=== PATIENT | male | born 1940 | race Caucasian/White ===

== ENCOUNTER 2018-02-06 07:09 | Inpatient (IN) | payer MEDICARE, BC ==
[~2018-02-06] VITALS: Ht 185.4 cm; Wt 154.0 kg
[2018-02-06] VITALS (11 sets, daily range): BP systolic 112–189; BP diastolic 56–98; PULSE 66–96; RESP 16–20; TEMP 98.4–98.6; O2SAT 90–100
[~2018-02-06 07:09] MED LIST: FURO20TA PO; FURO40TA PO; GLIP5 PO; HYDR-3129 PO; LIPI80TA16 PO; METO100T PO; POTA-267 PO; TAB-TAB PO; XARE20TA PO
[2018-02-06] MEDS ORDERED: XARE20TA PO (07:26)
[2018-02-06] MEDS ORDERED: METO100T PO (07:26)
[2018-02-06] MEDS ORDERED: KLOR10TA PO (07:26)
[2018-02-06] MEDS ORDERED: ATOR40TA16 PO (07:26)
[2018-02-06] MEDS ORDERED: DOFE500 PO (07:26)
[2018-02-06] MEDS ORDERED: FURO20TA PO (07:26)
[2018-02-06] MEDS ORDERED: GLIP5TAB8 PO (07:26)
[2018-02-06] MEDS ORDERED: NITROGLYCERIN 2% OINT 1 GM PACKET TOP ONE (07:30)
[2018-02-06] MEDS ORDERED: SODIUM CHLORIDE 0.9% FLUSH 10 ML FLUSH IVF PRN (07:30)
--- NOTE | 2018-02-06 07:50 | PD ---
HPI Chief Complaint: Chest Pain Time Seen by Provider: 07:25 Travel History International Travel<30 days: No Contact w/Intl Traveler<30days: No Traveled to known affect area: No History of Present Illness HPI This is a 77-year-old male with a history of atrial fibrillation, diabetes mellitus, hypertension, hyperlipidemia, who presents today with complaints of chest pain this morning. Patient states it started about 4 AM. He reports it as a substernal pain/pressure like. He reports that as a 5-6 out of pain scale. No radiation. There was associated shortness of breath. Patient states it lasted about a half hour. There is no diaphoresis. Patient has had an occasional cough with no productive phlegm. There are no other complaints at the time of my examination. The patient is taking Xarelto. 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 PFSH Past Medical History Atrial Fibrillation: Yes (AFIB/AFLUTTER) Heart Rhythm Problems: Yes (A-FIB) Cancer: No Cardiac Catheterization: Yes Cardiovascular Problems: Yes High Cholesterol: Yes Chest Pain: No Congestive Heart Failure: Yes Diabetes: Yes (PT STATES PRE-DIABETIC) Patient Takes Glucophage: No Diminished Hearing: No Endocrine: Yes Gastrointestinal Disorders: No Genitourinary: No Hypertension: Yes Immune Disorder: No Implanted Vascular Access Dvce: No Musculoskeletal: No Neurologic: No Psychiatric: No Reproductive: No Respiratory: No Past Surgical History Abdominal Surgery: Yes Cardiac Surgery: Yes (ABLATION X 2, LAST 01/07; STENT TO LAD) Coronary Stent: Yes Other Surgery: Yes Social History Alcohol Use: No (DENIES) Tobacco Use: No Substance Use: No (DENIES) Allergies-Medications (Allergen,Severity, Reaction): Coded Allergies: penicillin G (Unverified Allergy, Mild, RASH, 02/06/18) Reported Meds & Prescriptions Reported Meds & Active Scripts Active Reported Klor-Con 10 (Potassium Chloride) 10 Meq Tab 10 Meq PO DAILY Xarelto (Rivaroxaban) 20 Mg Tab 20 Mg PO DAILY Atorvastatin (Atorvastatin Calcium) 40 Mg Tab 40 Mg PO HS Tikosyn (Dofetilide) 500 Mcg Cap 500 Mcg PO BID For Creatinine Clearance >60 mL/min Glipizide 5 Mg Tab 5 Mg PO BIDAC Take 30 minutes before a meal Metoprolol Tartrate 100 Mg Tab 100 Mg PO TID Furosemide 20 Mg Tab 20 Mg PO DAILY Review of Systems Except as stated in HPI: all other systems reviewed are Neg General / Constitutional: No: Fever, Chills HENT: No: Headaches, Lightheadedness Cardiovascular: Positive: Chest Pain or Discomfort, Irregular Rhythm, No: Palpitations Respiratory: Positive: Shortness of Breath (History of A. fib), No: Cough Gastrointestinal: No: Nausea, Vomiting, Abdominal Pain Genitourinary: No: Dysuria, Decreased Urinary Output Musculoskeletal: Positive: Edema (Chronic), No: Weakness, Pain Neurologic: No: Weakness, Dizziness, Syncope Physical Exam Narrative GENERAL: Well-developed well-nourished male in mild respiratory discomfort SKIN: Focused skin assessment warm/dry. HEAD: Atraumatic. Normocephalic. EYES: No scleral icterus. No injection or drainage. ENT: No nasal bleeding or discharge. Mucous membranes pink and moist. NECK: Trachea midline. No JVD. CARDIOVASCULAR: Regular rate and rhythm. Rate in the low 90s. No murmur appreciated. RESPIRATORY: No accessory muscle use. Clear to auscultation. Breath sounds equal bilaterally. GASTROINTESTINAL: Abdomen soft, non-tender, nondistended. Hepatic and splenic margins not palpable. MUSCULOSKELETAL: No obvious deformities. No clubbing. No cyanosis. 1+ edema bilateral pretibial areas. NEUROLOGICAL: Awake and alert. No obvious cranial nerve deficits. Motor grossly within normal limits. Normal speech. Data Data Last Documented VS Vital Signs Date Time Temp Pulse Resp B/P (MAP) Pulse Ox O2 Delivery O2 Flow Rate FiO2 02/06/18 10:01 71 18 112/59 (76) 93 Nasal Cannula 2.00 02/06/18 07:12 98.6 Orders Orders Basic Metabolic Panel (Bmp) (02/06/18 07:26) Ckmb (Isoenzyme) Profile (02/06/18 07:26) Complete Blood Count With Diff (02/06/18 07:26) Magnesium (Mg) (02/06/18 07:26) Prothrombin Time / Inr (Pt) (02/06/18 07:26) Act Partial Throm Time (Ptt) (02/06/18 07:26) Troponin I (02/06/18 07:26) Ecg Monitoring (02/06/18 07:26) Bilateral Bp Monitoring (02/06/18 07:26) Iv Access Insert/Monitor (02/06/18 07:26) Oximetry (02/06/18 07:26) Oxygen Administration (02/06/18 07:26) Nitroglycerin 2% Oint (Nitroglycerin 2% (02/06/18 07:30) Sodium Chloride 0.9% Flush (Ns Flush) (02/06/18 07:30) Chest, Pa & Lat (02/06/18 07:26) Electrocardiogram (02/06/18 07:12) B-Type Natriuretic Peptide (02/06/18 08:33) CKMB (02/06/18 07:50) CKMB% (02/06/18 07:50) Admit Order (Ed Use Only) (02/06/18 10:06) Labs Laboratory Tests Test 02/06/18 07:50 White Blood Count 9.5 TH/MM3 Red Blood Count 5.02 MIL/MM3 Hemoglobin 15.7 GM/DL Hematocrit 46.7 % Mean Corpuscular Volume 93.1 FL Mean Corpuscular Hemoglobin 31.2 PG Mean Corpuscular Hemoglobin Concent 33.5 % Red Cell Distribution Width 14.2 % Platelet Count 158 TH/MM3 Mean Platelet Volume 8.6 FL Neutrophils (%) (Auto) 57.9 % Lymphocytes (%) (Auto) 28.6 % Monocytes (%) (Auto) 10.3 % Eosinophils (%) (Auto) 2.7 % Basophils (%) (Auto) 0.5 % Neutrophils # (Auto) 5.5 TH/MM3 Lymphocytes # (Auto) 2.7 TH/MM3 Monocytes # (Auto) 1.0 TH/MM3 Eosinophils # (Auto) 0.3 TH/MM3 Basophils # (Auto) 0.0 TH/MM3 CBC Comment DIFF FINAL Differential Comment Prothrombin Time 12.0 SEC Prothromb Time International Ratio 1.2 RATIO Activated Partial Thromboplast Time 32.4 SEC Blood Urea Nitrogen 24 MG/DL Creatinine 1.42 MG/DL Random Glucose 123 MG/DL Calcium Level 8.6 MG/DL Magnesium Level 2.0 MG/DL Sodium Level 141 MEQ/L Potassium Level 4.5 MEQ/L Chloride Level 107 MEQ/L Carbon Dioxide Level 28.2 MEQ/L Anion Gap 6 MEQ/L Estimat Glomerular Filtration Rate 48 ML/MIN Total Creatine Kinase 245 U/L Creatine Kinase MB 7.5 NG/ML Troponin I 0.32 NG/ML [facility] Medical Decision Making Medical Screen Exam Complete: Yes Emergency Medical Condition: Yes Differential Diagnosis ACS versus CHF versus pneumonia versus musculoskeletal pain. Narrative Course 77-year-old male with a history of hypertension, hyperlipidemia, diabetes mellitus, coronary artery disease, atrial fibrillation, who presents today with complaints of shortness of breath and chest pain this morning. The patient is pain-free at the time of my evaluation. Patient's blood pressure was elevated in the 190 systolic. Patient had a O2 sat of 90% on room air. Chest x-ray shows mild pulmonary vascular congestion. Patient also has an elevated troponin at 0.3. He will be admitted to the hospital and his troponin will be trended. The patient does see Dr. Gomez and will be a consult with her or her partners. I discussed with the patient the findings and he is amenable to the plan. He has been given Lasix 40 mg IV 1 dose. He also has the nitroglycerin paste on his chest wall and his repeat blood pressure is within normal limits. Diagnosis Primary Impression: Non-STEMI (non-ST elevated myocardial infarction) Additional Impressions: CHF exacerbation Kidney injury Diabetes mellitus Hyperlipidemia Anticoagulated History of atrial fibrillation Admitting Information Admitting Physician Requests: Admit Olu Torres MD Feb 06, 2018 07:50
--- NOTE | 2018-02-06 08:13 | RADRPT ---
EXAM DATE/TIME: 02/06/2018 07:37 [place] COMPARISON: No previous studies available for comparison. INDICATIONS : Shortness of breath. Cough and chest pain. MEDICAL HISTORY : Diabetes. SURGICAL HISTORY : Coronary artery stent. ENCOUNTER: Initial ACUITY: 1 day PAIN SCORE: 3/10 LOCATION: Bilateral chest FINDINGS: PA and lateral views of the chest demonstrate the lungs to be symmetrically aerated without evidence of mass, infiltrate or effusion. Mild interstitial prominence within normal size heart. No other co nsolidation. No pneumothorax. No pleural effusion. CONCLUSION: Mild interstitial prominence within normal size heart in this patient with history of congestive fail ure. Correlation suggested Robin Bowers MD FACR on February 06, 2018 at 8:09 Board Certified Radiologist. This report was verified electronically.
[2018-02-06 08:21] LABS: AUTOMATED NEUTROPHIL # 5.5 TH/MM3 (1.8-7.7); BASOPHIL % 0.5 % (0.0-2.0); EOSINOPHIL # 0.3 TH/MM3 (0-0.4); EOSINOPHIL % 2.7 % (0.0-4.0); HEMATOCRIT 46.7 % (39.0-51.0); HEMOGLOBIN 15.7 GM/DL (13.0-17.0); LYMPH % 28.6 % (9.0-44.0); LYMPHOCYTE # 2.7 TH/MM3 (1.0-4.8); MEAN CELL VOLUME 93.1 FL (80.0-100.0); MEAN CORPUSCULAR HEMOGLOBIN 31.2 PG (27.0-34.0); MEAN CORPUSCULAR HGB CONC 33.5 % (32.0-36.0); MEAN PLATELET VOLUME 8.6 FL (7.0-11.0); MONO % 10.3 % (0.0-8.0); NEUT % 57.9 % (16.0-70.0); PLATELET COUNT 158 TH/MM3 (150-450); RED BLOOD COUNT 5.02 MIL/MM3 (4.50-5.90); RED CELL DISTRIBUTION WIDTH 14.2 % (11.6-17.2); WHITE BLOOD COUNT 9.5 TH/MM3 (4.0-11.0)
[2018-02-06 08:26] LABS: INTERNATIONAL NORMALIZED RATIO 1.2 RATIO
[2018-02-06 09:09] LABS: BICARBONATE 28.2 MEQ/L (21.0-32.0); BLOOD UREA NITROGEN 24 MG/DL (7-18); CALCIUM 8.6 MG/DL (8.5-10.1); CHLORIDE 107 MEQ/L (98-107); CREATININE 1.42 MG/DL (0.60-1.30); GLOMERULAR FILTRATION RATE 48 ML/MIN (>89); GLUCOSE,RANDOM 123 MG/DL (74-106); SODIUM (NA) 141 MEQ/L (136-145); TROPONIN I 0.32 NG/ML (0.02-0.05)
--- NOTE | 2018-02-06 10:17 | HHI.HP ---
[facility] Service Family Medicine Primary Care Physician Alvin Mcdermott, DO Admission Diagnosis non STEMI, CHF,HTN, CAD, DM Diagnoses: International Travel<30 Days: No Contact w/Intl Traveler<30days: No Known Affected Area: No History of Present Illness Patient is a 77 year old male with a past medical history significant of A.fib s /p ablation and electrocardioversion, CAD s/p MD with stent placement, CHF, DM Type II, HTN and hyperlipidemia who presents with chest discomfort and shortness of breath since 4:00 a.m. on day of admission. The patient had just laid down for the night when he started to experience a 2/10, non-radiating discomfort across his chest, "located more toward the middle." He says it wasn' t "pain per se." It felt like heartburn; patient had eaten dinner at 22:00. He also reports shortness of breath and non-productive cough. He tossed and turned in discomfort for an hour. He states that as soon as he sat up, his symptoms improved. He took his vitals: pulse ox 89-90% on room air, HR 88, and BP 250/ 50. By 6:30 a.m., he was on his way to the hospital despite complete resolution of symptoms. Patient did not take any medication to relieve symptoms. He denies fever and chills. Per , he napped more than usual yesterday. 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 He says he has ECHO scheduled for May. (Fannie Calvillo MD R1) Review of Systems Constitutional: DENIES: Fatigue, Fever, Weight gain, Weight loss, Chills, Change in appetite Eyes: DENIES: Blurred vision, Vision loss, Double Vision Ears, nose, mouth, throat: COMPLAINS OF: Running Nose (At baseline), DENIES: Nasal discharge, Throat pain, Ear Pain Respiratory: COMPLAINS OF: Cough, Wheezing, Shortness of breath, DENIES: Sputum production Cardiovascular: COMPLAINS OF: Chest pain, Lower Extremity Edema (At baseline ) , DENIES: Palpitations Gastrointestinal: DENIES: Abdominal pain, Black stools, Bloody stools, Constipation, Diarrhea, Nausea, Vomiting Musculoskeletal: DENIES: Joint pain, Muscle aches Integumentary: DENIES: Nail changes, Rash Neurologic: DENIES: Headache Psychiatric: DENIES: Anxiety, Depression (Fannie Calvillo MD R1) Past Family Social History Past Medical History Atrial fibrillation - s/p ablation x3 - temporary success; electrocardioversion - 2 years ago; A fib controlled since electrocardioversion and with current meds. CAD Myocardial infarction - 2012 s/p stent placement. Pre-diabetes mellitus Hyperlipidemia Hypertension Past Surgical History Ablations x3 as above. Cyst removal as a teenager Reported Medications Klor-Con 10 (Potassium Chloride) 10 Meq Tab 10 Meq PO DAILY Xarelto (Rivaroxaban) 20 Mg Tab 20 Mg PO DAILY Atorvastatin (Atorvastatin Calcium) 40 Mg Tab 40 Mg PO HS Tikosyn (Dofetilide) 500 Mcg Cap 500 Mcg PO BID Glipizide 5 Mg Tab 5 Mg PO BIDAC Metoprolol Tartrate 100 Mg Tab 100 Mg PO TID Furosemide 20 Mg Tab 20 Mg PO DAILY (Fannie Calvillo MD R1) Allergies: Coded Allergies: penicillin G (Unverified Allergy, Mild, RASH, 02/06/18) Active Ordered Medications Current Medications Medications (Trade) Dose Ordered Sig/Marilyn Route Start Time Stop Time Status Last Admin (Lipitor) 40 mg HS PO 02/06/18 21:00 (Lasix) 20 mg DAILY PO 02/06/18 11:30 02/06/18 11:57 (Lopressor) 100 mg TID PO 02/06/18 13:00 02/06/18 13:38 (KCl) 10 meq DAILY PO 02/06/18 11:30 02/06/18 11:57 (Xarelto) 20 mg DAILY PO 02/06/18 12:00 Future Hold 02/06/18 11:57 (NS Flush) 2 ml BID IV FLUSH 02/06/18 21:00 (NS Flush) 2 ml UNSCH PRN IV FLUSH 02/06/18 11:15 (Aspirin) 325 mg NOW PO 02/06/18 11:15 02/07/18 11:14 (Nitroglycerin 2% Oint) 0.5 inch Q6HR PRN TOP 02/06/18 11:15 (Morphine Inj) 2 mg Q1HR PRN IV PUSH 02/06/18 11:15 (Narcan Inj) 0.4 mg UNSCH PRN IV PUSH 02/06/18 11:15 (Loraine-Colace) 1 tab BID PO 02/06/18 21:00 (Milk Of Magnesia Liq) 30 ml Q12H PRN PO 02/06/18 11:15 (Senokot) 17.2 mg Q12H PRN PO 02/06/18 11:15 (Dulcolax Supp) 10 mg DAILY PRN RECTAL 02/06/18 11:15 (Lactulose Liq) 30 ml DAILY PRN PO 02/06/18 11:15 (NovoLOG SUPPLEMENTAL SCALE) 1 ACHS SLIDING SCALE SQ 02/06/18 12:00 (Tikosyn) 500 mcg BID PO 02/06/18 12:00 02/06/18 11:57 (D50w (Vial) Inj) 50 ml UNSCH PRN IV PUSH 02/06/18 12:00 (Glucagon Inj) 1 mg UNSCH PRN OTHER 02/06/18 12:00 Family History Mother - breast cancer Father (passed at 81 y/o)- gastric ulcer, MD Social History Lives with of 54 years. 's contact information: [phone] (cell) [phone] (home) Alcohol: None. Tobacco: None; used to smoke. Drugs: None. (Fannie Calvillo MD R1) Physical Exam Vital Signs Vital Signs Date Time Temp Pulse Resp B/P (MAP) Pulse Ox O2 Delivery O2 Flow Rate FiO2 02/06/18 10:01 71 18 112/59 (76) 93 Nasal Cannula 2.00 02/06/18 08:07 77 18 135/64 (87) 93 Nasal Cannula 2.00 02/06/18 07:15 90 Nasal Cannula 2.00 02/06/18 07:15 92 92 Nasal Cannula 2.00 02/06/18 07:12 98.6 96 20 189/98 (128) 90 Physical Exam GENERAL: This is a well-nourished, well-developed, morbidly obese patient, in no apparent distress. SKIN: Warm and dry. HEAD: Atraumatic. Normocephalic. No temporal or scalp tenderness. EYES: Pupils equal round and reactive. Extraocular motions intact. No scleral icterus. No injection or drainage. ENT: Nose without bleeding, purulent drainage or septal hematoma; but nasal cannula in place so exam is limited. Throat without erythema, tonsillar hypertrophy or exudate. Uvula midline. Airway patent. NECK: Trachea midline. No JVD or lymphadenopathy. Supple, nontender, no meningeal signs. CARDIOVASCULAR: Regular rate and rhythm without murmurs, gallops, or rubs. RESPIRATORY: Clear to auscultation. Breath sounds equal bilaterally. No wheezes , rales, or rhonchi. GASTROINTESTINAL: Abdomen soft, non-tender, nondistended. No hepato-splenomegaly , or palpable masses. No guarding. MUSCULOSKELETAL: Extremities without clubbing, cyanosis. Left foot with 2+ edema. No joint tenderness, effusion, or edema noted. No calf tenderness. NEUROLOGICAL: Awake and alert. Cranial nerves II through XII intact. Motor and sensory grossly within normal limits. Five out of 5 muscle strength in all muscle groups. Normal speech. Laboratory Laboratory Tests Test 02/06/18 07:50 White Blood Count 9.5 Red Blood Count 5.02 Hemoglobin 15.7 Hematocrit 46.7 Mean Corpuscular Volume 93.1 Mean Corpuscular Hemoglobin 31.2 Mean Corpuscular Hemoglobin Concent 33.5 Red Cell Distribution Width 14.2 Platelet Count 158 Mean Platelet Volume 8.6 Neutrophils (%) (Auto) 57.9 Lymphocytes (%) (Auto) 28.6 Monocytes (%) (Auto) 10.3 Eosinophils (%) (Auto) 2.7 Basophils (%) (Auto) 0.5 Neutrophils # (Auto) 5.5 Lymphocytes # (Auto) 2.7 Monocytes # (Auto) 1.0 Eosinophils # (Auto) 0.3 Basophils # (Auto) 0.0 CBC Comment DIFF FINAL Differential Comment Prothrombin Time 12.0 Prothromb Time International Ratio 1.2 Activated Partial Thromboplast Time 32.4 Blood Urea Nitrogen 24 Creatinine 1.42 Random Glucose 123 Calcium Level 8.6 Magnesium Level 2.0 Sodium Level 141 Potassium Level 4.5 Chloride Level 107 Carbon Dioxide Level 28.2 Anion Gap 6 Estimat Glomerular Filtration Rate 48 Total Creatine Kinase 245 Creatine Kinase MB 7.5 Troponin I 0.32 (Fannie Calvillo MD R1) Result Diagram: 02/06/18 0750 02/06/18 0750 Imaging Last 72 hours Impressions Chest X-Ray 02/06/18 1901 Signed Impressions: Service Date/Time: Tuesday, February 06, 2018 07:37 - CONCLUSION: Mild interstitial prominence within normal size heart in this patient with history of congestive failure. Correlation suggested Robin Bowers MD FACR (Fannie Calvillo MD R1) Caprini VTE Risk Assessment Caprini VTE Risk Assessment: Mod/High Risk (score >= 2) Caprini Risk Assessment Model Point Value = 1 Point Value = 2 Point Value = 3 Point Value = 5 Age 41-60 Minor surgery BMI > 25 kg/m2 Swollen legs Varicose veins or History of unexplained or recurrent spontaneous Oral contraceptives or hormone replacement Sepsis (< 1 month) Serious lung disease, including pneumonia (< 1 month) Abnormal pulmonary function Acute myocardial infarction Congestive heart failure (< 1 month) History of inflammatory bowel disease Medical patient at bed rest Age 61-74 Arthroscopic surgery Major open surgery (> 45 min) Laparoscopic surgery (> 45 min) Malignancy Confined to bed (> 72 hours) Immobilizing plaster cast Central venous access Age >= 75 History of VTE Family history of VTE Factor V Leiden Prothrombin [id number] Lupus anticoagulant Anticardiolipin antibodies Elevated serum homocysteine Heparin-induced thrombocytopenia Other congenital or acquired thrombophilia Stroke (< 1 month) Elective arthroplasty Hip, pelvis, or leg fracture Acute spinal cord injury (< 1 month) Prophylaxis Regimen Total Risk Factor Score Risk Level Prophylaxis Regimen 0-1 Low Early ambulation 2 Moderate Order ONE of the following: *Sequential Compression Device (SCD) *Heparin 5000 units SQ BID 3-4 Higher Order ONE of the following medications: *Heparin 5000 units SQ TID *Enoxaparin/Lovenox 40 mg SQ daily (WT < 150 kg, CrCl > 30 mL/min) *Enoxaparin/Lovenox 30 mg SQ daily (WT < 150 kg, CrCl > 10-29 mL/min) *Enoxaparin/Lovenox 30 mg SQ BID (WT < 150 kg, CrCl > 30 mL/min) AND/OR *Sequential Compression Device (SCD) 5 or more Highest Order ONE of the following medications: *Heparin 5000 units SQ TID (Preferred with Epidurals) *Enoxaparin/Lovenox 40 mg SQ daily (WT < 150 kg, CrCl > 30 mL/min) *Enoxaparin/Lovenox 30 mg SQ daily (WT < 150 kg, CrCl > 10-29 mL/min) *Enoxaparin/Lovenox 30 mg SQ BID (WT < 150 kg, CrCl > 30 mL/min) AND *Sequential Compression Device (SCD) (Fannie Calvillo MD R1) Assessment and Plan Assessment and Plan Patient is a 77 year old male with a past medical history significant of A.fib s /p ablation and electrocardioversion, CAD s/p MD with stent placement, CHF, DM Type II, HTN and hyperlipidemia who presents with chest discomfort and shortness of breath since 4:00 a.m. on day of admission. In ED, Troponin of 0.[address] depression in lateral leads. Admitted for ACS rule-out. Code Status Full code. Discussed Condition With Drs. Elliott and Angel. (Fannie Calvillo MD R1) Attending Attestation Patient seen and examined, discussed with resident team; pt seen in ER at admission. I agree with assessment and management as documented and discussed with me. The patient has been seen and examined. The chart and all resident notes have been reviewed. I agree that inpatient care is appropriate and that a two midnight stay is expected for the reasons documented in the resident history and physical. I have discussed this with the resident and certify the resident s order for inpatient admission. Pt with acute onset of chest discomfort early in the morning, which continued for roughly 1-2 hours. He sought attention in ER, where NSTEMI was diagnosed, based on 2nd set of troponin. In addition, on exam: No tenderness to palpation of sternum. Cardiology has been consulted, appreciate recs. Anticipate cardiac cath on Friday, as pt received Xarelto yesterday at home and today. 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 Chest discomfort relieved without medical intervention. During admission encounter, patient's oxygen saturation is 94% on 2L of oxygen via NC. He is breathing comfortably. EKG with lateral lead (V4, V5) ST depression. Repeat EKG without evidence of ST elevation or depression. Follow-up repeat q6hr EKG. Troponin: 0.32 -> 5.57. Follow-up repeat q6hr Troponin. CK-MB: 7.5 -> 17.6. Follow-up repeat q6hr CK-MB. Despite significant increase in cardiac enzymes, patient denies chest pain and associated symptoms. Call was placed to Dr. Tanesha Gomez, who advised to hold Xarelto to allow for possible cardiac cath on Friday. Cardiology consult placed. Awaiting further recommendations. (2) CAD (coronary artery disease) ICD Codes: I25.10 - Atherosclerotic heart disease of [place] coronary artery without angina pectoris Plan: Patient with history of CAD and MD in 2012 s/p stent placement. * See Plan for Non-STEMI. (3) History of atrial fibrillation ICD Codes: Z86.79 - Personal history of other diseases of the circulatory system Status: Acute Plan: Patient with history of A.fib s/p ablations x3 and electrocardioversion. * Continue home meds. (4) CHF (congestive heart failure) ICD Codes: I50.9 - Heart failure, unspecified Plan: Patient with history of CHF. BNP on admission 31. ECHO CONCLUSIONS 02/06: * Normal left ventricular size and wall thickness. * The left ventricular systolic function is normal with an estimated ejection fraction in the range of 60-65%. * No definite wall motion abnormalities. * Moderate mitral annular calcification. * Diffuse mild calcification of the aortic valve. (5) Hypertension ICD Codes: I10 - Essential (primary) hypertension Plan: Patient with history of hypertension. * Continue home meds. (6) SATURNINO (acute kidney injury) ICD Codes: N17.9 - Acute kidney failure, unspecified Status: Acute Plan: Patient found to have Cr 1.42 and BUN 24 on admission. * Monitor. Repeat CMP in a.m. (7) Diabetes mellitus ICD Codes: E11.9 - Type 2 diabetes mellitus without complications Status: Acute Plan: Patient with history of pre-diabetes, per patient. Patient with history of diabetes, per chart. On admission, random glucose 123. * Hemoglobin A1C pending. * Held home meds. * Low NovoLOG Scale. (8) Hyperlipidemia ICD Codes: E78.5 - Hyperlipidemia, unspecified Status: Acute Plan: Patient with history of hyperlipidemia. * Continue home meds. (9) Fluid, Nutrition, Electrolyte, and Prophylaxis Status: Acute Plan: Fluid: * IV fluid not indicated at this time. Nutrition: * Diet NPO except Meds. * Diet Progression: NPO except meds for 4 hours, then advance to full liquid diet as tolerated, 4 gm sodium, 40gm fat. No caffeine. Electrolyte: * Monitor and replete as necessary. Prophylaxis: * SCDs. * Patient received dose of Xarelto in ED. Xarelto held in anticipation of cardiac cath on Friday. (Fannie Calvillo MD R1) Fannie Calvillo MD R1 Feb 06, 2018 10:17 Florinda Elliott MD Feb 07, 2018 07:17
[2018-02-06] MEDS ORDERED: NALOXONE HCL 0.4 MG/ML AMP IV PUSH PRN (11:15)
[2018-02-06] MEDS ORDERED: BISACODYL 10 MG SUPP RECTAL PRN (11:15)
[2018-02-06] MEDS ORDERED: SODIUM CHLORIDE 0.9% FLUSH 10 ML FLUSH IV FLUSH PRN (11:15)
[2018-02-06] MEDS ORDERED: HEPARIN SODIUM - SQ 10,000 UNITS/ML VIAL SQ SCH (11:15)
[2018-02-06] MEDS ORDERED: MAGNESIUM HYDROXIDE SUSP 30 ML CUP PO PRN (11:15)
[2018-02-06] MEDS ORDERED: SENNOSIDES 8.6 MG TAB PO PRN (11:15)
[2018-02-06] MEDS ORDERED: NITROGLYCERIN 2% OINT 1 GM PACKET TOP PRN (11:15)
[2018-02-06] MEDS ORDERED: ASPIRIN 325 MG TAB PO SCH (11:15)
[2018-02-06] MEDS ORDERED: LACTULOSE SYRUP 20 GM/30 ML CUP PO PRN (11:15)
[2018-02-06] MEDS: POTASSIUM CHLORIDE 10 MEQ CONTROLLED RELEASE TAB PO SCH (11:57)
[2018-02-06] MEDS: DOFETILIDE 250 MCG CAP PO SCH ×2 (11:57→21:30)
[2018-02-06] MEDS: FUROSEMIDE 20 MG TAB PO SCH (11:57)
[2018-02-06] MEDS: INSULIN ASPART SUPPLEMENTAL SCALE SQ SCH ×3 (12:00→21:00)
[2018-02-06] MEDS ORDERED: GLUCAGON 1 MG/ML VIAL OTHER PRN (12:00)
[2018-02-06] MEDS ORDERED: DEXTROSE 50% IN WATER 50 ML VIAL(D50) IV PUSH PRN (12:00)
[2018-02-06] MEDS ORDERED: RIVAROXABAN 20 MG TAB PO SCH (12:00)
[2018-02-06] MEDS ORDERED: DOFETILIDE 500 MCG CAP PO SCH (12:00)
[2018-02-06 13:37] LABS: TROPONIN I 5.57 NG/ML (0.02-0.05)
[2018-02-06] MEDS: METOPROLOL TARTRATE 100 MG TAB PO SCH ×2 (13:38→18:11)
--- NOTE | 2018-02-06 15:58 | ECHRPT ---
Indication: CHF CONCLUSIONS Normal left ventricular size and wall thickness. The left ventricular systolic function is normal wi th an estimated ejection fraction in the range of 60-65%. No definite wall motion abnormalities. Moderate mitral annular calcification. Diffuse mild calcification of the aortic valve. BP: / HR: 65 Rhythm: Sinus MEASUREMENTS (Male / Female) Normal Values Technical Quality:Fair 2D ECHO LV Diastolic Diameter PLAX 3.8 cm 4.2 - 5.9 / 3.9 - 5.3 cm LV Systolic Diameter PLAX 2.9 cm IVS Diastolic Thickness 1.3 cm 0.6 - 1.0 / 0.6 - 0.9 cm LVPW Diastolic Thickness 1.2 cm 0.6 - 1.0 / 0.6 - 0.9 cm LV Relative Wall Thickness 0.7 RV Internal Dim ED PLAX 4.1 cm LA Systolic Diameter LX 4.3 cm 3.0 - 4.0 / 2.7 - 3.8 cm FINDINGS LEFT VENTRICLE Normal left ventricular size and wall thickness. The left ventricular systolic function is normal wi th an estimated ejection fraction in the range of 60-65%. No definite wall motion abnormalities. RIGHT VENTRICLE Normal right ventricular size and systolic function. LEFT ATRIUM The left atrial size is normal. RIGHT ATRIUM The right atrial size is normal. ATRIAL SEPTUM Normal atrial septal thickness without atrial level shunting by limited color doppler interrogation. AORTA The aortic root and proximal ascending aorta are normal in size on limited imaging. MITRAL VALVE Moderate mitral annular calcification. AORTIC VALVE Diffuse mild calcification of the aortic valve. TRICUSPID VALVE Structurally normal tricuspid valve. No tricuspid valve stenosis or regurgitation. PULMONARY VALVE The pulmonary valve is not well visualized. VESSELS The inferior vena cava is normal in size. PERICARDIUM No pericardial effusion. Doni Vizcaino MD (Electronically Signed) Final Date:06 February 2018 15:58
[2018-02-06 18:38] LABS: MAGNESIUM 1.8 MG/DL (1.5-2.5)
--- NOTE | 2018-02-06 18:48 | MB ---
cc: Tanesha Gomez MD DATE: 02/06/2018 REASON FOR CONSULTATION: Non-ST elevation myocardial infarction. HISTORY OF PRESENT ILLNESS: Mr. Robledo is a 77-year-old man who does have a history of CAD with prior stenting of his LAD, atrial fibrillation, and diabetes. The patient reports that he had a sudden onset at 4 a.m. of some substernal chest discomfort. He reports it was moderate to severe, substernal and into the left chest. There was no other radiation. He did not have any other prior episodes. It did last up to 2 hours. The patient notes that at home he subsequently took his blood pressure, and systolic was up around 240 or 250. He is currently pain free. PAST MEDICAL HISTORY: Significant for atrial fibrillation with ablation in 2011 and 2013, carotid artery disease, cellulitis, coronary artery disease with a mid LAD stent (3.5 x 18 mm Xience) in October 2011, diabetes, hyperlipidemia, hypertension, morbid obesity, peripheral neuropathy, pneumonia, tremors, renal insufficiency, aortic stenosis. FAMILY HISTORY: Noncontributory. SOCIAL HISTORY: The patient is and is a former smoker. OUTPATIENT MEDICATIONS: Include Xarelto, metoprolol 100 mg t.i.d., glipizide, furosemide, dofetilide 250 mg b.i.d., and atorvastatin 40 mg at bedtime. REVIEW OF SYSTEMS: Except as mentioned in the HPI, all 12 systems are negative. PHYSICAL EXAMINATION: VITAL SIGNS: 66, 18, 115/56. On arrival, his blood pressure was 189/98. GENERAL: He is a morbidly obese man who is in no apparent distress. NECK: Free from JVD. LUNGS: Bilaterally clear to auscultation. CARDIOVASCULAR: He has a normal S1 and S2. There is a II/ systolic murmur. No rubs or gallops are appreciated. ABDOMEN: Soft. EXTREMITIES: Mild edema. LABORATORY DATA: Show a creatinine of 1.42, an initial troponin of 0.32 and subsequent troponin of 5.57. The BNP is 31. Echocardiogram shows EF of 60-65 percent. The aortic valve is noted to be calcified. There is no peak gradient listed. IMPRESSION: Non-ST elevation myocardial infarction (UT): I am concerned that this does represent a primary UT, given his history of coronary artery disease. The patient has had some issues with renal insufficiency in the past that does cloud the presentation, in addition to the hypertension. At this point, the gentleman has had his Xarelto this morning and is pain free. Thus, I would not add any heparin at this point. I would discontinue the Xarelto, as I do feel if we can get his renal insufficiency improved, that further evaluation with a catheterization would be optimal. He did have initially high blood pressure, which, again, obviously can cause a secondary UT. However, his overall control is good. Thus, I again am concerned that it is a primary event, not a secondary. Atrial fibrillation: The patient will continue on his present medications minus the Xarelto. Dyslipidemia: We will obtain fasting lipids and continue his statin. MD MAGALY Garcia/ARTHUR , 06:22 PM , 06:47 PM
[2018-02-06 18:49] LABS: TROPONIN I 4.59 NG/ML (0.02-0.05)
--- NOTE | 2018-02-06 19:44 | EKG ---
Date Performed: 02/06/2018 Time Performed: 12:51:24 PTAGE: 77 years EKG: Sinus rhythm PROLONGED QT INTERVAL ABNORMAL ECG Since the PREVIOUS TRACING , no significant change noted PREVIOUS TRACIN02/06/2018 12.50 DOCTOR: Eusebio Stewart Interpretating Date/Time 02/06/2018 19:42:47
[2018-02-06] MEDS: ATORVASTATIN 40 MG TAB PO SCH (21:30)
[2018-02-06] MEDS: SODIUM CHLORIDE 0.9% FLUSH 10 ML FLUSH IV FLUSH SCH (21:30)
[2018-02-06] MEDS: DOCUSATE SODIUM 50 MG/SENNA 8.6 MG TAB PO SCH (21:30)
[2018-02-07] VITALS (30 sets, daily range): BP systolic 129–153; BP diastolic 73–93; PULSE 62–100; RESP 16–17; TEMP 97.4–98.6; O2SAT 93–97
[2018-02-07 05:04] LABS: HEMATOCRIT 41.5 % (39.0-51.0); HEMOGLOBIN 13.9 GM/DL (13.0-17.0); MEAN CELL VOLUME 92.5 FL (80.0-100.0); MEAN CORPUSCULAR HGB CONC 33.5 % (32.0-36.0); MEAN PLATELET VOLUME 8.6 FL (7.0-11.0); PLATELET COUNT 153 TH/MM3 (150-450); RED BLOOD COUNT 4.49 MIL/MM3 (4.50-5.90); RED CELL DISTRIBUTION WIDTH 14.3 % (11.6-17.2); WHITE BLOOD COUNT 11.3 TH/MM3 (4.0-11.0)
[2018-02-07 05:29] LABS: ALBUMIN 3.3 GM/DL (3.4-5.0); ALT (GPT) 24 U/L (12-78); AST (GOT) 27 U/L (15-37); BICARBONATE 30.3 MEQ/L (21.0-32.0); BLOOD UREA NITROGEN 20 MG/DL (7-18); CALCIUM 8.4 MG/DL (8.5-10.1); CHLORIDE 105 MEQ/L (98-107); CHOLESTEROL 133 MG/DL (120-200); CREATININE 0.98 MG/DL (0.60-1.30); GLOMERULAR FILTRATION RATE 74 ML/MIN (>89); GLUCOSE,RANDOM 100 MG/DL (74-106); SODIUM (NA) 144 MEQ/L (136-145); TRIGLYCERIDES 193 MG/DL (42-150)
[2018-02-07 05:38] LABS: ALKALINE PHOSPHATASE 79 U/L (45-117); CHOLESTEROL/ HDL RATIO 3.59 RATIO; LDL CHOLESTEROL 57 MG/DL (0-99); TOTAL BILIRUBIN ADULT 0.9 MG/DL (0.2-1.0); TOTAL PROTEIN 6.5 GM/DL (6.4-8.2)
[2018-02-07] MEDS: INSULIN ASPART SUPPLEMENTAL SCALE SQ SCH ×4 (08:00→21:00)
[2018-02-07] MEDS: DOCUSATE SODIUM 50 MG/SENNA 8.6 MG TAB PO SCH ×2 (08:27→21:00)
[2018-02-07] MEDS: SODIUM CHLORIDE 0.9% FLUSH 10 ML FLUSH IV FLUSH SCH ×2 (08:27→21:28)
[2018-02-07] MEDS: POTASSIUM CHLORIDE 10 MEQ CONTROLLED RELEASE TAB PO SCH (08:27)
[2018-02-07] MEDS: METOPROLOL TARTRATE 100 MG TAB PO SCH ×3 (08:27→17:40)
[2018-02-07] MEDS: FUROSEMIDE 20 MG TAB PO SCH (08:27)
[2018-02-07] MEDS: DOFETILIDE 250 MCG CAP PO SCH ×2 (08:43→21:28)
--- NOTE | 2018-02-07 10:16 | PD.CARD.PN ---
Subjective Subjective Remarks Pt without CV complaints Objective Medications Current Medications Medications (Trade) Dose Ordered Sig/Marilyn Route Start Time Stop Time Status Last Admin (Lipitor) 40 mg HS PO 02/06/18 21:00 02/06/18 21:30 (Lasix) 20 mg DAILY PO 02/06/18 11:30 02/07/18 08:27 (Lopressor) 100 mg TID PO 02/06/18 13:00 02/07/18 08:27 (KCl) 10 meq DAILY PO 02/06/18 11:30 02/07/18 08:27 (Xarelto) 20 mg DAILY PO 02/06/18 12:00 Future Hold 02/06/18 11:57 (NS Flush) 2 ml BID IV FLUSH 02/06/18 21:00 02/07/18 08:27 (NS Flush) 2 ml UNSCH PRN IV FLUSH 02/06/18 11:15 (Aspirin) 325 mg NOW PO 02/06/18 11:15 02/07/18 11:14 (Nitroglycerin 2% Oint) 0.5 inch Q6HR PRN TOP 02/06/18 11:15 (Morphine Inj) 2 mg Q1HR PRN IV PUSH 02/06/18 11:15 (Narcan Inj) 0.4 mg UNSCH PRN IV PUSH 02/06/18 11:15 (Loraine-Colace) 1 tab BID PO 02/06/18 21:00 02/07/18 08:27 (Milk Of Magnesia Liq) 30 ml Q12H PRN PO 02/06/18 11:15 02/07/18 08:49 (Senokot) 17.2 mg Q12H PRN PO 02/06/18 11:15 (Dulcolax Supp) 10 mg DAILY PRN RECTAL 02/06/18 11:15 (Lactulose Liq) 30 ml DAILY PRN PO 02/06/18 11:15 (NovoLOG SUPPLEMENTAL SCALE) 1 ACHS SLIDING SCALE SQ 02/06/18 12:00 (Tikosyn) 500 mcg BID PO 02/06/18 12:00 02/07/18 08:43 (D50w (Vial) Inj) 50 ml UNSCH PRN IV PUSH 02/06/18 12:00 (Glucagon Inj) 1 mg UNSCH PRN OTHER 02/06/18 12:00 Vital Signs / I&O Vital Signs Date Time Temp Pulse Resp B/P (MAP) Pulse Ox O2 Delivery O2 Flow Rate FiO2 02/07/18 07:59 98.4 89 17 148/89 (108) 94 02/07/18 06:00 92 02/07/18 05:00 88 02/07/18 04:00 88 02/07/18 03:40 93 16 134/82 (99) 93 02/07/18 03:00 82 02/07/18 02:00 80 02/07/18 01:00 82 02/07/18 00:00 80 02/06/18 23:22 92 21 02/06/18 23:10 75 16 147/71 (96) 93 02/06/18 23:00 75 02/06/18 22:00 70 02/06/18 21:30 77 02/06/18 21:00 98.4 69 16 125/67 (86) 93 02/06/18 20:54 02/06/18 20:45 98 Nasal Cannula 2.00 02/06/18 19:30 Nasal Cannula 2.00 02/06/18 15:30 66 18 115/56 (75) 100 Room Air I/O 02/06/18 02/06/18 02/06/18 02/07/18 02/07/18 02/07/18 07:00 15:00 23:00 07:00 15:00 23:00 Intake Total 120 ml 280 ml Output Total 600 ml Balance -600 ml 120 ml 280 ml Intake Oral 120 ml 280 ml Output Urine Total 600 ml # Voids 1 3 # Bowel Movements 0 Physical Exam GENERAL: Well developed, well nourished. No acute distress. HEENT: Jugular venous pressure is normal. CHEST: Lungs clear to auscultation bilaterally. Unlabored respiratory effort. CARDIAC: Regular rate and rhythm without S3, S4, or murmur. ABDOMEN: Soft, nontender, no hepatosplenomegaly. Bowel sounds present. EXTREMITIES: No clubbing, cyanosis, trace edema. Laboratory Laboratory Tests Test 02/06/18 12:40 02/06/18 17:45 02/06/18 19:15 02/07/18 03:50 Total Creatine Kinase 295 U/L 282 U/L Creatine Kinase MB 17.6 NG/ML 15.9 NG/ML Troponin I 5.57 NG/ML 4.59 NG/ML 3.22 NG/ML Magnesium Level 1.8 MG/DL White Blood Count 11.3 TH/MM3 Red Blood Count 4.49 MIL/MM3 Hemoglobin 13.9 GM/DL Hematocrit 41.5 % Mean Corpuscular Volume 92.5 FL Mean Corpuscular Hemoglobin 31.0 PG Mean Corpuscular Hemoglobin Concent 33.5 % Red Cell Distribution Width 14.3 % Platelet Count 153 TH/MM3 Mean Platelet Volume 8.6 FL Blood Urea Nitrogen 20 MG/DL Creatinine 0.98 MG/DL Random Glucose 100 MG/DL Total Protein 6.5 GM/DL Albumin 3.3 GM/DL Calcium Level 8.4 MG/DL Alkaline Phosphatase 79 U/L Aspartate Amino Transf (AST/SGOT) 27 U/L Alanine Aminotransferase (ALT/SGPT) 24 U/L Total Bilirubin 0.9 MG/DL Sodium Level 144 MEQ/L Potassium Level 4.1 MEQ/L Chloride Level 105 MEQ/L Carbon Dioxide Level 30.3 MEQ/L Anion Gap 9 MEQ/L Estimat Glomerular Filtration Rate 74 ML/MIN Triglycerides Level 193 MG/DL Cholesterol Level 133 MG/DL LDL Cholesterol 57 MG/DL HDL Cholesterol 37.0 MG/DL Cholesterol/HDL Ratio 3.59 RATIO Thyroid Stimulating Hormone 3rd Gen 0.777 uIU/ML Imaging Last 72 hours Impressions Chest X-Ray 02/06/18 0726 Signed Impressions: Service Date/Time: Tuesday, February 06, 2018 07:37 - CONCLUSION: Mild interstitial prominence within normal size heart in this patient with history of congestive failure. Correlation suggested Robin Bowers MD FACR Assessment and Plan Problem List: (1) CAD (coronary artery disease) ICD Codes: I25.10 - Atherosclerotic heart disease of [place] coronary artery without angina pectoris Plan: stable and asymptomatic (2) Non-STEMI (non-ST elevated myocardial infarction) ICD Codes: I21.4 - Non-ST elevation (NSTEMI) myocardial infarction Status: Acute Plan: on asa, BB trop trending down -pt agrees / wants cardiac cath on Friday - Cr back in normal range (3) ATRIAL FIBRILLATION Status: Acute Plan: last xarelto yesterday, now on hold -start lovenox tonight (4) Hyperlipidemia ICD Codes: E78.5 - Hyperlipidemia, unspecified Status: Acute (5) Hypertension ICD Codes: I10 - Essential (primary) hypertension (6) SATURNINO (acute kidney injury) ICD Codes: N17.9 - Acute kidney failure, unspecified Status: Acute (7) Diabetes mellitus ICD Codes: E11.9 - Type 2 diabetes mellitus without complications Status: Acute Tanesha Gomez MD Feb 07, 2018 10:16
--- NOTE | 2018-02-07 11:04 | RADRPT ---
EXAM DATE/TIME: 02/07/2018 10:14 [facility] COMPARISON: CHEST PA & LAT, February 06, 2018, 7:37. INDICATIONS : Cough and congestion. MEDICAL HISTORY : Diabetes. SURGICAL HISTORY : Coronary artery stent. ENCOUNTER: Subsequent ACUITY: 2 days PAIN SCORE: 0/10 LOCATION: chest FINDINGS: Minimal peribronchial thickening left base without infiltrate. Right lung clear. The heart and pulmo nary vascularity are normal.. . Osseous structures are intact. CONCLUSION: Minimal parenchymal changes left base Robin Bowers MD FACR on February 07, 2018 at 11:01 Board Certified Radiologist. This report was verified electronically.
[2018-02-07] MEDS: ASPIRIN 81 MG CHEW TAB CHEW SCH (12:18)
--- NOTE | 2018-02-07 12:35 | HHI.FPPN ---
Subjective Remarks Patient without chest pain today. No increasing sob. Eating regularly. No complaints or questions this morning. (Mansoor Gonzales MD, R3) Objective Vitals Vital Signs Date Time Temp Pulse Resp B/P (MAP) Pulse Ox O2 Delivery O2 Flow Rate FiO2 02/07/18 12:23 98.6 72 16 129/73 (91) 97 02/07/18 10:00 90 02/07/18 09:00 100 02/07/18 08:00 90 02/07/18 07:59 98.4 89 17 148/89 (108) 94 02/07/18 07:00 94 02/07/18 06:00 92 02/07/18 05:00 88 02/07/18 04:00 88 02/07/18 03:40 93 16 134/82 (99) 93 02/07/18 03:00 82 02/07/18 02:00 80 02/07/18 01:00 82 02/07/18 00:00 80 02/06/18 23:22 92 21 02/06/18 23:10 75 16 147/71 (96) 93 02/06/18 23:00 75 02/06/18 22:00 70 02/06/18 21:30 77 02/06/18 21:00 98.4 69 16 125/67 (86) 93 02/06/18 20:54 02/06/18 20:45 98 Nasal Cannula 2.00 02/06/18 19:30 Nasal Cannula 2.00 02/06/18 15:30 66 18 115/56 (75) 100 Room Air I/O 02/06/18 02/06/18 02/06/18 02/07/18 02/07/18 02/07/18 07:00 15:00 23:00 07:00 15:00 23:00 Intake Total 120 ml 280 ml Output Total 600 ml Balance -600 ml 120 ml 280 ml Intake Oral 120 ml 280 ml Output Urine Total 600 ml # Voids 1 3 # Bowel Movements 0 (Mansoor Gonzales MD, R3) Result Diagram: 02/07/18 0350 02/07/18 0350 Imaging Last 72 hours Impressions Chest X-Ray 02/07/18 0600 Signed Impressions: Service Date/Time: Wednesday, February 07, 2018 10:14 - CONCLUSION: Minimal parenchymal changes left base Robin Bowers MD FACR Chest X-Ray 02/06/18 0726 Signed Impressions: Service Date/Time: Tuesday, February 06, 2018 07:37 - CONCLUSION: Mild interstitial prominence within normal size heart in this patient with history of congestive failure. Correlation suggested Robin Bowers MD FACR Objective Remarks GENERAL: This is a well-nourished, well-developed, morbidly obese patient, in no apparent distress. SKIN: Warm and dry. HEAD: Atraumatic. Normocephalic. No temporal or scalp tenderness. EYES: Pupils equal round and reactive. Extraocular motions intact. No scleral icterus. No injection or drainage. ENT: Nose without bleeding, purulent drainage or septal hematoma; but nasal cannula in place so exam is limited. Throat without erythema, tonsillar hypertrophy or exudate. Uvula midline. Airway patent. NECK: Trachea midline. No JVD or lymphadenopathy. Supple, nontender, no meningeal signs. CARDIOVASCULAR: Regular rate and rhythm without murmurs, gallops, or rubs. RESPIRATORY: Clear to auscultation. Breath sounds equal bilaterally. No wheezes , rales, or rhonchi. GASTROINTESTINAL: Abdomen soft, non-tender, nondistended. No hepato-splenomegaly , or palpable masses. No guarding. MUSCULOSKELETAL: Extremities without clubbing, cyanosis. Left foot with 2+ edema. No joint tenderness, effusion, or edema noted. No calf tenderness. NEUROLOGICAL: Awake and alert. Cranial nerves II through XII intact. Motor and sensory grossly within normal limits. Five out of 5 muscle strength in all muscle groups. Normal speech. (Mansoor Gonzales MD, R3) A/P Assessment and Plan Patient is a 77 year old male with a past medical history significant of A.fib s /p ablation and electrocardioversion, CAD s/p HI with stent placement, CHF, DM Type II, HTN and hyperlipidemia who presents with chest discomfort and shortness of breath since 4:00 a.m. on day of admission. His troponins increased to 5.57 and an EKG showed ST segment depressions in lateral/ junctional leads. Scheduled for cardiac catheterization with cardiology on Friday02/09/2018. (Mansoor Gonzales MD, R3) Attending Attestation Patient seen, examined, and discussed with resident team. I agree with assessment and management as documented and discussed with me. Pt without chest pain or SOB. Anticipate cath on friday (Florinda Elliott MD) Problem List: (1) Non-STEMI (non-ST elevated myocardial infarction) ICD Codes: I21.4 - Non-ST elevation (NSTEMI) myocardial infarction Status: Acute Plan: EKG with lateral lead (V4, V5) ST depression. Repeat EKG without evidence of ST elevation or depression. Troponin DOWNTRENDIN.32 -> 5.57 --> 4.59 --> 3.22. CK-MB DOWNTRENDIN.5 -> 17.6 --> 15.9. Despite significant increase in cardiac enzymes, patient denies chest pain and associated symptoms. Per cardiology: hold Xarelto and start Lovenox on 02/07/2018 (90 mg Sub q q 12 hours) to allow for cardiac cath on Friday. (2) CAD (coronary artery disease) ICD Codes: I25.10 - Atherosclerotic heart disease of [place] coronary artery without angina pectoris Plan: Patient with history of CAD and HI in 2011 s/p stent placement. * See Plan for Non-STEMI. (3) History of atrial fibrillation ICD Codes: Z86.79 - Personal history of other diseases of the circulatory system Status: Acute Plan: Patient with history of A.fib s/p ablations x3 and electrocardioversion. * Continue home meds. (4) CHF (congestive heart failure) ICD Codes: I50.9 - Heart failure, unspecified Plan: Patient with history of CHF. BNP on admission 31. ECHO CONCLUSIONS 02/06: * Normal left ventricular size and wall thickness. * The left ventricular systolic function is normal with an estimated ejection fraction in the range of 60-65%. * No definite wall motion abnormalities. * Moderate mitral annular calcification. * Diffuse mild calcification of the aortic valve. (5) Hypertension ICD Codes: I10 - Essential (primary) hypertension Plan: Patient with history of hypertension. * Continue home meds. (6) SATURNINO (acute kidney injury) ICD Codes: N17.9 - Acute kidney failure, unspecified Status: Acute Plan: Resolved, Cr 0.98. (7) Diabetes mellitus ICD Codes: E11.9 - Type 2 diabetes mellitus without complications Status: Acute Plan: Patient with history of pre-diabetes, per patient. Patient with history of diabetes, per chart. On admission, random glucose 123. * Hemoglobin A1C pending. * Held home meds. * Low NovoLOG Scale. (8) Hyperlipidemia ICD Codes: E78.5 - Hyperlipidemia, unspecified Status: Acute Plan: Patient with history of hyperlipidemia. * Continue home meds. (9) Fluid, Nutrition, Electrolyte, and Prophylaxis Status: Acute Plan: Fluid: * IV fluid not indicated at this time. Nutrition: * Diet NPO except Meds. * Diet Progression: NPO except meds for 4 hours, then advance to full liquid diet as tolerated, 4 gm sodium, 40gm fat. No caffeine. Electrolyte: * Monitor and replete as necessary. Prophylaxis: * SCDs. * Lovenox as above. SDW Dr. Elliott and Dr. Mcgowan. (Mansoor Gonzales MD, R3) Mansoor Gonzales MD, R3 Feb 07, 2018 12:35 Florinda Elliott MD Feb 07, 2018 20:43
--- NOTE | 2018-02-07 13:08 | EKG ---
Date Performed: 02/06/2018 Time Performed: 07:12:13 PTAGE: 77 years EKG: NORMAL Sinus rhythm T-wave amplitude increased significantly from prior tracing. Consider possible hyperkaliemia or isch emia. Mildly prolonged QT interval MODERATE ST DEPRESSION ABNORMAL ECG PREVIOUS TRACING : 02/05/2014 07.16 DOCTOR: Eusebio Stewart Interpretating Date/Time 02/07/2018 13:13:50
--- NOTE | 2018-02-07 17:01 | EKG ---
Date Performed: 02/07/2018 Time Performed: 04:03:20 PTAGE: 77 years EKG: Sinus rhythm Lead(s) unsuitable for analysis: V5 ST junctional depression is nonspecific Since the previous shelia ng, no significant change noted Borderline ECG PREVIOUS TRACING : 02/06/2018 18.14 DOCTOR: Tanesha Gomez Interpretating Date/Time 02/07/2018 16:59:45
--- NOTE | 2018-02-07 17:01 | EKG ---
Date Performed: 02/06/2018 Time Performed: 18:14:41 PTAGE: 77 years EKG: Sinus rhythm MINIMAL VOLTAGE CRITERIA FOR LVH, CONSIDER NORMAL VARIANT PROLONGED QT INTERVAL ABNORMAL ECG Since t he PREVIOUS TRACING , no significant change noted PREVIOUS TRACIN02/06/2018 12.51 DOCTOR: Tanesha Gomez Interpretating Date/Time 02/07/2018 16:59:31
[2018-02-07] MEDS: ENOXAPARIN SODIUM 100 MG/ML SYRINGE SQ SCH (21:25)
[2018-02-07] MEDS: ATORVASTATIN 40 MG TAB PO SCH (21:28)
[2018-02-08] VITALS (30 sets, daily range): BP systolic 113–145; BP diastolic 67–90; PULSE 58–96; RESP 16–18; TEMP 98.1–98.5; O2SAT 93–97
[2018-02-08 07:21] LABS: HEMATOCRIT 40.8 % (39.0-51.0); HEMOGLOBIN 13.8 GM/DL (13.0-17.0); MEAN CELL VOLUME 92.9 FL (80.0-100.0); MEAN CORPUSCULAR HEMOGLOBIN 31.4 PG (27.0-34.0); MEAN CORPUSCULAR HGB CONC 33.8 % (32.0-36.0); MEAN PLATELET VOLUME 8.2 FL (7.0-11.0); PLATELET COUNT 135 TH/MM3 (150-450); RED BLOOD COUNT 4.39 MIL/MM3 (4.50-5.90); RED CELL DISTRIBUTION WIDTH 14.2 % (11.6-17.2); WHITE BLOOD COUNT 7.7 TH/MM3 (4.0-11.0)
[2018-02-08 07:44] LABS: ALBUMIN 3.1 GM/DL (3.4-5.0); ALT (GPT) 23 U/L (12-78); AST (GOT) 23 U/L (15-37); BICARBONATE 28.3 MEQ/L (21.0-32.0); BLOOD UREA NITROGEN 16 MG/DL (7-18); CALCIUM 8.5 MG/DL (8.5-10.1); CHLORIDE 107 MEQ/L (98-107); GLOMERULAR FILTRATION RATE 81 ML/MIN (>89); GLUCOSE,RANDOM 94 MG/DL (74-106); SODIUM (NA) 144 MEQ/L (136-145)
[2018-02-08 07:46] LABS: ALKALINE PHOSPHATASE 76 U/L (45-117); TOTAL PROTEIN 6.5 GM/DL (6.4-8.2)
[2018-02-08] MEDS: INSULIN ASPART SUPPLEMENTAL SCALE SQ SCH ×4 (08:00→21:00)
[2018-02-08] MEDS: POTASSIUM CHLORIDE 10 MEQ CONTROLLED RELEASE TAB PO SCH (09:07)
[2018-02-08] MEDS: DOCUSATE SODIUM 50 MG/SENNA 8.6 MG TAB PO SCH ×2 (09:07→21:00)
[2018-02-08] MEDS: ASPIRIN 81 MG CHEW TAB CHEW SCH (09:07)
[2018-02-08] MEDS: METOPROLOL TARTRATE 100 MG TAB PO SCH ×3 (09:07→18:30)
[2018-02-08] MEDS: DOFETILIDE 250 MCG CAP PO SCH ×2 (09:07→21:28)
[2018-02-08] MEDS: ENOXAPARIN SODIUM 100 MG/ML SYRINGE SQ SCH ×2 (09:07→21:29)
[2018-02-08] MEDS: FUROSEMIDE 20 MG TAB PO SCH (09:07)
[2018-02-08] MEDS: SODIUM CHLORIDE 0.9% FLUSH 10 ML FLUSH IV FLUSH SCH ×2 (09:08→21:29)
[2018-02-08] MEDS ORDERED: MIDAZOLAM HCL 2 MG/2 ML VIAL IV PUSH SCH (11:15)
--- NOTE | 2018-02-08 11:16 | MB ---
cc: Doni Vizcaino MD DATE: 02/08/2018 REASON FOR CONSULTATION: Cardiac catheterization. HISTORY OF PRESENT ILLNESS: The patient is a 77-year-old white male, followed in our office by Dr. Diann Franz and Dr. Tanesha Gomez, with a history of hyperlipidemia, hypertension, diabetes, coronary artery disease, paroxysmal atrial arrhythmias who was in his usual state of health up until 3 days ago when at about 4:00 a.m., he developed a substernal chest discomfort described as "indigestion" associated with slight shortness of breath without nausea or diaphoresis. He believes the episode lasted about 45 minutes. He has had no further chest discomfort here in the hospital. He also denies pleurisy, dizziness, syncope, near-syncope, palpitations, change in chronic pedal edema, paroxysmal nocturnal dyspnea. Cardiac enzymes were checked here in the hospital and found to be abnormal. The patient reports compliance with his medications. PAST MEDICAL HISTORY: 1. Hyperlipidemia. 2. Hypertension. 3. Diabetes. 4. Paroxysmal atrial flutter, status post ablation 07/14/2012. 5. Coronary artery disease, status post stent of the mid LAD 11/08/2011. It is unclear from the report what type of stent was placed or the size of the stent. 6. Paroxysmal atrial fibrillation, status post ablation 02/03/2014. CARDIAC MEDICATIONS AT HOME: 1. Furosemide 20 mg daily. 2. Metoprolol tartrate 100 mg t.i.d. 3. Tikosyn 500 mg b.i.d. 4. Atorvastatin 40 mg at bedtime. 5. Xarelto 20 mg daily. 6. Klor-Con 10 mEq daily. ALLERGIES: PENICILLIN. FAMILY HISTORY: There is no significant family history of early myocardial infarction. His father did pass away from myocardial infarction at age 81. SOCIAL HISTORY: The patient quit smoking at age 38. He denies alcohol abuse. REVIEW OF SYSTEMS: As in the history of present illness, otherwise negative or noncontributory. He also denies headache, visual changes, abdominal pain, melena, dyspepsia, bright red blood per rectum. PHYSICAL EXAMINATION: VITAL SIGNS: Blood pressure 113/67 with pulse of 75, respirations 18. GENERAL: He is a well-developed, well-nourished white male, in no acute distress. NECK: Jugular venous pressure is hard to assess. It appears to be normal. Carotid pulses are 2+ bilaterally without bruits. CHEST: Reveals clear lung blue. CARDIAC: He has a regular rhythm and rate with a grade 2/6 systolic ejection murmur heard throughout the precordium. The S2 heart sound is normal. No gallop is audible. ABDOMEN: He has a soft, obese, nontender abdomen. Bowel sounds are present. There is no definite hepatosplenomegaly. EXTREMITIES: Reveal no clubbing or cyanosis. There is trace pretibial edema bilaterally. LABORATORY DATA: EKG shows normal sinus rhythm, normal EKG. Laboratory data includes troponin 5.57, BUN 16, creatinine 0.9. Total cholesterol 133, LDL 57, HDL 37, triglycerides 193. Normal CBC. Chest x-ray from 02/06/2018 shows mildly increased interstitial markings. IMPRESSION: Non-ST elevation myocardial infarction in this 77-year-old white male with a history of hypertension, diabetes, hyperlipidemia, paroxysmal atrial flutter and paroxysmal atrial fibrillation, status post ablations, history of stent of the mid left anterior descending 6 years ago. I have been asked to see the patient for possible cardiac catheterization. In light of his abnormal cardiac enzymes and the instability of his symptoms, I would agree with the recommendation for cardiac catheterization. The nature of this procedure was outlined with the patient in detail. The risks including, but not limited to , myocardial infarction, stroke, arrhythmia, bleeding, infection, and renal failure have also been delineated. He agrees to proceed. RECOMMENDATIONS: 1. Continue to hold his Xarelto 2. Cardiac catheterization tomorrow. Doni Vizcaino MD [facility]/TI , 10:42 AM , 11:15 AM [facility]
[2018-02-08] MEDS: SODIUM CHLOR 0.9% 1000 ML INJ 1,000 ML IV SCH ×2 (11:43→21:36)
[2018-02-08 13:46] LABS: HEMOGLOBIN A1C 5.8 % (4.3-6.0)
--- NOTE | 2018-02-08 13:56 | HHI.FPPN ---
Subjective Remarks Patient seen and examined bedside this morning. Patient denies any recurrent chest pain since the admission. He denies any shortness of breath. There have been no acute events overnight. He has had no dizziness and has been walking without difficulty. (Cesilia Ortiz MD R2) Objective Vitals Vital Signs Date Time Temp Pulse Resp B/P (MAP) Pulse Ox O2 Delivery O2 Flow Rate FiO2 02/08/18 12:00 64 02/08/18 11:18 98.2 72 17 124/68 (86) 97 02/08/18 11:00 64 02/08/18 10:00 96 02/08/18 09:00 88 02/08/18 08:00 64 02/08/18 07:42 98.1 75 18 113/67 (82) 97 02/08/18 07:00 94 02/08/18 06:00 64 02/08/18 05:00 62 02/08/18 04:27 72 16 129/76 (93) 97 02/08/18 04:00 64 02/08/18 03:00 63 02/08/18 02:00 62 02/08/18 01:00 68 02/08/18 00:00 64 02/07/18 23:20 98.6 72 16 153/80 (104) 96 02/07/18 23:00 62 02/07/18 22:00 74 02/07/18 21:04 21 02/07/18 21:00 76 02/07/18 20:00 70 02/07/18 20:00 97.4 70 16 145/93 (110) 96 02/07/18 19:00 71 02/07/18 18:15 68 02/07/18 17:22 78 02/07/18 16:00 86 02/07/18 15:34 98.2 74 17 132/75 (94) 94 02/07/18 15:00 70 02/07/18 14:00 70 I/O 02/07/18 02/07/18 02/07/18 02/08/18 02/08/18 02/08/18 07:00 15:00 23:00 07:00 15:00 23:00 Intake Total 280 ml 720 ml 800 ml Output Total 2400 ml 3200 ml Balance 280 ml -1680 ml -2400 ml Intake Oral 280 ml 720 ml 800 ml Output Urine Total 2400 ml 3200 ml # Voids 3 # Bowel Movements 0 1 0 (Cesilia Ortiz MD R2) Result Diagram: 02/08/1853402/08/18534 Objective Remarks GENERAL: This is a well-nourished, well-developed, morbidly obese patient, in no apparent distress. SKIN: Warm and dry. HEAD: Atraumatic. Normocephalic. No temporal or scalp tenderness. EYES: Pupils equal round and reactive. Extraocular motions intact. No scleral icterus. No injection or drainage. ENT: Nose without bleeding, purulent drainage or septal hematoma; but nasal cannula in place so exam is limited. Throat without erythema, tonsillar hypertrophy or exudate. Uvula midline. Airway patent. NECK: Trachea midline. No JVD or lymphadenopathy. Supple, nontender, no meningeal signs. CARDIOVASCULAR: Regular rate and rhythm . 2 out of 6 systolic ejection murmur. No gallops or rubs RESPIRATORY: Clear to auscultation. Breath sounds equal bilaterally. No wheezes , rales, or rhonchi. GASTROINTESTINAL: Abdomen soft, non-tender, nondistended. No hepato-splenomegaly , or palpable masses. No guarding. MUSCULOSKELETAL: Extremities without clubbing, cyanosis. No joint tenderness, effusion, or edema noted. No calf tenderness. NEUROLOGICAL: Awake and alert. Cranial nerves II through XII intact. Motor and sensory grossly within normal limits. Five out of 5 muscle strength in all muscle groups. Normal speech. (Cesilia Ortiz MD R2) A/P Assessment and Plan Patient is a 77 year old male with a past medical history significant of A.fib s /p ablation and electrocardioversion and current anticoagulation, CAD s/p [place] with stent placement, CHF, DM Type II, HTN and hyperlipidemia who presents with chest discomfort and shortness of breath since 4:00 a.m. on day of admission. His troponins increased to 5.57 and an EKG showed ST segment depressions in lateral/junctional leads. Scheduled for cardiac catheterization with cardiology on Friday02/09/2018. Discharge Planning Pending catheterization tomorrow and cardiac clearance for discharge (Cesilia Ortiz MD R2) Attending Attestation Patient seen and examined, discussed with resident team. I agree with assessment and management as documented and discussed with me. Pt denies chest pain or pressure, denies SOB. Await cath tomorrow. (Florinda Elliott MD) Problem List: (1) Non-STEMI (non-ST elevated myocardial infarction) ICD Codes: I21.4 - Non-ST elevation (NSTEMI) myocardial infarction Status: Acute Plan: EKG with lateral lead (V4, V5) ST depression. Repeat EKG without evidence of ST elevation or depression. Troponin DOWNTRENDIN.32 -> 5.57 --> 4.59 --> 3.22. CK-MB DOWNTRENDIN.5 -> 17.6 --> 15.9. Despite significant increase in cardiac enzymes, patient denies chest pain and associated symptoms. Per cardiology: hold Xarelto and start Lovenox on 02/07/2018 (90 mg Sub q q 12 hours) to allow for cardiac cath on Friday. (2) CAD (coronary artery disease) ICD Codes: I25.10 - Atherosclerotic heart disease of [place] coronary artery without angina pectoris Plan: Patient with history of CAD and [place] in 2012 s/p stent placement. * See Plan for Non-STEMI. (3) History of atrial fibrillation ICD Codes: Z86.79 - Personal history of other diseases of the circulatory system Status: Acute Plan: Patient with history of A.fib s/p ablations x3 and electrocardioversion. * Continue home meds. (4) CHF (congestive heart failure) ICD Codes: I50.9 - Heart failure, unspecified Plan: Patient with history of CHF. BNP on admission 31. ECHO CONCLUSIONS 02/06: * Normal left ventricular size and wall thickness. * The left ventricular systolic function is normal with an estimated ejection fraction in the range of 60-65%. * No definite wall motion abnormalities. * Moderate mitral annular calcification. * Diffuse mild calcification of the aortic valve. (5) Hypertension ICD Codes: I10 - Essential (primary) hypertension Plan: Patient with history of hypertension. * Continue home meds. (6) SATURNINO (acute kidney injury) ICD Codes: N17.9 - Acute kidney failure, unspecified Status: Resolved Plan: 1.42 on admission Resolved (7) Diabetes mellitus ICD Codes: E11.9 - Type 2 diabetes mellitus without complications Status: Acute Plan: Patient with history of pre-diabetes, per patient. Patient with history of diabetes, per chart. On admission, random glucose 123. * Hemoglobin A1C 5.8 * Held home meds. * Low NovoLOG Scale. (8) Hyperlipidemia ICD Codes: E78.5 - Hyperlipidemia, unspecified Status: Acute Plan: Patient with history of hyperlipidemia. * Continue home meds. (9) Fluid, Nutrition, Electrolyte, and Prophylaxis Status: Acute Plan: Fluid: * IV fluid not indicated at this time. Nutrition: * Diet NPO at midnight. Electrolyte: * Monitor and replete as necessary. Prophylaxis: * SCDs. * Lovenox as above. (Cesilia Ortiz MD R2) Cesilia Ortiz MD R2 Feb 08, 2018 13:56 Florinda Elliott MD Feb 10, 2018 06:40
[2018-02-08] MEDS: ATORVASTATIN 40 MG TAB PO SCH (21:28)
[2018-02-09] VITALS (23 sets, daily range): BP systolic 137–162; BP diastolic 62–90; PULSE 61–100; RESP 16–18; TEMP 97.8–98.8; O2SAT 93–96
[2018-02-09] MEDS: MORPHINE SULFATE 4 MG/ML INJ IV PUSH PRN ×2 (04:35→16:50)
[2018-02-09 06:21] LABS: AUTOMATED NEUTROPHIL # 4.5 TH/MM3 (1.8-7.7); BASOPHIL # 0.1 TH/MM3 (0-0.2); BASOPHIL % 0.7 % (0.0-2.0); EOSINOPHIL # 0.4 TH/MM3 (0-0.4); HEMATOCRIT 41.6 % (39.0-51.0); HEMOGLOBIN 13.9 GM/DL (13.0-17.0); LYMPH % 33.2 % (9.0-44.0); MEAN CELL VOLUME 93.2 FL (80.0-100.0); MEAN CORPUSCULAR HEMOGLOBIN 31.1 PG (27.0-34.0); MEAN CORPUSCULAR HGB CONC 33.4 % (32.0-36.0); MEAN PLATELET VOLUME 8.4 FL (7.0-11.0); MONO % 12.3 % (0.0-8.0); MONOCYTE # 1.1 TH/MM3 (0-0.9); NEUT % 49.8 % (16.0-70.0); PLATELET COUNT 138 TH/MM3 (150-450); RED BLOOD COUNT 4.46 MIL/MM3 (4.50-5.90); RED CELL DISTRIBUTION WIDTH 14.2 % (11.6-17.2); WHITE BLOOD COUNT 9.1 TH/MM3 (4.0-11.0)
[2018-02-09] MEDS: SODIUM CHLOR 0.9% 1000 ML INJ 1,000 ML IV SCH ×2 (06:30→17:04)
[2018-02-09 06:46] LABS: BICARBONATE 32.1 MEQ/L (21.0-32.0); CALCIUM 8.4 MG/DL (8.5-10.1); CREATININE 0.95 MG/DL (0.60-1.30)
[2018-02-09] MEDS: INSULIN ASPART SUPPLEMENTAL SCALE SQ SCH ×4 (08:00→21:00)
[2018-02-09] MEDS: SODIUM CHLORIDE 0.9% FLUSH 10 ML FLUSH IV FLUSH SCH ×2 (09:00→21:27)
[2018-02-09] MEDS: DOCUSATE SODIUM 50 MG/SENNA 8.6 MG TAB PO SCH ×2 (09:00→21:00)
[2018-02-09] MEDS: FUROSEMIDE 20 MG TAB PO SCH (09:32)
[2018-02-09] MEDS: ASPIRIN 81 MG CHEW TAB CHEW SCH (09:33)
[2018-02-09] MEDS: METOPROLOL TARTRATE 100 MG TAB PO SCH ×3 (09:33→18:32)
[2018-02-09] MEDS: POTASSIUM CHLORIDE 10 MEQ CONTROLLED RELEASE TAB PO SCH (09:33)
[2018-02-09] MEDS: DOFETILIDE 250 MCG CAP PO SCH ×2 (09:36→21:27)
--- NOTE | 2018-02-09 10:11 | HHI.FPPN ---
Subjective Remarks Patient was seen and evaluated this morning. Cardiac catheterization is scheduled for today at 1:30 p.m. He reports low back pain, relieved with morphine overnight. He denies shortness of breath but has nasal cannula in place at 1.5L oxygen. He denies chest discomfort/pain, nausea, vomiting, diarrhea and constipation. All questions were answered. (Fannie Calvillo MD R1) Objective Vitals Vital Signs Date Time Temp Pulse Resp B/P (MAP) Pulse Ox O2 Delivery O2 Flow Rate FiO2 02/09/18 06:00 68 02/09/18 05:00 64 02/09/18 04:20 79 16 159/79 (105) 94 02/09/18 04:00 68 02/09/18 03:00 67 02/09/18 02:00 64 02/09/18 01:00 80 02/09/18 00:00 88 02/08/18 23:50 87 16 145/90 (108) 97 02/08/18 23:00 69 02/08/18 22:00 68 02/08/18 21:00 66 02/08/18 20:15 98.2 66 16 141/86 (104) 93 02/08/18 20:00 64 02/08/18 19:00 77 02/08/18 18:00 66 02/08/18 17:00 58 02/08/18 16:00 62 02/08/18 15:14 98.5 62 18 129/78 (95) 96 02/08/18 15:00 65 02/08/18 14:00 76 02/08/18 13:00 66 02/08/18 12:00 64 02/08/18 11:18 98.2 72 17 124/68 (86) 97 02/08/18 11:00 64 02/08/18 10:00 96 I/O 02/08/18 02/08/18 02/08/18 02/09/18 02/09/18 02/09/18 07:00 15:00 23:00 07:00 15:00 23:00 Intake Total 800 ml 720 ml 240 ml Output Total 3200 ml 2170 ml 1200 ml Balance -2400 ml -1450 ml -960 ml Intake Oral 800 ml 720 ml 240 ml Output Urine Total 3200 ml 2170 ml 1200 ml # Bowel Movements 0 0 (Fannie Calvillo MD R1) Result Diagram: 02/09/18 0539 02/09/18 0539 Imaging Last 72 hours Impressions Chest X-Ray 02/07/18 0600 Signed Impressions: Service Date/Time: Wednesday, February 07, 2018 10:14 - CONCLUSION: Minimal parenchymal changes left base Robin Bowers MD FACR Objective Remarks GENERAL: This is a well-nourished, well-developed, morbidly obese patient, in no apparent distress. SKIN: Warm and dry. HEAD: Atraumatic. Normocephalic. EYES: Pupils equal round. Extraocular motions intact. No scleral icterus. No injection or drainage. ENT: Nose without bleeding, purulent drainage or septal hematoma; but nasal cannula in place so exam is limited. Airway patent. NECK: Supple, nontender, no meningeal signs. CARDIOVASCULAR: Regular rate. 2 out of 6 systolic ejection murmur. No gallops or rubs. RESPIRATORY: Clear to auscultation anteriorly. Breath sounds equal bilaterally. No wheezes, rales, or rhonchi. GASTROINTESTINAL: Positive bowel sounds. Abdomen soft, non-tender, nondistended. MUSCULOSKELETAL: Extremities without clubbing, cyanosis. No joint tenderness, effusion, or edema noted. No calf tenderness. NEUROLOGICAL: Awake and alert. Cranial nerves II through XII intact. Motor and sensory grossly within normal limits. Normal speech. Procedures Cardiac catheterization 02/09. Medications and IVs Current Medications Medications (Trade) Dose Ordered Sig/Marilyn Route Start Time Stop Time Status Last Admin (Lipitor) 40 mg HS PO 02/06/18 21:00 02/08/18 21:28 (Lasix) 20 mg DAILY PO 02/06/18 11:30 02/09/18 09:32 (Lopressor) 100 mg TID PO 02/06/18 13:00 02/09/18 09:33 (KCl) 10 meq DAILY PO 02/06/18 11:30 02/09/18 09:33 (Xarelto) 20 mg DAILY PO 02/06/18 12:00 Future Hold 02/06/18 11:57 (NS Flush) 2 ml BID IV FLUSH 02/06/18 21:00 02/09/18 09:00 (NS Flush) 2 ml UNSCH PRN IV FLUSH 02/06/18 11:15 (Nitroglycerin 2% Oint) 0.5 inch Q6HR PRN TOP 02/06/18 11:15 (Morphine Inj) 2 mg Q1HR PRN IV PUSH 02/06/18 11:15 02/09/18 04:35 (Narcan Inj) 0.4 mg UNSCH PRN IV PUSH 02/06/18 11:15 (Loraine-Colace) 1 tab BID PO 02/06/18 21:00 02/08/18 09:07 (Milk Of Magnesia Liq) 30 ml Q12H PRN PO 02/06/18 11:15 02/07/18 08:49 (Senokot) 17.2 mg Q12H PRN PO 02/06/18 11:15 (Dulcolax Supp) 10 mg DAILY PRN RECTAL 02/06/18 11:15 (Lactulose Liq) 30 ml DAILY PRN PO 02/06/18 11:15 (NovoLOG SUPPLEMENTAL SCALE) 1 ACHS SLIDING SCALE SQ 02/06/18 12:00 02/08/18 12:05 (Tikosyn) 500 mcg BID PO 02/06/18 12:00 02/09/18 09:36 (D50w (Vial) Inj) 50 ml UNSCH PRN IV PUSH 02/06/18 12:00 (Glucagon Inj) 1 mg UNSCH PRN OTHER 02/06/18 12:00 (Aspirin Chew) 81 mg DAILY CHEW 02/07/18 10:30 02/09/18 09:33 Sodium Chloride 1,000 ml @ 100 mls/hr Q10H IV 02/08/18 11:04 02/13/18 11:03 02/09/18 06:30 (Benadryl) 50 mg [employer] PO 02/08/18 11:15 02/12/18 11:14 (Valium) 10 mg [employer]PA[employer]ER PO 02/08/18 11:15 02/12/18 11:14 (Versed Inj) 1 mg [employer]PA[employer] IV PUSH 02/08/18 11:15 02/12/18 11:14 (Fannie Calvillo MD R1) Urinary Catheter: No (Fannie Calvillo MD R1) Vascular Central Line Catheter: No (Fannie Calvillo MD R1) A/P Assessment and Plan Patient is a 77 year old male with a past medical history significant of A.fib s /p ablation and electrocardioversion and current anticoagulation, CAD s/p [place] with stent placement, CHF, DM Type II, HTN and hyperlipidemia who presents with chest discomfort and shortness of breath for approximately two hours on the day of admission. Troponin increased to 5.57 and an EKG showed ST segment depressions in lateral/junctional leads. Scheduled for cardiac catheterization with cardiology on Friday02/09/2018. Discharge Planning Pending catheterization and cardiac clearance for discharge. (Fannie Calvillo MD R1) Attending Attestation Patient seen and examined, discussed with resident team. I agree with assessment and management as documented and discussed with me. Pt reports sore lower back from hospital bed this morning; relieve with pain medication. To cath today. Await results; appreciate cardiology. (Florinda Elliott MD) Problem List: (1) Non-STEMI (non-ST elevated myocardial infarction) ICD Codes: I21.4 - Non-ST elevation (NSTEMI) myocardial infarction Status: Acute Plan: EKG with lateral lead (V4, V5) ST depression. Repeat EKG without evidence of ST elevation or depression. Troponin DOWNTRENDIN.32 -> 5.57 --> 4.59 --> 3.22. CK-MB DOWNTRENDIN.5 -> 17.6 --> 15.9. Despite significant increase in cardiac enzymes, patient denies chest pain and associated symptoms. Per cardiology: * Xarelto held 02/06. * Started Lovenox on 02/07 (90 mg SQ q12hr) to allow for cardiac catheterization on 02/09. * Lovenox discontinued on 02/08 in preparation of cardiac catheterization on . (2) CAD (coronary artery disease) ICD Codes: I25.10 - Atherosclerotic heart disease of [place] coronary artery without angina pectoris Plan: Patient with history of CAD and [place] in 2012 s/p stent placement. * See Plan for Non-STEMI. (3) History of atrial fibrillation ICD Codes: Z86.79 - Personal history of other diseases of the circulatory system Status: Acute Plan: Patient with history of A.fib s/p ablations x3 and electrocardioversion. * Continue home meds. (4) CHF (congestive heart failure) ICD Codes: I50.9 - Heart failure, unspecified Plan: Patient with history of CHF. BNP on admission 31. ECHO CONCLUSIONS 02/06: * Normal left ventricular size and wall thickness. * The left ventricular systolic function is normal with an estimated ejection fraction in the range of 60-65%. * No definite wall motion abnormalities. * Moderate mitral annular calcification. * Diffuse mild calcification of the aortic valve. (5) Hypertension ICD Codes: I10 - Essential (primary) hypertension Plan: Patient with history of hypertension. * Continue home meds. (6) SATURNINO (acute kidney injury) ICD Codes: N17.9 - Acute kidney failure, unspecified Status: Resolved Plan: Resolved. 1.42 on admission. (7) Diabetes mellitus ICD Codes: E11.9 - Type 2 diabetes mellitus without complications Status: Acute Plan: Patient with history of pre-diabetes, per patient. Patient with history of diabetes, per chart. On admission, random glucose 123. * Hemoglobin A1C 5.8 * Held home meds. * Low NovoLOG Scale. (8) Hyperlipidemia ICD Codes: E78.5 - Hyperlipidemia, unspecified Status: Acute Plan: Patient with history of hyperlipidemia. * Continue home meds. (9) Fluid, Nutrition, Electrolyte, and Prophylaxis Status: Acute Plan: Fluid: * NS 100 ml/hr while NPO. Nutrition: * Diet NPO except meds at midnight. Electrolyte: * Monitor and replete as necessary. Prophylaxis: * SCDs. * Lovenox as above. (Fannie Calvillo MD R1) Fannie Calvillo MD R1 Feb 09, 2018 10:11 Florinda Elliott MD Feb 10, 2018 06:43
[2018-02-09] MEDS: DIAZEPAM 10 MG TAB PO SCH ×2 (11:43→14:03)
[2018-02-09] MEDS: diphenhydrAMINE HCL 50 MG CAP PO SCH ×2 (11:43→14:03)
[2018-02-09] MEDS ORDERED: HEPARIN-NS/PF FLUSH BAG 2,000 ML IV FLUSH ONE (14:23)
[2018-02-09] MEDS ORDERED: VERAPAMIL HCL 5 MG/2 ML VIAL ONE (14:24)
[2018-02-09] MEDS ORDERED: MIDAZOLAM HCL 2 MG/2 ML VIAL ONE (14:24)
[2018-02-09] MEDS ORDERED: HEPARIN SODIUM - IV 10,000 UNITS/10 ML VIAL ONE (14:24)
[2018-02-09] MEDS ORDERED: NITROGLYCERIN INJ 5 ML ONE (14:24)
[2018-02-09] MEDS ORDERED: LIDOCAINE HCL 1% PF 30 ML VIAL ONE (14:45)
--- NOTE | 2018-02-09 15:58 | CATHPROC ---
[employer] HIS Report Study Information Study Number Admission Scheduled Start Study Start [id number] Feb 06 2018 10:08AM 02/08/2018 Feb 09 2018 2:15PM [place] Service Cardiac Catheterization Admit Source Facility Department Other [facility] - Trade Facilitator Physician and Clinical Staff Initial Doni Cortez Internal Revenue Service Agent Terra Sahu,ROSARIO Other cathlab, cathlab Recorder Myra Hernandez,SUPERVISOR HOME ECONOMICS TECH2 Scrub John Donaldson,RT(R) Procedures Performed Procedure Location (Site) Vessel Name Angiogram LV LV Ventricle Coronary Angiograms LCA Left Coronary Coronary Angiograms RCA Right Coronary L Heart Cath Wire insertion Fem Art (right) Femoral Art Wire insertion Radial (right) Radial Art. Equipment Time Seat Coverer Description Size Mfg Part Number Used/Scraped TRANSDUCER, TRUWAVE [id number] 14:16 MENENDEZ CHAN * Used W/STOCKCOCK *[id number] 15:42 MailWriter MEDICAL VASCADE, FR6 CLOSURE SYSTEM FR 6\\7 Used *[id number] SDN-21-2.5 14:39 [employer]ighter INC. NEEDLE, PERCUTANEOUS ENTRY 21G X 2.5CM Used *[id number] [id number] *[id number] 534-648T *2918741 534-620T *[id number] *[id number] 534-623T *[id number] MPA-2 INFINITI 125CM 534-544T CATHETER *[id number] 534-650S *[id number] 473790 14:16 MALLINCKRODT SYRINGE, ANGIOMAT 150ML 150ML *[id number] Used [address] [place] [address] CONCEPT DRAPE, RADIAL FEMORAL FULL 14:16 * [id number] *[id number] Used DEVELOPMENT BODY [id number] 14:16 [employer] IND[employer]ES PACK, CCL CUSTOM * Used *[id number] 14:16 Fashion Movement SUPPORT, ARTERIAL ADULT 68540 *[id number] Used [id number] 14:16 MEDLINE PACER PEN, SKIN DUAL W/ RULER * Used *[id number] BAND, RADIAL COMPRESSION TR [id number] 15:41 FaceOn Mobile 29CM Used LARGE 29 *[id number] SHEATH, FR6 RADIAL PRELUDE 14:16 FaceOn Mobile FR 6 [id number] Used EASE 11CM PSI-6F-11- 15:18 [employer] Mobile SHEATH, FR6.5 PRELUDE 11CM FR 6.5 038ACT Used *[id number] 14:16 [employer] MEDICAL WIRE, EXCHANGE 260CM 3MMJ 260CM Used *8318814 [id number] 14:16 NAMIC MANIFOLD, 4 PORT * Used *9905192 [id number] 15:36 NAMIC TUBING, HIGH PRESSURE 48" 48" Used *[id number] 15:40 NYCOMED OMNIPAQUE, 300 MG, 50ML 50ML [id number] Used 14:16 NYCOMED OMNIPAQUE, 350 MG, 150ML 150ML [id number] Used [id number] 14:16 [facility] BLANKET,WARM AIR CCL * Used *[id number] CATHETER, FR5 OPTITORQUE [id number] 14:53 TERFetchnotes MEDICAL FR 5 Used RADIAL TIG 4.0 *[id number] Equipment Model, Serial, Lot Number and Expiration Data Description Model Number Serial Number Lot Number Expiration Date BAND, RADIAL COMPRESSION TR [id number] 11-26-2020 LARGE 29 SHEATH, FR6.5 PRELUDE 11CM [id number] 10-26-2020 History: Current Medications Medication Dosage/Unit Route Frequency Last Date/Time Taken Statins (any) Glypizide XARELTO History: Allergies Allergy Reaction penicillin G RASH History: Risk Factors Family History of Hypertension Dyslipidemia Previous IL Previous Heart Failure Premature CAD Yes Yes Yes Yes Yes Prior PCI Prior PCIDate Prior CABG Yes 11/08/2011 No Cerebrovascular Peripheral Artery Chronic Lung On Dialysis Diabetes Diabetes Therapy Disease Disease Disease No No No No Yes Oral History: Arrhythmias Selection Items Atrial fibrillation History: Other Disease Selection Items CAD CHF HTN Previous RF Ablation History: Other Current Smoker Method Quit Packs a Day Years Used Pack Years No Cigarettes 39 Years Ago 1 20 20 Labs Hgb (g/dl) Hct (%) WBC (l/cumm) Platelets (thousands) 11.60-17.00 35.00-51.00 4.00-11.00 150.00-450.00 13.9 41.6 9.1 138 Glucose (mg/dl) BUN (mg/dl) Creatinine (mg/dl) BUN:Creatinine (1:x) 74.00-106.00 7.00-18.00 0.50-1.30 10.00-20.00 105 13 0.9 14.4 Na (meq/l) K (meq/l) 136.00-145.00 3.50-5.10 143 4.1 INR (PTT:PT) 0.90-1.10 1.2 Medication Medication Total Dose (Bolus/Oral) Medication Total Dosage/Unit 1% XYLOCAINE 30 mL FENTANYL 50 mcg OXYGEN 2 l/min RADIAL COCKTAIL 5 mL (Bolus) VERSED 2 mg Medications (Bolus/Oral) Medication Time Given Dosage/Unit Administered By Reason 1% XYLOCAINE 02/09/2018 2:56:30 PM 10 mL Doni Vizcaino Patient arrived on 10 mL 1% XYLOCAINE given by Doni Vizcaino in Right Radial via Subcutaneous. Ordered by Doni Vizcaino. VERSED 02/09/2018 2:56:45 PM 2 mg Terra Sahu Patient arrived on 2 mg VERSED given by Terra Sahu RN in Right Antecubital via Peripheral IV. Or dered by Doni Vizcaino. FENTANYL 02/09/2018 2:57:00 PM 50 mcg Terra Sahu Patient arrived on 50 mcg FENTANYL given by Terra Sahu RN in Right Antecubital via Peripheral IV . Ordered by Doni Vizcaino. OXYGEN 02/09/2018 2:58:30 PM 2 l/min Terra Sahu 2 l/min OXYGEN given in lab by Terra Sahu RN via Nasal. Ordered by Doni Vizcaino. Ntg 200mcg Verapamil 2.5mg Heparin RADIAL COCKTAIL 02/09/2018 2:59:07 PM 5 mL (Bolus) Terra Sahu 2500U Patient arrived on 5 mL (Bolus) RADIAL COCKTAIL given by Terra Sahu RN via Radial. Using [Soluti on Name]. Ordered by Doni Vizcaino. Reason: Ntg 200mcg Verapamil 2.5mg Heparin 2500U. 1% XYLOCAINE 02/09/2018 3:18:37 PM 20 mL Doni Vizcaino 20 mL 1% XYLOCAINE given in lab by Doni Vizcaino in Right Groin via Subcutaneous. Ordered by Nabor Vizcaino enn. Medication (Drip) Medication Time Given Dosage/Unit Concentration/Unit Diluent (ml) Solution IV Solutions 02/09/2018 2:18:23 PM 0 mL (IV) 1000 NaCl .9 Patient arrived on IV Solutions given by malinda petty in Right Hand via Peripheral IV. Pump/Drip Flow = 20 ml/hr using NaCl .9. Ordered by Doni Vizcaino. Initial Case Assessment Cardiovascular HR NIBP 86 169/95 Edema Present Skin color Skin None Normal Warm Dry Circulatory - Right Pulses Dorsalis Pedis Femoral Radial d 1 2 Scale (0,1,2,3,4,d) Circulatory - Left Pulses Dorsalis Pedis Femoral Radial 1 Scale (0,1,2,3,4,d) Neurological State Oriented to time-place- Alert Moves all extremities person Respiration - General Respiration Rate SpO2 (%) (B/min) 15 93 Final Case Assessment Cardiovascular HR NIBP 72 147/85 Edema Present Skin color Skin None Normal Warm Dry Circulatory - Right Pulses Dorsalis Pedis Femoral Radial d 1 2 Scale (0,1,2,3,4,d) Circulatory - Left Pulses Dorsalis Pedis Femoral Radial 1 Scale (0,1,2,3,4,d) Neurological State Oriented to time-place- Alert Moves all extremities person Respiration - General Respiration Rate SpO2 (%) O2 (lpm) (B/min) 15 95 2 Chronological Log Time Study Chronological Log 14:17:50 Patient arrived via Bed. 14:17:51 Patient Name, D.O.B, / Armband Verified By R.N. 14:17:52 Consent signed by the physician and the patient and verified by the Trade Facilitator staff. 14:17:54 Pre-op and post- op instructions given; patient acknowledges understanding of instructions. 14:18:06 Patient has been NPO for Less than 6Hrs. 14:18:06 Allens test performed on the right radial and ulnar artery. 14:18:09 Skin Breakdown- 14:18:10 Patient Warmer Placed on the Table. 14:18:14 Arabella Prominences Protected 14:18:21 A # 20 IV was noted in the Hand (right). Grade = 0 14:18:22 A # 20 IV was noted in the Antecubital (right). Grade = 0 Patient arrived on IV Solutions given by cathlab, cathlab in Right Hand via Peripheral IV. Pump /Drip Flow = 20 ml/hr 14:18:23 using NaCl .9. Ordered by Doni Vizcaino. 14:18:24 History and physical on the chart or being dictated. Vitals capture started with the following parameters, Patient=Adult, Interval=5 min, Initial Pr rvphir=161 mmHg, 14:20:07 Deflation Rate=5 mmHg 14:20:34 Reference ECG taken 14:21:50 HR=86 bpm, QVOW=417/95 mmhg, SpO2=93 %, Resp=15 B/min, Pain=0, Vidya=10, Burgess=2 Assessment: Initial Case, HR=86 BPM, AYZZ=675/95 mmhg, Edema=None, Color=Normal, Skin = Warm, D ry Right Pulses: Aldo Ped=d, Femoral=1, Radial=2 14:21:55 Left Pulses: Femoral=1 Neurological: State=Alert, Ox3, ORTEGA Respiration: Resp=15 B/min, SpO2=93 % 14:23:12 HR=97 bpm, RTVL=721/91 mmhg, SpO2=92 %, Resp=20 B/min, Pain=0, Vidya=10, Burgess=2 14:25:03 HR=82 bpm, UJXF=151/82 mmhg, SpO2=92.0 %, Resp=22 B/min, Pain=0, Vidya=10, Burgess=2 14:25:58 Vitals capture stopped. Vitals capture started with the following parameters, Patient=Adult, Interval=5 min, Initial Pr wakpsy=524 mmHg, 14:29:29 Deflation Rate=5 mmHg 14:29:32 Vitals capture stopped. Vitals capture started with the following parameters, Patient=Adult, Interval=5 min, Initial Pr qfavgk=323 mmHg, 14:29:40 Deflation Rate=5 mmHg 14:30:28 HR=86 bpm, DEVS=480/80 mmhg, SpO2=93.0 %, Resp=18 B/min, Pain=0, Vidya=10, Burgess=2 14:31:23 transfer patient to lab 5 due to xray problems 14:31:57 Vitals capture stopped. Vitals capture started with the following parameters, Patient=Adult, Interval=5 min, Initial Pr kukuoj=442 mmHg, 14:39:48 Deflation Rate=5 mmHg, Cuff placed on Right Ankle 14:39:58 Reference ECG taken 14:41:25 HR=82 bpm, PFQX=058/87 mmhg, SpO2=93 %, Resp=15 B/min, Pain=0, Vidya=10, Burgess=2 14:45:47 HR=78 bpm, ODJG=289/77 mmhg, SpO2=92.0 %, Resp=16 B/min, Pain=0, Vidya=10, Burgess=2 14:49:19 Right Radial and right groin prepped with 2% chlorhexidine, and draped after a 3 min. waiti ng time. 14:50:44 HR=77 bpm, MSFB=715/77 mmhg, SpO2=92.0 %, Resp=14 B/min, Pain=0, Vidya=10, Burgess=2 14:51:07 Pressure channel 1 zeroed. Time Out. Correct patient, correct procedure, correct physician, power injector loaded with con trast with surgical team 14:55:36 present. Time Out Concurred by MD and individual staff in procedure. 14:55:47 HR=77 bpm, GLAS=999/80 mmhg, SpO2=94.0 %, Resp=18 B/min, Pain=0, Vidya=10, Burgess=2 14:55:52 Case Start Patient arrived on 10 mL 1% XYLOCAINE given by Doni Vizcaino in Right Radial via Subcutaneous. O rdered by Charis 14:56:30 Doni. Patient arrived on 2 mg VERSED given by Terra Sahu RN in Right Antecubital via Peripheral IV. Ordered by Charis 14:56:45 Doni. Patient arrived on 50 mcg FENTANYL given by Terra Sahu RN in Right Antecubital via Periphe ral IV. Ordered by 14:57:00 Doni Vizcaino. 14:58:30 2 l/min OXYGEN given in lab by Terra Sahu RN via Nasal. Ordered by Doni Vizcaino. 14:58:43 Access site was Radial Artery. A SHEATH, FR6 RADIAL PRELUDE EASE 11CM FR 6 was advanced into the Radial (right) using the Max fied Seldinger 14:58:56 technique. Patient arrived on 5 mL (Bolus) RADIAL COCKTAIL given by Terra Sahu RN via Radial. Using [ Solution Name]. 14:59:07 Ordered by Doni Vizcaino. Reason: Ntg 200mcg Verapamil 2.5mg Heparin 2500U. 15:00:42 HR=76 bpm, DAMP=472/61 mmhg, SpO2=93 %, Resp=13 B/min, Pain=0, Vidya=10, Burgess=2 A CATHETER, FR5 OPTITORQUE RADIAL TIG 4.0 FR 5 was advanced over a wire. OMNIPAQUE, 350 MG, 150 ML 150ML 15:01:25 was used for injections. 15:01:26 The LCA was injected and visualized at various angles. OMNIPAQUE, 350 MG, 150ML 150ML used . Recorded Pressure: Ao, HR=76, Condition=Condition 1 15:02:01 (Aorta) Ao 89/56/70 After removing the current catheter a JR 5.0 INFINITI CATHETER FR 6 was advanced over a WIRE, E XCHANGE 260CM 15:04:53 3MMJ 260CM. 15:05:45 HR=75 bpm, FFTP=210/61 mmhg, SpO2=92 %, Resp=14 B/min, Pain=0, Vidya=10, Burgess=2 15:09:08 The RCA was injected and visualized at various angles. OMNIPAQUE, 350 MG, 150ML 150ML used . After removing the current catheter a AR MOD INFINITI CATHETER FR 6 was advanced over a WIRE, E XCHANGE 260CM 15:09:56 3MMJ 260CM. 15:10:46 HR=72 bpm, YBBJ=074/67 mmhg, SpO2=92 %, Resp=12 B/min, Pain=0, Vidya=10, Burgess=2 After removing the current catheter a JR 4.0 125CM GUIDE CATHETER FR 6 was advanced over a WIRE , EXCHANGE 15:15:01 260CM 3MMJ 260CM. 15:15:45 HR=73 bpm, HAYM=639/72 mmhg, SpO2=93 %, Resp=14 B/min, Pain=0, Vidya=10, Burgess=2 15:18:02 A WIRE, EXCHANGE 260CM 3MMJ 260CM was inserted via Radial (right). 15:18:15 Catheter was removed 15:18:37 20 mL 1% XYLOCAINE given in lab by Doni Vizcaino in Right Groin via Subcutaneous. Ordered by Doni Vizcaino. 15:20:05 Access site was Right Femoral Artery. 15:20:10 A SHEATH, FR6.5 PRELUDE 11CM FR 6.5 was advanced into the Fem Art (right) using the Raúl law Seldinger technique. 15:20:48 HR=72 bpm, VUNU=867/73 mmhg, SpO2=93.0 %, Resp=14 B/min, Pain=0, Vidya=10, Burgess=2 A JR 4.0 125CM GUIDE CATHETER FR 6 was advanced over a wire. OMNIPAQUE, 350 MG, 150ML 150ML was used for 15:20:57 injections. After removing the current catheter a 3DRC INFINITI CATHETER FR 6 was advanced over a WIRE, EXC HANGE 260CM 15:24:37 3MMJ 260CM. 15:25:47 HR=71 bpm, AFYK=568/61 mmhg, SpO2=93.0 %, Resp=12 B/min, Pain=0, Vidya=10, Burgess=2 15:26:44 The RCA was injected and visualized at various angles. OMNIPAQUE, 350 MG, 150ML 150ML used . After removing the current catheter a JL 4.0 INFINITI CATHETER FR 6 was advanced over a WIRE, E XCHANGE 260CM 15:29:35 3MMJ 260CM. 15:30:49 HR=73 bpm, ALPL=931/64 mmhg, SpO2=93.0 %, Resp=20 B/min, Pain=0, Vidya=10, Burgess=2 15:30:53 The LCA was injected and visualized at various angles. OMNIPAQUE, 350 MG, 150ML 150ML used . After removing the current catheter a PIGTAIL STR INFINITI CATHETER FR 6 was advanced over a WI RE, EXCHANGE 15:35:06 260CM 3MMJ 260CM. 15:36:37 HR=74 bpm, YSOC=259/72 mmhg, SpO2=94.0 %, Resp=17 B/min, Pain=0, Vidya=10, Burgess=2 After removing the current catheter a MPA-2 INFINITI 125CM CATHETER FR 5 was advanced over a WI RE, EXCHANGE 15:37:31 260CM 3MMJ 260CM. Recorded Pressure: LV, HR=84, Condition=Condition 1 15:38:49 (Left Ventricle) LV 161/14/26 15:39:51 The LV was injected at 8 cc/sec for a total of 35. OMNIPAQUE, 300 MG, 50ML 50ML used. 15:40:12 A WIRE, EXCHANGE 260CM 3MMJ 260CM was inserted via Fem Art (right). 15:40:20 Catheter was removed 15:40:51 HR=77 bpm, WTJB=188/74 mmhg, SpO2=95.0 %, Resp=15 B/min, Pain=0, Vidya=10, Burgess=2 15:41:47 An injection in the Fem Art (right) was made through the SHEATH, FR6.5 PRELUDE 11CM FR 6.5. 15:42:53 Catheter(s) removed without difficulty 15:42:55 VASCADE, FR6 CLOSURE SYSTEM FR 6\\7 placement in the Fem Art (right) 15:44:43 Case End 15:45:50 HR=74 bpm, HPDD=888/83 mmhg, SpO2=94.0 %, Resp=15 B/min, Pain=0, Vidya=10, Burgess=2 15:46:05 Sterile dressing applied to site Radial Compression Device Used. 20 mLs of air placed in BAND, RADIAL COMPRESSION TR LARGE 29 29 CM. Affected 15:47:47 hand 95 % O2 saturation. 15:48:13 No case complications noted. 15:49:47 Cine recording checked. 15:50:51 HR=72 bpm, HOWN=777/85 mmhg, SpO2=95.0 %, Resp=17 B/min, Pain=0, Vidya=10, Burgess=2 15:52:27 Vitals capture stopped. Assessment: Final Case, HR=72 BPM, UZZM=029/85 mmhg, Edema=None, Color=Normal, Skin = Warm, Dr y Right Pulses: Aldo Ped=d, Femoral=1, Radial=2 15:53:30 Left Pulses: Femoral=1 Neurological: State=Alert, Ox3, ORTEGA Respiration: Resp=15 B/min, SpO2=95 %, O2=2 lpm 15:54:31 Bedside Report will be given. 15:55:22 A Left Heart Cath was performed. 15:58:15 Patient moved to [facility] 15:58:20 Clinical correlaton risk stratification. End Study - Contrast Media Used In Study Contrast Total Opened (mL) Total Used (mL) Total Wasted (mL) Omnipaque 200 200 0 End Study - Maximum Contrast Load Max Contrast Load (mL) 833.3 End Study - Radiation Exposure Fluoro Time (minutes) 13.6 End Study - Patient Disposition Complications Transferred To Telemetry Bed
[2018-02-09] MEDS ORDERED: MISC INFORMATION XX ONE (16:00)
[2018-02-09] MEDS ORDERED: IOHEXOL 350 MG/ML 100 ML BTL (for Cath Lab) OTHER ONE (16:13)
--- NOTE | 2018-02-09 16:17 | MA ---
cc: Doni Vizcaino MD, Beth A MD DATE: 02/09/2018 PROCEDURE: Difficult left heart catheterization, selective coronary angiography, left ventriculography. PROCEDURE NOTES: The patient was brought to the cardiac catheterization laboratory in a fasting state after having signed informed consent. The right radial region was prepped and draped as per policy and anesthetized with 1% lidocaine. Arterial access was obtained via the right radial artery and a 6-[place] Island[place] sheath placed. Manipulation of catheters, including a [place] catheter and Swathi right 5.0, via the right radial approach was very difficult. In addition, catheters were not long enough to reach the coronary vessels. Some shots of the left coronary system were taken with a [place] catheter. One shot of the right coronary was taken with an Amplatz right modified. We decided to do the rest of the case for better imaging through the right femoral artery approach. The right groin was prepped and draped previously and anesthetized with 1% lidocaine. Arterial access was obtained via the right femoral artery and a 6-[place] Island[place] sheath placed. Further coronary arteriography was performed using 6-[place] Islander Swathi left 4.0 and a progressive right catheter. Left ventriculography was done using a multipurpose catheter. There were no apparent immediate complications. His arteriotomy site was closed with VASCADE with the achievement of good hemostasis. HEMODYNAMIC DATA: Left ventricle 154 with an end diastolic pressure of 12, aorta 161/88 with a mean of 110. There was no significant transvalvular aortic gradient on pullback of the pigtail catheter. CORONARY ARTERIOGRAPHY: Visualization of some of the coronary vessels is difficult due to the patient's body habitus. The left main is a long vessel, which is diffusely diseased, probably up to 10% diffusely. The left anterior descending demonstrates a stent in its mid portion. The stent is widely patent. Multiple views of the ostium of the LAD suggest a hazy globular lesion, although it is difficult to visualize. It does appear to result in up to 75% stenosis of this region. The LAD gives rise to a small high diagonal, which is subtotally occluded at its ostium. There is also a medium size second diagonal, which has up to 80% ostial stenosis. The left circumflex is a relatively small vessel giving rise to a large obtuse marginal. The AP caudal and the PATRIZIA cranial views suggest severe disease in the proximal left circumflex prior to the takeoff of a small second obtuse marginal, resulting in up to 70% stenosis. The large first obtuse marginal is somewhat difficult to visualize, but appears to have mild diffuse disease. The right coronary artery is a very large dominant vessel, which is diffusely diseased. In the mid to distal portions, there is minimal luminal irregularities. From the ostium to proximal portion, there is what appears to be extensive thrombus burden resulting in up to 95% stenosis in this region. LEFT VENTRICULOGRAPHY: Contrast injection of the left ventricle reveals no segmental wall motion abnormalities. Ejection fraction is estimated at 65%. CONCLUSIONS: 1. Severe 3-vessel coronary artery disease including what appears to be a heavily thrombosed ostial to proximal right coronary artery. There is also a questionable lesion at the ostium of the LAD, which is hazy. 2. Normal left ventricular function with estimated ejection fraction of 65%. DISCUSSION: At this point, will probably place the patient on anticoagulation therapy for 2-3 days and relook at the right coronary and possibly perform intravascular ultrasound imaging of the LAD. He likely will be referred for coronary artery bypass grafting. MD HOLDEN Hussein/JADEN , 03:57 PM , 04:16 PM [email or web address]
[2018-02-09] MEDS ORDERED: HEPARIN SODIUM - IV 10,000 UNITS/10 ML VIAL IV PUSH ONE ×2 (16:45→19:00)
[2018-02-09] MEDS: ATORVASTATIN 40 MG TAB PO SCH (21:27)
[2018-02-09] MEDS: HEPARIN-D5W 25,000 U/250 ML 250 ML IV PRN (21:31)
[2018-02-09] MEDS ORDERED: HEPARIN SODIUM - IV 10,000 UNITS/10 ML VIAL IV PUSH PRN (22:00)
[2018-02-09] MEDS: IBUPROFEN 400 MG TAB PO PRN (22:04)
[2018-02-10] VITALS (28 sets, daily range): BP systolic 103–146; BP diastolic 59–79; PULSE 65–78; RESP 16–18; TEMP 98.1–98.9; O2SAT 91–96
[2018-02-10 03:37] LABS: HEMATOCRIT 38.1 % (39.0-51.0); HEMOGLOBIN 12.9 GM/DL (13.0-17.0); MEAN CELL VOLUME 93.2 FL (80.0-100.0); MEAN CORPUSCULAR HEMOGLOBIN 31.5 PG (27.0-34.0); MEAN CORPUSCULAR HGB CONC 33.8 % (32.0-36.0); MEAN PLATELET VOLUME 8.4 FL (7.0-11.0); PLATELET COUNT 141 TH/MM3 (150-450); RED BLOOD COUNT 4.09 MIL/MM3 (4.50-5.90); RED CELL DISTRIBUTION WIDTH 14.3 % (11.6-17.2); WHITE BLOOD COUNT 10.8 TH/MM3 (4.0-11.0)
[2018-02-10] MEDS: HEPARIN SODIUM - IV 10,000 UNITS/10 ML VIAL IV PUSH PRN ×2 (03:57→15:10)
[2018-02-10 04:01] LABS: BICARBONATE 32.9 MEQ/L (21.0-32.0); CALCIUM 8.4 MG/DL (8.5-10.1); CREATININE 1.02 MG/DL (0.60-1.30)
[2018-02-10] MEDS: INSULIN ASPART SUPPLEMENTAL SCALE SQ SCH ×4 (08:00→21:00)
--- NOTE | 2018-02-10 08:00 | PD.CARD.PN ---
Subjective Subjective Remarks No CP, dyspnea, dizziness, groin pain, wrist pain, palpitations. Objective Medications Item Value Date Time Heparin Sodium/ 250 ml @ 10 mls/hr 02/09/18 1900 Dextrose TITRATE PRN/IV 02/09/182130 Aspirin 81 mg 02/07/18 1030 (Aspirin Chew) DAILY/CHEW 02/09/18 0933 Atorvastatin 40 mg 02/06/18 2100 Calcium HS/PO 02/09/182126 (Lipitor) Metoprolol 100 mg 02/06/18 1300 Tartrate TID/PO 02/09/18 1832 (Lopressor) Dofetilide 500 mcg 02/06/18 1200 (Tikosyn) BID/PO 02/09/187 Potassium Chloride 10 meq 02/06/18 1130 (KCl) DAILY/PO 02/09/18 0933 Furosemide 20 mg 02/06/18 1130 (Lasix) DAILY/PO 02/09/18 0932 Current Medications Medications (Trade) Dose Ordered Sig/Marilyn Route Start Time Stop Time Status Last Admin (Lipitor) 40 mg HS PO 02/06/18 21:00 02/09/18 21:27 (Lasix) 20 mg DAILY PO 02/06/18 11:30 02/09/18 09:32 (Lopressor) 100 mg TID PO 02/06/18 13:00 02/09/18 18:32 (KCl) 10 meq DAILY PO 02/06/18 11:30 02/09/18 09:33 (Xarelto) 20 mg DAILY PO 02/06/18 12:00 Future Hold 02/06/18 11:57 (NS Flush) 2 ml BID IV FLUSH 02/06/18 21:00 02/09/18 21:27 (NS Flush) 2 ml UNSCH PRN IV FLUSH 02/06/18 11:15 (Nitroglycerin 2% Oint) 0.5 inch Q6HR PRN TOP 02/06/18 11:15 (Morphine Inj) 2 mg Q1HR PRN IV PUSH 02/06/18 11:15 02/09/18 16:50 (Narcan Inj) 0.4 mg UNSCH PRN IV PUSH 02/06/18 11:15 (Loraine-Colace) 1 tab BID PO 02/06/18 21:00 02/08/18 09:07 (Milk Of Magnesia Liq) 30 ml Q12H PRN PO 02/06/18 11:15 02/07/18 08:49 (Senokot) 17.2 mg Q12H PRN PO 02/06/18 11:15 (Dulcolax Supp) 10 mg DAILY PRN RECTAL 02/06/18 11:15 (Lactulose Liq) 30 ml DAILY PRN PO 02/06/18 11:15 (NovoLOG SUPPLEMENTAL SCALE) 1 ACHS SLIDING SCALE SQ 02/06/18 12:00 02/09/18 21:00 (Tikosyn) 500 mcg BID PO 02/06/18 12:00 02/09/18 21:27 (D50w (Vial) Inj) 50 ml UNSCH PRN IV PUSH 02/06/18 12:00 (Glucagon Inj) 1 mg UNSCH PRN OTHER 02/06/18 12:00 (Aspirin Chew) 81 mg DAILY CHEW 02/07/18 10:30 02/09/18 09:33 (Benadryl) 50 mg NURSE AIDE PO 02/08/18 11:15 02/12/18 11:14 02/09/18 14:03 (Valium) 10 mg NURSE AIDE PO 02/08/18 11:15 02/12/18 11:14 02/09/18 14:03 (Versed Inj) 1 mg NURSE AIDE IV PUSH 02/08/18 11:15 02/12/18 11:14 (Heparin Inj) 5,000 units UNSCH PRN IV PUSH 02/09/18 22:00 (Heparin Inj) 2,500 units UNSCH PRN IV PUSH 02/09/18 22:00 02/10/18 03:57 Heparin Sodium/ Dextrose 250 ml @ 10 mls/hr TITRATE PRN IV 02/09/18 19:00 02/09/18 21:31 (Motrin) 400 mg Q4HR PRN PO 02/09/18 22:00 02/09/18 22:04 Vital Signs / I&O Vital Signs Date Time Temp Pulse Resp B/P (MAP) Pulse Ox O2 Delivery O2 Flow Rate FiO2 02/10/18 06:00 68 02/10/18 05:00 69 02/10/18 04:00 72 02/10/18 03:00 75 02/10/18 03:00 98.5 75 16 127/76 (93) 96 02/10/18 02:00 67 02/10/18 01:00 66 02/10/18 00:00 75 02/10/18 00:00 98.1 75 16 146/75 (98) 96 02/09/18 23:00 72 02/09/18 22:00 70 02/09/18 21:00 72 02/09/18 21:00 72 02/09/18 20:00 62 02/09/18 20:00 98.1 61 18 138/62 (87) 96 02/09/18 19:00 66 02/09/18 18:00 64 02/09/18 17:00 66 02/09/18 16:55 16 02/09/18 16:00 64 02/09/18 16:00 97.8 66 16 144/79 (100) 93 02/09/18 13:00 64 02/09/18 12:00 76 02/09/18 12:00 97.9 63 18 137/80 (99) 94 02/09/18 11:00 81 02/09/18 10:00 100 02/09/18 09:00 72 02/09/18 08:00 70 I/O 02/09/18 02/09/18 02/09/18 02/10/18 02/10/18 02/10/18 07:00 15:00 23:00 07:00 15:00 23:00 Intake Total 240 ml 900 ml 480 ml Output Total 1200 ml 1750 ml 1075 ml Balance -960 ml -850 ml -595 ml Intake Oral 240 ml 0 ml 480 ml IV Total 900 ml Output Urine Total 1200 ml 1750 ml 1075 ml # Bowel Movements 0 0 Physical Exam GENERAL: Well developed, well nourished. No acute distress. HEENT: Jugular venous pressure is normal. CHEST: Lungs clear to auscultation anteriorly. CARDIAC: Regular rate and rhythm without S3, S4. II/ CHERIE base. Normal S2. ABDOMEN: Soft, nontender, no hepatosplenomegaly. Bowel sounds present. EXTREMITIES: No clubbing, cyanosis, or edema. Right groin minimally tender, no hematoma. Right radial site stable, normal pulse. Laboratory Laboratory Tests Test 02/10/18 03:07 White Blood Count 10.8 TH/MM3 Red Blood Count 4.09 MIL/MM3 Hemoglobin 12.9 GM/DL Hematocrit 38.1 % Mean Corpuscular Volume 93.2 FL Mean Corpuscular Hemoglobin 31.5 PG Mean Corpuscular Hemoglobin Concent 33.8 % Red Cell Distribution Width 14.3 % Platelet Count 141 TH/MM3 Mean Platelet Volume 8.4 FL Activated Partial Thromboplast Time 30.3 SEC Blood Urea Nitrogen 14 MG/DL Creatinine 1.02 MG/DL Random Glucose 125 MG/DL Calcium Level 8.4 MG/DL Sodium Level 142 MEQ/L Potassium Level 4.1 MEQ/L Chloride Level 103 MEQ/L Carbon Dioxide Level 32.9 MEQ/L Anion Gap 6 MEQ/L Estimat Glomerular Filtration Rate 70 ML/MIN Assessment and Plan Problem List: (1) CAD (coronary artery disease) ICD Codes: I25.10 - Atherosclerotic heart disease of [place] coronary artery without angina pectoris Status: Chronic Plan: Status post NSTEMI. Probably severe 3 vessel CAD on cath yesterday, including heavily thrombosed ostial to prox RCA, possible significant hazy ostial LAD lesion. Stable clinically. REC repeat coronary angio Thurs, depending on findings to consider CABG continue heparin drip will f/u at cath (2) Hyperlipidemia ICD Codes: E78.5 - Hyperlipidemia, unspecified Status: Chronic Plan: Acceptable lipid profile. Continue statin therapy. (3) Hypertension ICD Codes: I10 - Essential (primary) hypertension Status: Chronic Plan: Fluctuating BP's. Continue to monitor. (4) Paroxysmal atrial flutter ICD Codes: I48.92 - Unspecified atrial flutter Status: Resolved Plan: Stable. History of ablation 2011. (5) Paroxysmal atrial fibrillation ICD Codes: I48.0 - Paroxysmal atrial fibrillation Status: Chronic Plan: Stable. Remains in NSR on Tikosyn. History of ablation 02/03/14. Hold Xarelto for now. Code Status full code Discussed Condition With patient Problem Qualifiers (1) CAD (coronary artery disease): Qualified Codes: I25.110 - Atherosclerotic heart disease of [place] coronary artery with unstable angina pectoris (2) Hyperlipidemia: Qualified Codes: E78.2 - Mixed hyperlipidemia (3) Hypertension: Qualified Codes: I10 - Essential (primary) hypertension Doni Vizcaino MD Feb 10, 2018 08:00
[2018-02-10] MEDS: FUROSEMIDE 20 MG TAB PO SCH (08:14)
[2018-02-10] MEDS: DOFETILIDE 250 MCG CAP PO SCH ×2 (08:14→21:33)
[2018-02-10] MEDS: METOPROLOL TARTRATE 100 MG TAB PO SCH ×3 (08:14→17:48)
[2018-02-10] MEDS: ASPIRIN 81 MG CHEW TAB CHEW SCH (08:14)
[2018-02-10] MEDS: SODIUM CHLORIDE 0.9% FLUSH 10 ML FLUSH IV FLUSH SCH ×2 (08:14→21:33)
[2018-02-10] MEDS: DOCUSATE SODIUM 50 MG/SENNA 8.6 MG TAB PO SCH ×2 (08:14→21:33)
[2018-02-10] MEDS: POTASSIUM CHLORIDE 10 MEQ CONTROLLED RELEASE TAB PO SCH (08:14)
[2018-02-10] MEDS: IBUPROFEN 400 MG TAB PO PRN (15:14)
--- NOTE | 2018-02-10 15:21 | HHI.FPPN ---
Subjective Remarks Seen and examined bedside today. Patient states that he continues to feel comfortable and does not have any chest pain/shortness of breath/dizziness. No acute events overnight. He does have some mild pain in the groin from his catheterization procedure but he has not noticed any drainage. No nausea/ vomiting. (Cesilia Ortiz MD R2) Objective Vitals Vital Signs Date Time Temp Pulse Resp B/P (MAP) Pulse Ox O2 Delivery O2 Flow Rate FiO2 02/10/18 12:01 72 02/10/18 11:32 98.9 71 18 103/59 (74) 96 02/10/18 11:00 71 02/10/18 10:00 74 02/10/18 09:00 76 02/10/18 08:49 92 21 02/10/18 08:15 98.6 77 18 141/79 (99) 93 02/10/18 08:00 78 02/10/18 07:00 73 02/10/18 06:00 68 02/10/18 05:00 69 02/10/18 04:00 72 02/10/18 03:00 75 02/10/18 03:00 98.5 75 16 127/76 (93) 96 02/10/18 02:00 67 02/10/18 01:00 66 02/10/18 00:00 75 02/10/18 00:00 98.1 75 16 146/75 (98) 96 02/09/18 23:00 72 02/09/18 22:00 70 02/09/18 21:00 72 02/09/18 21:00 72 02/09/18 20:00 62 02/09/18 20:00 98.1 61 18 138/62 (87) 96 02/09/18 19:00 66 02/09/18 18:00 64 02/09/18 17:00 66 02/09/18 16:55 16 02/09/18 16:00 64 02/09/18 16:00 97.8 66 16 144/79 (100) 93 I/O 02/09/18 02/09/18 02/09/18 02/10/18 02/10/18 02/10/18 07:00 15:00 23:00 07:00 15:00 23:00 Intake Total 240 ml 900 ml 480 ml Output Total 1200 ml 1750 ml 1075 ml Balance -960 ml -850 ml -595 ml Intake Oral 240 ml 0 ml 480 ml IV Total 900 ml Output Urine Total 1200 ml 1750 ml 1075 ml # Bowel Movements 0 0 (Cesilia Ortiz MD R2) Result Diagram: 02/10/18 0307 02/10/18 0307 Objective Remarks GENERAL: This is a well-nourished, well-developed, morbidly obese patient, in no apparent distress. SKIN: Warm and dry. Bandage in place over groin, no drainage from area, mild erythema HEAD: Atraumatic. Normocephalic. EYES: Pupils equal round. Extraocular motions intact. No scleral icterus. No injection or drainage. ENT: Nose without bleeding, purulent drainage or septal hematoma; but nasal cannula in place so exam is limited. Airway patent. NECK: Supple, nontender, no meningeal signs. CARDIOVASCULAR: Regular rate. 2 out of 6 systolic ejection murmur. No gallops or rubs. RESPIRATORY: Clear to auscultation anteriorly. Breath sounds equal bilaterally. No wheezes, rales, or rhonchi. GASTROINTESTINAL: Positive bowel sounds. Abdomen soft, non-tender, nondistended. MUSCULOSKELETAL: Extremities without clubbing, cyanosis. No joint tenderness, effusion, or edema noted. No calf tenderness. NEUROLOGICAL: Awake and alert. Cranial nerves II through XII intact. Motor and sensory grossly within normal limits. Normal speech. Procedures Cardiac catheterization 02/09. (Cesilia Ortiz MD R2) A/P Assessment and Plan Patient is a 77 year old male with a past medical history significant of A.fib s /p ablation and electrocardioversion and current anticoagulation, CAD s/p VT with stent placement, CHF, DM Type II, HTN and hyperlipidemia who presents with chest discomfort and shortness of breath for approximately two hours on the day of admission. Troponin increased to 5.57 and an EKG showed ST segment depressions in lateral/junctional leads. cardiac catheterization with cardiology on Friday02/09/2018 revealing severe three-vessel CAD, scheduled for repeat coronary angiogram with consideration of CABG. Discharge Planning Pending catheterization and cardiac clearance for discharge. (Cesilia Ortiz MD R2) Attending Attestation Patient seen and examined, discussed with resident team. I agree with assessment and management as documented and discussed with me. PT without complaints. He is seen in the afternoon with his and daughter in the room. Pt expresses understanding of the plan and understands he will have a cath on . Discussed importance of heparin drip, as ordered by cardiology. (Florinda Elliott MD) Problem List: (1) Non-STEMI (non-ST elevated myocardial infarction) ICD Codes: I21.4 - Non-ST elevation (NSTEMI) myocardial infarction Status: Acute Plan: EKG with lateral lead (V4, V5) ST depression. Repeat EKG without evidence of ST elevation or depression. Troponin DOWNTRENDIN.32 -> 5.57 --> 4.59 --> 3.22. CK-MB DOWNTRENDIN.5 -> 17.6 --> 15.9. Despite significant increase in cardiac enzymes, patient denies chest pain and associated symptoms. Per cardiology: * Xarelto held 02/06. * Started Lovenox on 02/07 (90 mg SQ q12hr) to allow for cardiac catheterization on 02/09. * Lovenox discontinued on 02/08 in preparation of cardiac catheterization on . * Placed on heparin drip, hold Xarelto (2) CAD (coronary artery disease) ICD Codes: I25.10 - Atherosclerotic heart disease of [place] coronary artery without angina pectoris Status: Chronic Plan: Patient with history of CAD and VT in 2012 s/p stent placement. * See Plan for Non-STEMI. (3) History of atrial fibrillation ICD Codes: Z86.79 - Personal history of other diseases of the circulatory system Status: Acute Plan: Patient with history of A.fib s/p ablations x3 and electrocardioversion. * Continue home meds. * HOld Xarelto (4) CHF (congestive heart failure) ICD Codes: I50.9 - Heart failure, unspecified Plan: Patient with history of CHF. BNP on admission 31. ECHO CONCLUSIONS 02/06: * Normal left ventricular size and wall thickness. * The left ventricular systolic function is normal with an estimated ejection fraction in the range of 60-65%. * No definite wall motion abnormalities. * Moderate mitral annular calcification. * Diffuse mild calcification of the aortic valve. (5) Hypertension ICD Codes: I10 - Essential (primary) hypertension Status: Chronic Plan: Patient with history of hypertension. * Continue home meds. (6) SATURNINO (acute kidney injury) ICD Codes: N17.9 - Acute kidney failure, unspecified Status: Resolved Plan: Resolved. 1.42 on admission. (7) Diabetes mellitus ICD Codes: E11.9 - Type 2 diabetes mellitus without complications Status: Acute Plan: Patient with history of pre-diabetes, per patient. Patient with history of diabetes, per chart. On admission, random glucose 123. * Hemoglobin A1C 5.8 * Held home meds. * Low NovoLOG Scale. (8) Hyperlipidemia ICD Codes: E78.5 - Hyperlipidemia, unspecified Status: Chronic Plan: Patient with history of hyperlipidemia. * Continue home meds. (9) Fluid, Nutrition, Electrolyte, and Prophylaxis Status: Acute Plan: Fluid: * NS 100 ml/hr while NPO. Nutrition: * Regular diet Electrolyte: * Monitor and replete as necessary. Prophylaxis: * SCDs. * Heparin drip by cardiology (Cesilia Ortiz MD R2) Problem Qualifiers (1) CAD (coronary artery disease): Qualified Codes: I25.110 - Atherosclerotic heart disease of [place] coronary artery with unstable angina pectoris (2) Hypertension: Qualified Codes: I10 - Essential (primary) hypertension (3) Hyperlipidemia: Qualified Codes: E78.2 - Mixed hyperlipidemia Cesiila Ortiz MD R2 Feb 10, 2018 15:21 Florinda Elliott MD Feb 10, 2018 21:26
[2018-02-10] MEDS: HEPARIN-D5W 25,000 U/250 ML 250 ML IV PRN (18:15)
[2018-02-10] MEDS: ATORVASTATIN 40 MG TAB PO SCH (21:32)
[2018-02-11] VITALS (21 sets, daily range): BP systolic 113–161; BP diastolic 54–87; PULSE 68–107; RESP 16–20; TEMP 97.3–98.9; O2SAT 95–97
[2018-02-11 02:06] LABS: HEMATOCRIT 37.2 % (39.0-51.0); HEMOGLOBIN 12.8 GM/DL (13.0-17.0); MEAN CELL VOLUME 92.3 FL (80.0-100.0); MEAN CORPUSCULAR HEMOGLOBIN 31.7 PG (27.0-34.0); MEAN CORPUSCULAR HGB CONC 34.4 % (32.0-36.0); PLATELET COUNT 134 TH/MM3 (150-450); RED BLOOD COUNT 4.03 MIL/MM3 (4.50-5.90); RED CELL DISTRIBUTION WIDTH 13.9 % (11.6-17.2); WHITE BLOOD COUNT 11.3 TH/MM3 (4.0-11.0)
[2018-02-11 02:27] LABS: ALBUMIN 3.1 GM/DL (3.4-5.0); ALT (GPT) 36 U/L (12-78); AST (GOT) 35 U/L (15-37); BLOOD UREA NITROGEN 16 MG/DL (7-18); CALCIUM 8.4 MG/DL (8.5-10.1); CHLORIDE 103 MEQ/L (98-107); CREATININE 1.11 MG/DL (0.60-1.30); GLOMERULAR FILTRATION RATE 64 ML/MIN (>89); GLUCOSE,RANDOM 121 MG/DL (74-106); SODIUM (NA) 140 MEQ/L (136-145)
[2018-02-11 02:29] LABS: ALKALINE PHOSPHATASE 72 U/L (45-117); TOTAL BILIRUBIN ADULT 0.9 MG/DL (0.2-1.0); TOTAL PROTEIN 6.5 GM/DL (6.4-8.2)
[2018-02-11] MEDS: HEPARIN SODIUM - IV 10,000 UNITS/10 ML VIAL IV PUSH PRN (02:34)
[2018-02-11] MEDS: INSULIN ASPART SUPPLEMENTAL SCALE SQ SCH ×4 (08:00→20:49)
[2018-02-11] MEDS ORDERED: DIAZEPAM 10 MG TAB PO SCH (08:45)
[2018-02-11] MEDS ORDERED: diphenhydrAMINE HCL 50 MG CAP PO SCH (08:45)
[2018-02-11] MEDS ORDERED: MIDAZOLAM HCL 2 MG/2 ML VIAL IV PUSH SCH (08:45)
[2018-02-11] MEDS: SODIUM CHLORIDE 0.9% FLUSH 10 ML FLUSH IV FLUSH SCH ×2 (09:00→20:51)
[2018-02-11] MEDS: DOCUSATE SODIUM 50 MG/SENNA 8.6 MG TAB PO SCH ×2 (09:28→20:51)
[2018-02-11] MEDS: FUROSEMIDE 20 MG TAB PO SCH (09:28)
[2018-02-11] MEDS: ASPIRIN 81 MG CHEW TAB CHEW SCH (09:28)
[2018-02-11] MEDS: POTASSIUM CHLORIDE 10 MEQ CONTROLLED RELEASE TAB PO SCH (09:28)
[2018-02-11] MEDS: METOPROLOL TARTRATE 100 MG TAB PO SCH ×3 (09:28→18:24)
[2018-02-11] MEDS: DOFETILIDE 250 MCG CAP PO SCH (09:29)
[2018-02-11] MEDS: IBUPROFEN 400 MG TAB PO PRN (09:34)
--- NOTE | 2018-02-11 12:13 | HHI.FPPN ---
Subjective Remarks Patient seen and examined bedside this morning. Patient states that during the night he felt a flutter in his chest and he was told by the nurses that he was having a run of V. tach. He did not have any specific chest pain in the flutter only lasted briefly. He did not have any nausea or vomiting. He continued to eat his breakfast throughout this episode. (Cesilia Ortiz MD R2) Objective Vitals Vital Signs Date Time Temp Pulse Resp B/P (MAP) Pulse Ox O2 Delivery O2 Flow Rate FiO2 02/11/18 11:00 97.6 78 16 117/66 (83) 95 02/11/18 11:00 84 02/11/18 10:00 90 02/11/18 09:00 90 02/11/18 08:00 80 02/11/18 07:00 78 02/11/18 07:00 98.3 87 18 137/71 (93) 96 02/11/18 06:00 107 02/11/18 05:00 73 02/11/18 04:00 70 02/11/18 03:00 98.9 77 16 113/54 (73) 96 02/11/18 03:00 72 02/11/18 02:00 77 02/11/18 01:00 78 02/11/18 00:00 74 02/11/18 00:00 98.0 70 16 134/81 (98) 97 02/10/18 23:00 65 02/10/18 22:00 68 02/10/18 21:00 66 02/10/18 20:00 68 02/10/18 20:00 98.7 68 16 128/69 (88) 94 02/10/18 19:00 70 02/10/18 18:01 74 02/10/18 17:00 68 02/10/18 16:01 66 02/10/18 15:01 98.6 68 18 134/73 (93) 91 02/10/18 15:00 67 02/10/18 14:00 66 02/10/18 13:00 72 I/O 02/10/18 02/10/18 02/10/18 02/11/18 02/11/18 02/11/18 07:00 15:00 23:00 07:00 15:00 23:00 Intake Total 480 ml 1026 ml 240 ml Output Total 1075 ml 925 ml 2100 ml Balance -595 ml 101 ml -1860 ml Intake Oral 480 ml 802 ml 240 ml IV Total 224 ml Output Urine Total 1075 ml 925 ml 2100 ml # Voids 3 # Bowel Movements 0 0 0 (Cesilia Ortiz MD R2) Result Diagram: 02/11/1815402/11/18 0155 Objective Remarks GENERAL: This is a well-nourished, well-developed, morbidly obese patient, in no apparent distress. SKIN: Warm and dry. Bandage in place over groin, no drainage from area, mild erythema HEAD: Atraumatic. Normocephalic. EYES: Pupils equal round. Extraocular motions intact. No scleral icterus. No injection or drainage. ENT: Nose without bleeding, purulent drainage or septal hematoma; but nasal cannula in place so exam is limited. Airway patent. NECK: Supple, nontender, no meningeal signs. CARDIOVASCULAR: Regular rate. 2 out of 6 systolic ejection murmur. No gallops or rubs. RESPIRATORY: Clear to auscultation anteriorly. Breath sounds equal bilaterally. No wheezes, rales, or rhonchi. GASTROINTESTINAL: Positive bowel sounds. Abdomen soft, non-tender, nondistended. MUSCULOSKELETAL: Extremities without clubbing, cyanosis. No joint tenderness, effusion, or edema noted. No calf tenderness. NEUROLOGICAL: Awake and alert. Cranial nerves II through XII intact. Motor and sensory grossly within normal limits. Normal speech. Procedures Cardiac catheterization 02/09. (Cesilia Ortiz MD R2) A/P Assessment and Plan Patient is a 77 year old male with a past medical history significant of A.fib s /p ablation and electrocardioversion and current anticoagulation, CAD s/p PR with stent placement, CHF, DM Type II, HTN and hyperlipidemia who presents with chest discomfort and shortness of breath for approximately two hours on the day of admission. Troponin increased to 5.57 and an EKG showed ST segment depressions in lateral/junctional leads. cardiac catheterization with cardiology on Friday02/09/2018 revealing severe three-vessel CAD, scheduled for repeat coronary angiogram with consideration of CABG. Discharge Planning Pending catheterization and cardiac clearance for discharge. (Cesilia Ortiz MD R2) Attending Attestation Patient seen, examined, and discussed with resident team. I agree with assessment and management as documented and discussed with me. Pt reports some V tach while eating breakfast this morning; he reports this felt like a fluttering. No chest pain, no SOB. Await cardiac testing tomorrow. (Florinda Elliott MD) Problem List: (1) Non-STEMI (non-ST elevated myocardial infarction) ICD Codes: I21.4 - Non-ST elevation (NSTEMI) myocardial infarction Status: Acute Plan: EKG with lateral lead (V4, V5) ST depression. Repeat EKG without evidence of ST elevation or depression. Troponin DOWNTRENDIN.32 -> 5.57 --> 4.59 --> 3.22. CK-MB DOWNTRENDIN.5 -> 17.6 --> 15.9. Despite significant increase in cardiac enzymes, patient denies chest pain and associated symptoms. Per cardiology: * Xarelto held 02/06. * Started Lovenox on 02/07 (90 mg SQ q12hr) to allow for cardiac catheterization on 02/09. * Lovenox discontinued on 02/08 in preparation of cardiac catheterization on . * Placed on heparin drip, hold Xarelto (2) CAD (coronary artery disease) ICD Codes: I25.10 - Atherosclerotic heart disease of [place] coronary artery without angina pectoris Status: Chronic Plan: Patient with history of CAD and PR in 2012 s/p stent placement. * See Plan for Non-STEMI. (3) History of atrial fibrillation ICD Codes: Z86.79 - Personal history of other diseases of the circulatory system Status: Acute Plan: Patient with history of A.fib s/p ablations x3 and electrocardioversion. * Continue home meds. * HOld Xarelto * The V. tach overnight, follow-up cardiology recommendations (4) CHF (congestive heart failure) ICD Codes: I50.9 - Heart failure, unspecified Plan: Patient with history of CHF. BNP on admission 31. ECHO CONCLUSIONS 02/06: * Normal left ventricular size and wall thickness. * The left ventricular systolic function is normal with an estimated ejection fraction in the range of 60-65%. * No definite wall motion abnormalities. * Moderate mitral annular calcification. * Diffuse mild calcification of the aortic valve. (5) Hypertension ICD Codes: I10 - Essential (primary) hypertension Status: Chronic Plan: Patient with history of hypertension. * Continue home meds. (6) SATURNINO (acute kidney injury) ICD Codes: N17.9 - Acute kidney failure, unspecified Status: Resolved Plan: Resolved. 1.42 on admission. (7) Diabetes mellitus ICD Codes: E11.9 - Type 2 diabetes mellitus without complications Status: Acute Plan: Patient with history of pre-diabetes, per patient. Patient with history of diabetes, per chart. On admission, random glucose 123. * Hemoglobin A1C 5.8 * Held home meds. * Low NovoLOG Scale. (8) Hyperlipidemia ICD Codes: E78.5 - Hyperlipidemia, unspecified Status: Chronic Plan: Patient with history of hyperlipidemia. * Continue home meds. (9) Fluid, Nutrition, Electrolyte, and Prophylaxis Status: Acute Plan: Fluid: * NS 100 ml/hr while NPO. Nutrition: * Regular diet Electrolyte: * Monitor and replete as necessary. Prophylaxis: * SCDs. * Heparin drip by cardiology (Cesilia Ortiz MD R2) Problem Qualifiers (1) CAD (coronary artery disease): Qualified Codes: I25.110 - Atherosclerotic heart disease of [place] coronary artery with unstable angina pectoris (2) Hypertension: Qualified Codes: I10 - Essential (primary) hypertension (3) Hyperlipidemia: Qualified Codes: E78.2 - Mixed hyperlipidemia Cesilia Ortiz MD R2 Feb 11, 2018 12:13 Florinda Elliott MD Feb 11, 2018 21:12
--- NOTE | 2018-02-11 14:09 | HHI.FPPN ---
Addendum to progress note ADDENDUM Reason for addendum: Additonal documentation Additional information S: Nursing called to report a 4-minute episode of blurry vision for patient. This occured at 13:00 on 02/11. Pt seen and examined bedside by myself after the event. The blurry vision resolved and did not return. There were no other sx. No headache, N/V, CP/SOB, dizzyness. O: VSS, telemetry reviewed, Vtach run 15-beat from 8AM noted PE: G: NAD, AAOx3 Cardiac: RRR Resp: LFTA Neuro: cranial nerves intact, no deficits A/P: Temporary painless blurred vision in both eyes, equal Possible embolic phenomenon (carotid, cardiac) vs ocular origin vs vasovagal vs. fatigue - f/u carotid u/s - if u/s normal and event does not recur, okay to go forward with cath tomorrow Cesilia Ortiz MD R2 Feb 11, 2018 14:09
--- NOTE | 2018-02-11 15:52 | RADRPT ---
EXAM DATE/TIME: 02/11/2018 14:31 [facility] COMPARISON: No previous studies available for comparison. INDICATIONS : Amorosis fugax. MEDICAL HISTORY : Congestive heart failure. Myocardial infarction. Hypercholesterolemia. Hypertension. Atrial Fibrillat ion. Diabetes. Renal disease. SURGICAL HISTORY : Coronary artery stent. Cardiac ablation. Cardiac catheterization. ENCOUNTER: Initial ACUITY: 1 day PAIN SCORE: 0/10 LOCATION: Bilateral neck PEAK SYSTOLIC VELOCITIES (cm/sec): ICA/CCA RATIO: Right: 0.9 Left: 1.0 ICA: Right: 118 Left: 136 CCA: Right: 132 Left: 134 ECA: Right: 122 Left: 148 VERTEBRAL: Right: 91 antegrade Left: 77 antegrade Elevated flow velocities and ICA/CCA ratios have been found to correlate with increased degrees of vessel stenosis, calculated as percentage of diameter relative to a normal segment of distal ICA/CCA FINDINGS: RIGHT CAROTID: No significant stenosis is visualized. The waveforms are within normal limits. LEFT CAROTID: Mild elevated velocities throughout the left carotid arteries. The waveforms are within normal limits . VERTEBRAL ARTERIES: Antegrade flow is seen in both vertebral arteries. MISCELLANEOUS: None. CONCLUSION: 1. Mild increased velocities throughout the left carotid arteries which may reflect a mild to moderat e proximal common carotid stenosis. 2. Bilateral carotid plaque without significant additional flow-limiting stenoses. 3. Antegrade vertebral artery flow bilaterally. Rob Gamez MD on February 11, 2018 at 15:42 Board Certified Radiologist. This report was verified electronically.
[2018-02-11] MEDS: HEPARIN-D5W 25,000 U/250 ML 250 ML IV PRN (15:55)
--- NOTE | 2018-02-11 16:21 | PD.CARD.PN ---
Subjective Subjective Remarks Pt without CV complaints Objective Medications Current Medications Medications (Trade) Dose Ordered Sig/Marilyn Route Start Time Stop Time Status Last Admin (Lipitor) 40 mg HS PO 02/06/18 21:00 02/10/18 21:32 (Lasix) 20 mg DAILY PO 02/06/18 11:30 02/11/18 09:28 (Lopressor) 100 mg TID PO 02/06/18 13:00 02/11/18 13:11 (KCl) 10 meq DAILY PO 02/06/18 11:30 02/11/18 09:28 (Xarelto) 20 mg DAILY PO 02/06/18 12:00 Future Hold 02/06/18 11:57 (NS Flush) 2 ml BID IV FLUSH 02/06/18 21:00 02/11/18 09:00 (NS Flush) 2 ml UNSCH PRN IV FLUSH 02/06/18 11:15 (Nitroglycerin 2% Oint) 0.5 inch Q6HR PRN TOP 02/06/18 11:15 (Morphine Inj) 2 mg Q1HR PRN IV PUSH 02/06/18 11:15 02/09/18 16:50 (Narcan Inj) 0.4 mg UNSCH PRN IV PUSH 02/06/18 11:15 (Loraine-Colace) 1 tab BID PO 02/06/18 21:00 02/11/18 09:28 (Milk Of Magnesia Liq) 30 ml Q12H PRN PO 02/06/18 11:15 02/07/18 08:49 (Senokot) 17.2 mg Q12H PRN PO 02/06/18 11:15 (Dulcolax Supp) 10 mg DAILY PRN RECTAL 02/06/18 11:15 (Lactulose Liq) 30 ml DAILY PRN PO 02/06/18 11:15 (NovoLOG SUPPLEMENTAL SCALE) 1 ACHS SLIDING SCALE SQ 02/06/18 12:00 02/10/18 17:00 (Tikosyn) 500 mcg BID PO 02/06/18 12:00 02/11/18 09:29 (D50w (Vial) Inj) 50 ml UNSCH PRN IV PUSH 02/06/18 12:00 (Glucagon Inj) 1 mg UNSCH PRN OTHER 02/06/18 12:00 (Aspirin Chew) 81 mg DAILY CHEW 02/07/18 10:30 02/11/18 09:28 (Benadryl) 50 mg BARREL STRAIGHTENER PO 02/08/18 11:15 02/12/18 11:14 02/09/18 14:03 (Valium) 10 mg BARREL STRAIGHTENER PO 02/08/18 11:15 02/12/18 11:14 02/09/18 14:03 (Versed Inj) 1 mg BARREL STRAIGHTENER IV PUSH 02/08/18 11:15 02/12/18 11:14 (Heparin Inj) 5,000 units UNSCH PRN IV PUSH 02/09/18 22:00 (Heparin Inj) 2,500 units UNSCH PRN IV PUSH 02/09/18 22:00 02/11/18 02:34 Heparin Sodium/ Dextrose 250 ml @ 10 mls/hr TITRATE PRN IV 02/09/18 19:00 02/11/18 15:55 (Motrin) 400 mg Q4HR PRN PO 02/09/18 22:00 02/11/18 09:34 Sodium Chloride 1,000 ml @ 100 mls/hr Q10H IV 02/11/18 08:35 02/16/18 08:34 (Benadryl) 50 mg BARREL STRAIGHTENER PO 02/11/18 08:45 02/15/18 08:44 (Valium) 10 mg BARREL STRAIGHTENER PO 02/11/18 08:45 02/15/18 08:44 (Versed Inj) 1 mg BARREL STRAIGHTENER IV PUSH 02/11/18 08:45 02/15/18 08:44 Vital Signs / I&O Vital Signs Date Time Temp Pulse Resp B/P (MAP) Pulse Ox O2 Delivery O2 Flow Rate FiO2 02/11/18 14:01 82 02/11/18 13:00 72 02/11/18 12:00 76 02/11/18 11:00 97.6 78 16 117/66 (83) 95 02/11/18 11:00 84 02/11/18 10:45 16 02/11/18 10:00 90 02/11/18 09:00 90 02/11/18 08:00 80 02/11/18 07:00 78 02/11/18 07:00 98.3 87 18 137/71 (93) 96 02/11/18 06:00 107 02/11/18 05:00 73 02/11/18 04:00 70 02/11/18 03:00 98.9 77 16 113/54 (73) 96 02/11/18 03:00 72 02/11/18 02:00 77 02/11/18 01:00 78 02/11/18 00:00 74 02/11/18 00:00 98.0 70 16 134/81 (98) 97 02/10/18 23:00 65 02/10/18 22:00 68 02/10/18 21:00 66 02/10/18 20:00 68 02/10/18 20:00 98.7 68 16 128/69 (88) 94 02/10/18 19:00 70 02/10/18 18:01 74 02/10/18 17:00 68 I/O 02/10/18 02/10/18 02/10/18 02/11/18 02/11/18 02/11/18 07:00 15:00 23:00 07:00 15:00 23:00 Intake Total 480 ml 1026 ml 240 ml Output Total 1075 ml 925 ml 2100 ml Balance -595 ml 101 ml -1860 ml Intake Oral 480 ml 802 ml 240 ml IV Total 224 ml Output Urine Total 1075 ml 925 ml 2100 ml # Voids 3 # Bowel Movements 0 0 0 Physical Exam GENERAL: Well developed, well nourished. No acute distress. HEENT: Jugular venous pressure is normal. CHEST: Lungs clear to auscultation bilaterally. Unlabored respiratory effort. CARDIAC: Regular rate and rhythm without S3, S4, or murmur. ABDOMEN: Soft, nontender, no hepatosplenomegaly. Bowel sounds present. EXTREMITIES: No clubbing, cyanosis, trace edema. Laboratory Laboratory Tests Test 02/10/18 16:20 02/11/18 01:55 02/11/18 10:00 Activated Partial Thromboplast Time 42.9 SEC 37.2 SEC 41.1 SEC White Blood Count 11.3 TH/MM3 Red Blood Count 4.03 MIL/MM3 Hemoglobin 12.8 GM/DL Hematocrit 37.2 % Mean Corpuscular Volume 92.3 FL Mean Corpuscular Hemoglobin 31.7 PG Mean Corpuscular Hemoglobin Concent 34.4 % Red Cell Distribution Width 13.9 % Platelet Count 134 TH/MM3 Mean Platelet Volume 8.0 FL Blood Urea Nitrogen 16 MG/DL Creatinine 1.11 MG/DL Random Glucose 121 MG/DL Total Protein 6.5 GM/DL Albumin 3.1 GM/DL Calcium Level 8.4 MG/DL Alkaline Phosphatase 72 U/L Aspartate Amino Transf (AST/SGOT) 35 U/L Alanine Aminotransferase (ALT/SGPT) 36 U/L Total Bilirubin 0.9 MG/DL Sodium Level 140 MEQ/L Potassium Level 3.9 MEQ/L Chloride Level 103 MEQ/L Carbon Dioxide Level 32.0 MEQ/L Anion Gap 5 MEQ/L Estimat Glomerular Filtration Rate 64 ML/MIN Imaging Last 24 hours Impressions Carotid Artery Ultrasound 02/11/18 1409 Signed Impressions: Service Date/Time: Sunday, February 11, 2018 14:31 - CONCLUSION: 1. Mild increased velocities throughout the left carotid arteries which may reflect a mild to moderate proximal common carotid stenosis. 2. Bilateral carotid plaque without significant additional flow-limiting stenoses. 3. Antegrade vertebral artery flow bilaterally. Rob Gamez MD Assessment and Plan Problem List: (1) Ventricular tachycardia ICD Codes: I47.2 - Ventricular tachycardia Plan: concerning for torsade - stop Tikosyn (on BB) (2) CAD (coronary artery disease) ICD Codes: I25.10 - Atherosclerotic heart disease of [place] coronary artery without angina pectoris Status: Chronic Plan: Status post NSTEMI. Probably severe 3 vessel CAD on cath yesterday, including heavily thrombosed ostial to prox RCA, possible significant hazy ostial LAD lesion. Stable clinically. REC repeat coronary angio Thurs, depending on findings to consider CABG continue heparin drip will f/u at cath Asymptomatic, VT noted , Dr Vizcaino aware 02/11/18 (3) Hyperlipidemia ICD Codes: E78.5 - Hyperlipidemia, unspecified Status: Chronic (4) Hypertension ICD Codes: I10 - Essential (primary) hypertension Status: Chronic (5) Paroxysmal atrial flutter ICD Codes: I48.92 - Unspecified atrial flutter Status: Resolved (6) Paroxysmal atrial fibrillation ICD Codes: I48.0 - Paroxysmal atrial fibrillation Status: Chronic Problem Qualifiers (1) CAD (coronary artery disease): Qualified Codes: I25.110 - Atherosclerotic heart disease of [place] coronary artery with unstable angina pectoris (2) Hyperlipidemia: Qualified Codes: E78.2 - Mixed hyperlipidemia (3) Hypertension: Qualified Codes: I10 - Essential (primary) hypertension Tanesha Gomez MD Feb 11, 2018 16:21
[2018-02-11] MEDS: ATORVASTATIN 40 MG TAB PO SCH (20:51)
--- NOTE | 2018-02-11 21:47 | EKG ---
Date Performed: 02/11/2018 Time Performed: 08:32:12 PTAGE: 77 years EKG: Sinus rhythm ST changes are nonspecific Borderline ECG PREVIOUS TRACING : 02/07/2018 04.03 Since the previous tracing, no significant change noted DOCTOR: Ezio Levine Interpretating Date/Time 02/11/2018 21:45:21
[2018-02-12] VITALS (24 sets, daily range): BP systolic 101–151; BP diastolic 53–85; PULSE 65–94; RESP 14–20; TEMP 97.6–99.1; O2SAT 92–100
[2018-02-12] MEDS: IBUPROFEN 400 MG TAB PO PRN (00:39)
[2018-02-12] MEDS: HEPARIN SODIUM - IV 10,000 UNITS/10 ML VIAL IV PUSH PRN (01:19)
[2018-02-12 06:25] LABS: HEMATOCRIT 33.6 % (39.0-51.0); HEMOGLOBIN 11.2 GM/DL (13.0-17.0); MEAN CELL VOLUME 92.5 FL (80.0-100.0); MEAN CORPUSCULAR HEMOGLOBIN 30.8 PG (27.0-34.0); MEAN CORPUSCULAR HGB CONC 33.3 % (32.0-36.0); MEAN PLATELET VOLUME 8.6 FL (7.0-11.0); PLATELET COUNT 129 TH/MM3 (150-450); RED BLOOD COUNT 3.63 MIL/MM3 (4.50-5.90); WHITE BLOOD COUNT 10.7 TH/MM3 (4.0-11.0)
[2018-02-12 06:46] LABS: ALBUMIN 3.1 GM/DL (3.4-5.0); AST (GOT) 46 U/L (15-37); BICARBONATE 30.8 MEQ/L (21.0-32.0); BLOOD UREA NITROGEN 15 MG/DL (7-18); CALCIUM 8.4 MG/DL (8.5-10.1); CHLORIDE 104 MEQ/L (98-107); CREATININE 0.98 MG/DL (0.60-1.30); GLOMERULAR FILTRATION RATE 74 ML/MIN (>89); GLUCOSE,RANDOM 127 MG/DL (74-106); SODIUM (NA) 142 MEQ/L (136-145)
[2018-02-12 06:49] LABS: ALKALINE PHOSPHATASE 67 U/L (45-117); ALT (GPT) 52 U/L (12-78); TOTAL PROTEIN 6.1 GM/DL (6.4-8.2)
[2018-02-12] MEDS: HEPARIN-D5W 25,000 U/250 ML 250 ML IV PRN ×2 (07:37→23:44)
[2018-02-12] MEDS: INSULIN ASPART SUPPLEMENTAL SCALE SQ SCH ×4 (08:00→22:03)
[2018-02-12] MEDS: SODIUM CHLORIDE 0.9% FLUSH 10 ML FLUSH IV FLUSH SCH ×2 (09:00→21:01)
[2018-02-12] MEDS: FUROSEMIDE 20 MG TAB PO SCH (09:13)
[2018-02-12] MEDS: ASPIRIN 81 MG CHEW TAB CHEW SCH (09:13)
[2018-02-12] MEDS: POTASSIUM CHLORIDE 10 MEQ CONTROLLED RELEASE TAB PO SCH (09:14)
[2018-02-12] MEDS: METOPROLOL TARTRATE 100 MG TAB PO SCH ×3 (09:14→18:26)
[2018-02-12] MEDS: SODIUM CHLOR 0.9% 1000 ML INJ 1,000 ML IV SCH ×2 (09:17→14:35)
[2018-02-12] MEDS: DOCUSATE SODIUM 50 MG/SENNA 8.6 MG TAB PO SCH ×2 (09:18→21:00)
--- NOTE | 2018-02-12 10:17 | HHI.FPPN ---
Subjective Remarks Patient was seen and evaluated this morning. Cardiac catheterization is scheduled for today. He feels well. He denies chest discomfort/pain, shortness of breath, nausea, vomiting, diarrhea and constipation. He denies blood in stool. He denies pain associated with extensive bruising on his right leg/ groin. All questions were answered. (Fannie Calvillo MD R1) Objective Vitals Vital Signs Date Time Temp Pulse Resp B/P (MAP) Pulse Ox O2 Delivery O2 Flow Rate FiO2 02/12/18 09:00 70 02/12/18 08:00 78 02/12/18 07:37 98.0 78 14 130/70 (90) 97 02/12/18 07:00 70 02/12/18 04:05 77 02/12/18 04:00 98.0 81 20 119/66 (83) 95 02/12/18 01:39 18 02/12/18 00:04 94 02/12/18 00:00 99.1 86 20 135/75 (95) 92 02/11/18 20:04 75 02/11/18 20:00 97.3 83 20 161/87 (111) 95 02/11/18 18:00 78 02/11/18 17:00 78 02/11/18 16:00 68 02/11/18 15:00 68 02/11/18 15:00 98.8 69 18 135/79 (97) 95 02/11/18 14:01 82 02/11/18 13:00 72 02/11/18 12:00 76 02/11/18 11:00 97.6 78 16 117/66 (83) 95 02/11/18 11:00 84 I/O 02/11/18 02/11/18 02/11/18 02/12/18 02/12/18 02/12/18 07:00 15:00 23:00 07:00 15:00 23:00 Intake Total 240 ml 1022 ml Output Total 2100 ml 1500 ml 1574 ml Balance -1860 ml -478 ml -1574 ml Intake Oral 240 ml 840 ml IV Total 182 ml Output Urine Total 2100 ml 1500 ml 1574 ml # Bowel Movements 0 2 (Fannie Calvillo MD R1) Result Diagram: 02/12/18 0538 02/12/18 0538 Imaging Last 72 hours Impressions Carotid Artery Ultrasound 02/11/18 1409 Signed Impressions: Service Date/Time: Sunday, February 11, 2018 14:31 - CONCLUSION: 1. Mild increased velocities throughout the left carotid arteries which may reflect a mild to moderate proximal common carotid stenosis. 2. Bilateral carotid plaque without significant additional flow-limiting stenoses. 3. Antegrade vertebral artery flow bilaterally. Rob Gamez MD Objective Remarks GENERAL: This is a well-nourished, well-developed, morbidly obese patient, in no apparent distress. SKIN: Warm and dry. Extensive bruising over groin and proximal lower extremity on right extending medially and posteriorly. Bruising is dark purple in color. HEAD: Atraumatic. Normocephalic. EYES: Pupils equal round. Extraocular motions intact. No scleral icterus. No injection or drainage. ENT: Nose without bleeding, purulent drainage or septal hematoma; but nasal cannula in place so exam is limited. Airway patent. NECK: Supple, nontender, no meningeal signs. CARDIOVASCULAR: Regular rate. 2 out of 6 systolic ejection murmur. No gallops or rubs. RESPIRATORY: Clear to auscultation anteriorly. Breath sounds equal bilaterally. No wheezes, rales, or rhonchi. GASTROINTESTINAL: Positive bowel sounds. Abdomen soft, non-tender, nondistended. MUSCULOSKELETAL: Extremities without clubbing, cyanosis. No joint tenderness, effusion, or edema noted. No calf tenderness. NEUROLOGICAL: Awake and alert. Cranial nerves II through XII intact. Motor and sensory grossly within normal limits. Normal speech. Procedures Cardiac catheterization 02/09. (Fannie Calvillo MD R1) Urinary Catheter: No (Fannie Calvillo MD R1) Vascular Central Line Catheter: No (Fannie Calvillo MD R1) A/P Assessment and Plan Patient is a 77 year old male with a past medical history significant of A.fib s /p ablation and electrocardioversion and current anticoagulation, CAD s/p CO with stent placement, CHF, DM Type II, HTN and hyperlipidemia who presents with chest discomfort and shortness of breath for approximately two hours on the day of admission. Troponin increased to 5.57 and an EKG showed ST segment depressions in lateral/junctional leads. cardiac catheterization with cardiology on Friday02/09/2018 revealing severe three-vessel CAD, scheduled for repeat coronary angiogram on 02/12 with consideration of CABG. Discharge Planning Pending catheterization and cardiac clearance for discharge. (Fannie Calvillo MD R1) Attending Attestation Patient seen and examined, discussed with resident team. I agree with assessment and management as documented with me. Pt without new concerns To cardiac cath today. Orthostatic vitals signs demonstrate drop in blood pressure, which may explain blurry vision yesterday. Discussed the importance of changing from sit to stand slowly. (Florinda Elliott MD) Problem List: (1) Non-STEMI (non-ST elevated myocardial infarction) ICD Codes: I21.4 - Non-ST elevation (NSTEMI) myocardial infarction Status: Acute Plan: EKG with lateral lead (V4, V5) ST depression. Repeat EKG without evidence of ST elevation or depression. Troponin DOWNTRENDIN.32 -> 5.57 --> 4.59 --> 3.22. CK-MB DOWNTRENDIN.5 -> 17.6 --> 15.9. Despite significant increase in cardiac enzymes, patient denies chest pain and associated symptoms. Per cardiology: * Xarelto held 02/06. * Started Lovenox on 02/07 (90 mg SQ q12hr) to allow for cardiac catheterization on 02/09. * Lovenox discontinued on 02/08 in preparation of cardiac catheterization on . * Placed on heparin drip, hold Xarelto. (2) CAD (coronary artery disease) ICD Codes: I25.10 - Atherosclerotic heart disease of [place] coronary artery without angina pectoris Status: Chronic Plan: Patient with history of CAD and CO in 2011 s/p stent placement. * See Plan for Non-STEMI. (3) History of atrial fibrillation ICD Codes: Z86.79 - Personal history of other diseases of the circulatory system Status: Acute Plan: Patient with history of A.fib s/p ablations x3 and electrocardioversion. * Continue home meds. * Hold Xarelto. See above. (4) CHF (congestive heart failure) ICD Codes: I50.9 - Heart failure, unspecified Plan: Patient with history of CHF. BNP on admission 31. ECHO CONCLUSIONS 02/06: * Normal left ventricular size and wall thickness. * The left ventricular systolic function is normal with an estimated ejection fraction in the range of 60-65%. * No definite wall motion abnormalities. * Moderate mitral annular calcification. * Diffuse mild calcification of the aortic valve. (5) Traumatic ecchymosis of right lower leg ICD Codes: S80.11XA - Contusion of right lower leg, initial encounter Plan: Patient with extensive bruising of his grown and lower extremity on right , following cardiac catheterization on 02/09. Patient denies pain associated with bruising. Hgb drop from 12.8 to 11.2 overnight. Repeat H&H at noon. Monitor. (6) Hypertension ICD Codes: I10 - Essential (primary) hypertension Status: Chronic Plan: Patient with history of hypertension. * Continue home meds. (7) Diabetes mellitus ICD Codes: E11.9 - Type 2 diabetes mellitus without complications Status: Acute Plan: Patient with history of pre-diabetes, per patient. Patient with history of diabetes, per chart. On admission, random glucose 123. * Hemoglobin A1C 5.8 * Held home meds. * Low NovoLOG Scale. (8) Hyperlipidemia ICD Codes: E78.5 - Hyperlipidemia, unspecified Status: Chronic Plan: Patient with history of hyperlipidemia. * Continue home meds. (9) SATURNINO (acute kidney injury) ICD Codes: N17.9 - Acute kidney failure, unspecified Status: Resolved Plan: Resolved. 1.42 on admission. (10) Fluid, Nutrition, Electrolyte, and Prophylaxis Status: Acute Plan: Fluid: * NS 100 ml/hr while NPO. Nutrition: * NPO in anticipation of cardiac procedure. Electrolyte: * Monitor and replete as necessary. Prophylaxis: * SCDs. * Heparin drip per cardiology. (Fannie Calvillo MD R1) Problem Qualifiers (1) CAD (coronary artery disease): Qualified Codes: I25.10 - Atherosclerotic heart disease of [place] coronary artery without angina pectoris (2) Hypertension: Qualified Codes: I10 - Essential (primary) hypertension (3) Hyperlipidemia: Qualified Codes: E78.2 - Mixed hyperlipidemia Fannie Calvillo MD R1 Feb 12, 2018 10:17 Florinda Elliott MD Feb 12, 2018 21:20
[2018-02-12] MEDS ORDERED: HEPARIN-NS/PF FLUSH BAG 1,000 ML IV FLUSH ONE (14:35)
[2018-02-12 14:51] LABS: AUTOMATED NEUTROPHIL # 7.2 TH/MM3 (1.8-7.7); BASOPHIL # 0.1 TH/MM3 (0-0.2); BASOPHIL % 0.6 % (0.0-2.0); EOSINOPHIL # 0.2 TH/MM3 (0-0.4); EOSINOPHIL % 2.2 % (0.0-4.0); HEMOGLOBIN 11.8 GM/DL (13.0-17.0); LYMPH % 22.6 % (9.0-44.0); LYMPHOCYTE # 2.6 TH/MM3 (1.0-4.8); MEAN CELL VOLUME 92.5 FL (80.0-100.0); MEAN CORPUSCULAR HEMOGLOBIN 31.2 PG (27.0-34.0); MEAN CORPUSCULAR HGB CONC 33.7 % (32.0-36.0); MEAN PLATELET VOLUME 8.6 FL (7.0-11.0); MONO % 11.5 % (0.0-8.0); MONOCYTE # 1.3 TH/MM3 (0-0.9); NEUT % 63.1 % (16.0-70.0); PLATELET COUNT 147 TH/MM3 (150-450); RED BLOOD COUNT 3.79 MIL/MM3 (4.50-5.90); RED CELL DISTRIBUTION WIDTH 14.2 % (11.6-17.2); WHITE BLOOD COUNT 11.5 TH/MM3 (4.0-11.0)
[2018-02-12] MEDS ORDERED: HEPARIN SODIUM - IV 10,000 UNITS/10 ML VIAL ONE (15:50)
[2018-02-12] MEDS ORDERED: MIDAZOLAM HCL 2 MG/2 ML VIAL ONE (15:50)
[2018-02-12] MEDS ORDERED: HEPARIN-NS/PF FLUSH BAG 2,000 ML IV FLUSH ONE (15:53)
[2018-02-12] MEDS ORDERED: SODIUM CHLOR 0.9% 1000 ML INJ 1,000 ML IV SCH (16:45)
[2018-02-12] MEDS ORDERED: ATROPINE SULFATE 1 MG/ML VIAL IV PRN (16:45)
[2018-02-12] MEDS ORDERED: SODIUM CHLOR 0.9% 250 ML INJ 250 ML IV PRN (16:45)
[2018-02-12] MEDS ORDERED: HEPARIN SODIUM - IV 10,000 UNITS/10 ML VIAL IV PUSH PRN ×2 (17:00→23:00)
--- NOTE | 2018-02-12 17:22 | MA ---
cc: Doni Vizcaino MD, Beth A MD DATE: 02/12/2018 PROCEDURES PERFORMED: Selective coronary angiography, intravascular ultrasound imaging of the left anterior descending. DETAILS OF PROCEDURE: The patient was brought to the cardiac catheterization laboratory in a fasting state, after having signed informed consent. The right groin was prepped and draped as per policy and anesthetized with 1% lidocaine. Arterial access was obtained via the right femoral artery and a 6-Ugand[place] sheath placed. Coronary arteriography was performed using 6-[place]gand[place] progressive right catheter and 6-[place]and[place] XB 3.5 guiding catheter. Intravascular ultrasound imaging was done as described below. There were no apparent, immediate complications. CORONARY ARTERIOGRAPHY: The right coronary artery, as noted on cardiac catheterization 2 days ago, continues to have probably heavily calcified and thrombosed very proximal disease, which results in up to 95% stenosis. The left main is a fairly long vessel, which is diffusely diseased, probably up to 15% severity. The left anterior descending demonstrates a stent in its proximal portion and the stent is widely patent. At the ostium of the LAD, there continues to be a globular, somewhat hazy lesion. This is further evaluated by intravascular ultrasound imaging. The LAD gives rise to a relatively small caliber first diagonal, which is subtotally occluded at its ostium. The LAD gives rise to a medium-sized second diagonal, which may have up to 60-70% ostial stenosis. The mid to distal LAD has minimal luminal irregularities. The left circumflex is a medium-sized vessel giving rise to a large branching first obtuse marginal and small second obtuse marginal. There is somewhat eccentric, up to 70% stenosis of the proximal left circumflex after the takeoff of the large first obtuse marginal. Collaterals are seen from the left circumflex to the distal right coronary. INTRAVASCULAR ULTRASOUND IMAGING: Heparin was given, 70 units/kg. A [employer] guidewire was advanced to the distal LAD without difficulty. The region of interest, the ostium, was visualized with intravascular ultrasound imaging. Pullback of the catheter from the mid portion shows the stent in the proximal LAD to be widely patent. There is diffuse disease of the ostial to proximal LAD, which is calcified, but there is no area resulting in more than 30% diameter stenosis. The ostium of the LAD has an eccentric 30% calcified lesion. CONCLUSIONS: 1. Severe 3-vessel coronary artery disease. 2. Status post intravascular ultrasound imaging of the ostial to proximal left anterior descending, demonstrating the absence of hemodynamically significant disease. DISCUSSION: The very proximal/ostial right coronary disease would not be amenable to percutaneous coronary intervention. The patient will be referred for bypass surgery. Bypass grafts could be considered to the distal right coronary, obtuse marginal, possibly the first and second diagonals. MD HOLDEN Hussein/CARMINA , 04:41 PM , 05:21 PM [email or web address]
--- NOTE | 2018-02-12 17:26 | CATHPROC ---
QPD HIS Report Study Information Study Number Admission Scheduled Start Study Start [id number] Feb 06 2018 10:08AM 02/11/2018 Feb 12 2018 3:27PM [place] [facility] Cardiac Catheterization Admit Source Facility Department Other [facility] Physician and Clinical Staff Initial Doni Cortez Director Religious Education Jose Francisco Redmond,RN Director Religious Education Jenny Catalan,RN Recorder Roxanne Duke ,RT(R) Scrub Avtar Edmonds,RT(R) Procedures Performed Procedure Location (Site) Vessel Name Coronary Angiograms LCA Left Coronary Coronary Angiograms RCA Right Coronary IVUS Fem Art (right) Femoral Art L Heart Cath Wire insertion Fem Art (right) Femoral Art Equipment Time Window Framer Description Size Mfg Part Number Used/Scraped [id number] 16:24 [employer] CRITICAL CARE WIRE, ASAHI PROWATER 180CM 180CM Used *[id number] TRANSDUCER, TRUWAVE [id number] 15:44 MENENDEZ CHAN * Used W/STOCKCOCK *[id number] 16:33 [employer] MEDICAL VASCADE, FR6 CLOSURE SYSTEM FR 6\7 Used *[id number] *[id number] *[id number] 15:44 MEDLINE INDUSTRIES PACK, CCL CUSTOM * Used *[id number] 15:44 MEDLINE PACER PEN, SKIN DUAL W/ RULER * Used *[id number] 15:44 [place] SHEATH, FR6.5 PRELUDE 11CM FR 6.5 038ACT Used *[id number] 15:44 [employer] CO-OP MEDICAL WIRE, 3MMJ .035 180CM 180CM Used *[id number] 15:44 NAMIC MANIFOLD, 4 PORT * Used *[id number] 15:44 [employer] OMNIPAQUE, 350 MG, 150ML 150ML [id number] Used [id number] 15:44 [employer]IRCH MEDICAL BLANKET,WARM AIR CCL * Used *[id number] CATHETER, [employer] [id number] 16:10 [employer] Used IMAGING *[id number] Equipment Model, Serial, Lot Number and Expiration Data Description Model Number Serial Number Lot Number Expiration Date CATHETER, [employer] [id number] 11-26-2019 IMAGING History: Current Medications Medication Dosage/Unit Route Frequency Last Date/Time Taken Statins (any) Glypizide XARELTO History: Allergies Allergy Reaction penicillin G RASH History: Risk Factors Family History of Hypertension Dyslipidemia Previous NC Previous Heart Failure Premature CAD Yes Yes Yes Yes Yes Prior PCI Prior PCIDate Prior CABG Yes 11/08/2011 No Cerebrovascular Peripheral Artery Chronic Lung On Dialysis Diabetes Diabetes Therapy Disease Disease Disease No No No No Yes Oral History: Arrhythmias Selection Items Atrial fibrillation History: Other Disease Selection Items CAD CHF HTN Previous RF Ablation History: Other Current Smoker Method Quit Packs a Day Years Used Pack Years No Cigarettes 39 Years Ago 1 20 20 Labs Hgb (g/dl) Hct (%) WBC (l/cumm) Platelets (thousands) 11.60-17.00 35.00-51.00 4.00-11.00 150.00-450.00 11.2 33.6 10.7 129 Glucose (mg/dl) BUN (mg/dl) Creatinine (mg/dl) BUN:Creatinine (1:x) 74.00-106.00 7.00-18.00 0.50-1.30 10.00-20.00 127 15 0.9 16.7 Na (meq/l) K (meq/l) 136.00-145.00 3.50-5.10 142 3.8 Troponin I (ng/ml) CPK (u/l) CPK-MB (ng/ML) 0.02-0.05 26.00-308.00 0.50-3.60 3.22 282 15.9 Medication Medication Total Dose (Bolus/Oral) Medication Total Dosage/Unit 1% XYLOCAINE 20 mL FENTANYL 50 mcg HEPARIN 52256 units VERSED 2 mg Medications (Bolus/Oral) Medication Time Given Dosage/Unit Administered By Reason 1% XYLOCAINE 02/12/2018 4:08:51 PM 20 mL Doni Vizcaino 20 mL 1% XYLOCAINE given in lab by Doni Vizcaino in Right Groin via Subcutaneous. Ordered by Nabor Vizcainon. FENTANYL 02/12/2018 4:09:28 PM 50 mcg Nyla, Jose Francisco 50 mcg FENTANYL given in lab by Jose Francisco Redmond RN in Right Antecubital via Peripheral IV. Ordered by Doni Kirby. VERSED 02/12/2018 4:10:27 PM 2 mg Nyla, Jose Francisco 2 mg VERSED given in lab by Jose Francisco Redmond RN in Right Antecubital via Peripheral IV. Ordered by Doni Vizcaino. HEPARIN 02/12/2018 4:26:54 PM 8000 units Jose Francisco Redmond 8000 units HEPARIN given in lab by Jose Francisco Redmond RN in Right Antecubital via Peripheral IV. Ordered Doni Lee. HEPARIN 02/12/2018 4:29:23 PM 2000 units Jose Francisco Redmond 2000 units HEPARIN given in lab by Jose Francisco Redmond RN in Right Antecubital via Peripheral IV. Ordered Doni Lee. Medication (Drip) Medication Time Given Dosage/Unit Concentration/Unit Diluent (ml) Solution IV Solutions 02/12/2018 3:43:56 PM 50 mL (IV) NaCl .9 Patient arrived on IV Solutions in Right Antecubital via Peripheral IV. Pump/Drip Flow using NaCl .9. Initial Case Assessment Cardiovascular HR Rhythm NIBP Chest Pain 70 sr 156/79 0 Edema Present Skin color Skin Mild Normal Warm Dry Circulatory - Right Pulses Dorsalis Pedis Femoral 1 1 Scale (0,1,2,3,4,d) Circulatory - Left Pulses Dorsalis Pedis Femoral 1 1 Scale (0,1,2,3,4,d) Circulatory - Lower Extremities Color Lower Right Color Lower Left Normal Normal Neurological State Oriented to time-place- Alert Moves all extremities person Respiration - General Respiration Rate SpO2 (%) (B/min) 20 95 Final Case Assessment Cardiovascular HR Rhythm NIBP Chest Pain 70 sr 156/79 0 Edema Present Skin color Skin Mild Normal Warm Dry Circulatory - Right Pulses Dorsalis Pedis Femoral 1 1 Scale (0,1,2,3,4,d) Circulatory - Left Pulses Dorsalis Pedis Femoral 1 1 Scale (0,1,2,3,4,d) Circulatory - Lower Extremities Color Lower Right Color Lower Left Normal Normal Neurological State Oriented to time-place- Alert Moves all extremities person Respiration - General Respiration Rate SpO2 (%) (B/min) 20 95 Chronological Log Time Study Chronological Log 15:29:16 Patient arrived via Bed. 15:29:17 Patient Name, D.O.B, / Armband Verified By R.N. 15:43:43 Consent signed by the physician and the patient and verified by the [facility] staff. 15:43:44 Pre-op and post- op instructions given; patient acknowledges understanding of instructions. 15:43:47 Verbal Stimulation=2 Physical Stimulation=2 Airway=2 Respiration=2 TOTAL=8. (0=absent, 1=li mited, 2=present) 15:43:51 Patient has been NPO for More than 6Hrs. 15:43:51 Skin Breakdown- bruise right side chest. 15:43:52 Patient Warmer Placed on the Table. 15:43:54 Arabella Prominences Protected 15:43:55 A # 20 IV was noted in the Antecubital (right). Grade = 0 15:43:55 A # 20 IV was noted in the Hand (right). Grade = 0 15:43:56 Patient arrived on IV Solutions in Right Antecubital via Peripheral IV. Pump/Drip Flow usin g NaCl .9. 15:43:57 History and physical on the chart or being dictated. Assessment: Initial Case, HR=70 BPM, Rhythm=sr, EXUB=091/79 mmhg, Chest Pain=0, Edema=Mild, Col or=Normal, Skin = Warm, Dry Right Pulses: Aldo Ped=1, Femoral=1 Left Pulses: Aldo Ped=1, Femoral=1 15:44:00 Lower Right Extremities: Color=Normal Lower Left Extremities: Color=Normal Neurological: State=Alert, Ox3, ORTEGA Respiration: Resp=20 B/min, SpO2=95 % Vitals capture started with the following parameters, Patient=Adult, Interval=5 min, Initial Pr osswel=746 mmHg, 15:46:25 Deflation Rate=5 mmHg, Cuff placed on Right Arm 15:47:05 HR=73 bpm, CFYL=945/72 mmhg, SpO2=94.0 %, Pain=0, Vidya=8, Burgess=2 15:49:04 Reference ECG taken 15:50:09 Bilateral groins prepped with 2% chlorhexidine, and draped after a 3 minute waiting time. 15:52:07 HR=70 bpm, IZAW=066/82 mmhg, SpO2=94.0 %, Pain=0, Vidya=8, Burgess=2 15:57:06 HR=71 bpm, KEGS=927/77 mmhg, SpO2=95.0 %, Pain=0, Vidya=8, Burgess=2 15:58:55 Pressure channel 1 zeroed. 16:02:07 HR=71 bpm, PTTR=917/79 mmhg, SpO2=95.0 %, Pain=0, Vidya=8, Burgess=2 16:06:00 MD arrived. 16:07:10 HR=72 bpm, IQRP=341/66 mmhg, SpO2=96.0 %, Pain=0, Vidya=8, Burgess=2 Time Out. Correct patient, correct procedure, correct physician, power injector not loaded with contrast with surgical 16:07:51 team present. Time Out Concurred by MD and individual staff in procedure. 16:08:12 Case Start 16:08:51 20 mL 1% XYLOCAINE given in lab by Doni Vizcaino in Right Groin via Subcutaneous. Ordered by Doni Vizcaino. 16:09:28 50 mcg FENTANYL given in lab by Jose Francisco Redmond, RN in Right Antecubital via Peripheral IV. Or dered by Doni Vizcaino. 16:10:27 2 mg VERSED given in lab by Jose Francisco Redmond RN in Right Antecubital via Peripheral IV. Ordere d by Doni Vizcaino. 16:12:03 HR=70 bpm, AWRF=350/73 mmhg, SpO2=95.0 %, Resp=18 B/min, Pain=0, Vidya=8, Burgess=2 16:15:38 Access site was Right Femoral Artery. 16:17:06 HR=68 bpm, LRLD=006/69 mmhg, SpO2=92.0 %, Pain=0, Vidya=8, Burgess=2 16:18:25 A SHEATH, FR6.5 PRELUDE 11CM FR 6.5 was advanced into the Fem Art (right) using the Percuta neous technique. A 3DRC INFINITI CATHETER FR 6 was advanced over a wire. OMNIPAQUE, 350 MG, 150ML 150ML was used for 16:18:31 injections. 16:20:17 The RCA was injected and visualized at various angles. OMNIPAQUE, 350 MG, 150ML 150ML used . After removing the current catheter a XB 3.5 GUIDE CATHETER FR 6 was advanced over a WIRE, 3MMJ .035 180CM 16:21:02 180CM. 16:22:05 HR=67 bpm, JYYK=001/71 mmhg, SpO2=93.0 %, Resp=17 B/min, Pain=0, Vidya=8, Burgess=2 16:22:53 The LCA was injected and visualized at various angles. OMNIPAQUE, 350 MG, 150ML 150ML used . Recorded Pressure: Ao, HR=69, Condition=Condition 1 16:23:35 (Aorta) Ao 124/64/86 16:26:54 8000 units HEPARIN given in lab by Jose Francisco Redmond RN in Right Antecubital via Peripheral IV. Ordered by Doni Vizcaino. 16:27:06 HR=74 bpm, JLNB=513/74 mmhg, SpO2=93.0 %, Pain=0, Vidya=8, Burgess=2 16:27:46 An CATHETER, [employer] IMAGING was advanced through the lesion. Images saved onto IVUS hard drive 16:27:50 A WIRE, ASALooklet PROWATER 180CM 180CM was inserted via Fem Art (right). 16:29:23 2000 units HEPARIN given in lab by Jose Francisco Redmond RN in Right Antecubital via Peripheral IV. Ordered by Doni Vizcaino. 16:29:26 IVUS in progress using CATHETER, [employer] IMAGING 16:30:54 IVUS catheter removed 16:30:59 Wire removed 16:31:08 Catheter was removed 16:32:05 Case End 16:32:07 HR=76 bpm, WASG=315/72 mmhg, SpO2=94.0 %, Pain=0, Vidya=8, Burgess=2 16:32:55 VASCADE, FR6 CLOSURE SYSTEM FR 6\7 placement in the Fem Art (right) Assessment: Final Case, HR=70 BPM, Rhythm=sr, MEUS=332/79 mmhg, Chest Pain=0, Edema=Mild, Color =Normal, Skin = Warm, Dry Right Pulses: Aldo Ped=1, Femoral=1 Left Pulses: Aldo Ped=1, Femoral=1 16:33:36 Lower Right Extremities: Color=Normal Lower Left Extremities: Color=Normal Neurological: State=Alert, Ox3, ROTEGA Respiration: Resp=20 B/min, SpO2=95 % 16:33:49 Catheter(s) removed without difficulty 16:33:54 Sterile dressing applied to site 16:33:55 No case complications noted. 16:33:58 Cine recording checked. 16:33:58 Bedside Report will be given. 16:34:04 A Left Heart Cath was performed. 16:37:08 HR=69 bpm, DCBE=559/80 mmhg, SpO2=97.0 %, Resp=8 B/min, Pain=0, Vidya=8, Burgess=2 16:42:07 HR=70 bpm, ZSGK=167/78 mmhg, SpO2=94.0 %, Pain=0, Vidya=8, Burgess=2 16:47:08 HR=71 bpm, UMWQ=209/87 mmhg, SpO2=95.0 %, Pain=0, Vidya=8, Burgess=2 16:48:02 vascade not deployed. Holding manual pressure 16:48:24 Sheath removed; pressure applied to access site. 16:52:11 HR=70 bpm, WVVK=157/86 mmhg, SpO2=97.0 %, Pain=0, Vidya=8, Burgess=2 16:57:10 HR=68 bpm, EFKA=147/78 mmhg, SpO2=96.0 %, Resp=15 B/min, Pain=0, Vidya=8, Burgess=2 17:02:13 VBVL=046/70 mmhg, SpO2=97.0 %, Resp=16 B/min, Pain=0, Vidya=8, Burgess=2 17:05:57 Still applying pressure to site. 17:07:14 HR=70 bpm, UBAY=118/80 mmhg, SpO2=96.0 % 17:12:14 HR=70 bpm, JAXA=751/76 mmhg, SpO2=97.0 %, Pain=0, Vidya=8, Burgess=2 17:17:15 HR=69 bpm, VBVF=283/75 mmhg, SpO2=97.0 %, Pain=0, Vidya=8, Burgess=2 17:22:12 Vitals capture stopped. 17:22:19 Sterile dressing applied to site 17:25:15 Patient moved to stretcher End Study - Contrast Media Used In Study Contrast Total Opened (mL) Total Used (mL) Total Wasted (mL) Omnipaque 35 35 0 End Study - Maximum Contrast Load Max Contrast Load (mL) 827.8 End Study - Radiation Exposure Fluoro Time (minutes) 3.9 End Study - Sheaths Sheaths Pulled By Sheath Hold Time (min) Avtar Edmonds 40 End Study - Patient Disposition Complications Transferred To Interventional Outcome No Critical Care Bed No attempt made
[2018-02-12] MEDS ORDERED: IOHEXOL 350 MG/ML 50 ML BTL (for Cath Lab) OTHER ONE (18:12)
[2018-02-12] MEDS: MORPHINE SULFATE 4 MG/ML INJ IV PUSH PRN (21:00)
[2018-02-12] MEDS: ATORVASTATIN 40 MG TAB PO SCH (21:01)
[2018-02-12 21:57] LABS: HEMATOCRIT 30.3 % (39.0-51.0); MEAN CELL VOLUME 92.8 FL (80.0-100.0); MEAN CORPUSCULAR HEMOGLOBIN 30.7 PG (27.0-34.0); MEAN CORPUSCULAR HGB CONC 33.1 % (32.0-36.0); MEAN PLATELET VOLUME 8.8 FL (7.0-11.0); PLATELET COUNT 143 TH/MM3 (150-450); RED BLOOD COUNT 3.27 MIL/MM3 (4.50-5.90); WHITE BLOOD COUNT 11.2 TH/MM3 (4.0-11.0)
[2018-02-12 22:00] LABS: INTERNATIONAL NORMALIZED RATIO 1.1 RATIO; PROTHROMBIN TIME - PATIENT 10.9 SEC (9.8-11.6)
[2018-02-12] MEDS ORDERED: HEPARIN SODIUM - IV 10,000 UNITS/10 ML VIAL IV PUSH ONE (23:00)
[2018-02-13] VITALS (27 sets, daily range): BP systolic 103–141; BP diastolic 60–75; PULSE 73–100; RESP 16–18; TEMP 97.8–98.6; O2SAT 92–100
[2018-02-13 03:22] LABS: HEMATOCRIT 28.8 % (39.0-51.0); HEMOGLOBIN 9.7 GM/DL (13.0-17.0); MEAN CELL VOLUME 92.5 FL (80.0-100.0); MEAN CORPUSCULAR HEMOGLOBIN 31.1 PG (27.0-34.0); MEAN CORPUSCULAR HGB CONC 33.6 % (32.0-36.0); MEAN PLATELET VOLUME 8.4 FL (7.0-11.0); PLATELET COUNT 134 TH/MM3 (150-450); RED BLOOD COUNT 3.11 MIL/MM3 (4.50-5.90); RED CELL DISTRIBUTION WIDTH 14.1 % (11.6-17.2); WHITE BLOOD COUNT 13.2 TH/MM3 (4.0-11.0)
[2018-02-13 04:08] LABS: BICARBONATE 28.4 MEQ/L (21.0-32.0); CREATININE 0.98 MG/DL (0.60-1.30)
[2018-02-13] MEDS: INSULIN ASPART SUPPLEMENTAL SCALE SQ SCH ×4 (08:42→20:28)
[2018-02-13] MEDS: METOPROLOL TARTRATE 100 MG TAB PO SCH ×3 (08:43→17:32)
[2018-02-13] MEDS: ASPIRIN 81 MG CHEW TAB CHEW SCH (08:43)
[2018-02-13] MEDS: POTASSIUM CHLORIDE 10 MEQ CONTROLLED RELEASE TAB PO SCH (08:43)
[2018-02-13] MEDS: DOCUSATE SODIUM 50 MG/SENNA 8.6 MG TAB PO SCH ×2 (08:43→20:25)
[2018-02-13] MEDS: FUROSEMIDE 20 MG TAB PO SCH (08:43)
[2018-02-13] MEDS: SODIUM CHLORIDE 0.9% FLUSH 10 ML FLUSH IV FLUSH SCH ×2 (08:44→20:26)
[2018-02-13] MEDS: SODIUM CHLOR 0.9% 1000 ML INJ 1,000 ML IV SCH (08:46)
[2018-02-13] MEDS: HEPARIN SODIUM - IV 10,000 UNITS/10 ML VIAL IV PUSH PRN ×2 (08:55→17:37)
[2018-02-13] MEDS ORDERED: SODIUM CHLORIDE 0.9% FLUSH 10 ML FLUSH IV FLUSH PRN (10:30)
[2018-02-13] MEDS ORDERED: CHLORHEXIDINE GLUCONATE 4% SOLN 120 ML BTL TOPICAL SCH (10:30)
[2018-02-13] MEDS ORDERED: DEXTROSE 50% IN WATER 50 ML VIAL(D50) IV PUSH PRN (10:30)
[2018-02-13] MEDS ORDERED: PAPAVERINE INJ 60 MG, NITROGLYCERIN INJ 100 MCG, DILTIAZEM INJ 100 MG in SODIUM CHLORID... IRRIGATION SCH (10:30)
[2018-02-13] MEDS ORDERED: METOPROLOL TARTRATE 25 MG TAB PO SCH (10:30)
[2018-02-13] MEDS ORDERED: VANCOMYCIN INJ 1,750 MG in SODIUM CHLORID 0.9% 500 ML INJ 500 ML IV SCH (10:30)
[2018-02-13] MEDS ORDERED: VANCOMYCIN INJ 1,000 MG in SODIUM CHLORIDE 0.9% IRR BTL 1,000 ML IRRIGATION SCH (10:30)
[2018-02-13] MEDS ORDERED: INSULIN REGULAR (IV INFUSION) 100 UNITS in SODIUM CHLORIDE 0.9% INJ 99 ML IV PRN (10:30)
--- NOTE | 2018-02-13 11:15 | PD.CAR.PN ---
CVT Progress Note Subjective/Hospital Course: pt seen and evaluated, full consult to follow sts discussed with pt RISK SCORES About the STS Risk Calculator Procedure: CAB Only Risk of Mortality: 5.279% Morbidity or Mortality: 31.634% Long Length of Stay: 20.812% Short Length of Stay: 12.593% Permanent Stroke: 1.469% Prolonged Ventilation: 23.569% DSW Infection: 1.814% Renal Failure: 11.546% Reoperation: 9.396% Objective: Vital Signs Date Time Temp Pulse Resp B/P (MAP) Pulse Ox O2 Delivery O2 Flow Rate FiO2 02/13/18 08:04 98.4 97 18 141/75 (97) 97 02/13/18 06:00 90 02/13/18 05:00 90 02/13/18 04:28 98.2 92 16 134/70 (91) 94 02/13/18 04:00 96 02/13/18 03:00 100 02/13/18 02:00 88 02/13/18 01:00 92 02/13/18 00:04 85 02/13/18 00:00 98.5 86 16 128/66 (86) 100 Automatic Cuff 02/12/18 23:00 80 02/12/18 22:00 78 02/12/18 21:00 78 02/12/18 20:56 98.4 80 16 122/59 (80) 100 02/12/18 20:09 77 02/12/18 19:00 70 02/12/18 18:00 68 02/12/18 17:00 66 02/12/18 15:37 97.6 66 14 101/53 (69) 96 02/12/18 15:00 66 02/12/18 14:00 78 02/12/18 13:00 78 02/12/18 12:00 72 02/12/18 11:25 97.6 71 14 151/85 (107) 97 126/74 (91) 117/69 (85) Labs: Laboratory Tests Test 02/13/18 03:07 02/13/18 07:25 White Blood Count 13.2 TH/MM3 (4.0-11.0) Red Blood Count 3.11 MIL/MM3 (4.50-5.90) Hemoglobin 9.7 GM/DL (13.0-17.0) Hematocrit 28.8 % (39.0-51.0) Mean Corpuscular Volume 92.5 FL (80.0-100.0) Mean Corpuscular Hemoglobin 31.1 PG (27.0-34.0) Mean Corpuscular Hemoglobin Concent 33.6 % (32.0-36.0) Red Cell Distribution Width 14.1 % (11.6-17.2) Platelet Count 134 TH/MM3 (150-450) Mean Platelet Volume 8.4 FL (7.0-11.0) Activated Partial Thromboplast Time 38.5 SEC (24.3-30.1) 33.8 SEC (24.3-30.1) Blood Urea Nitrogen 18 MG/DL (7-18) Creatinine 0.98 MG/DL (0.60-1.30) Random Glucose 127 MG/DL (74-106) Calcium Level 8.0 MG/DL (8.5-10.1) Sodium Level 140 MEQ/L (136-145) Potassium Level 3.8 MEQ/L (3.5-5.1) Chloride Level 104 MEQ/L (98-107) Carbon Dioxide Level 28.4 MEQ/L (21.0-32.0) Anion Gap 8 MEQ/L (5-15) Estimat Glomerular Filtration Rate 74 ML/MIN (>89) Result Diagram: 02/13/1830602/13/18306 (1) Ventricular tachycardia Plan: concerning for torsade - stop Tikosyn (on BB) (2) Hyperlipidemia (3) Hypertension (4) Paroxysmal atrial flutter (5) Paroxysmal atrial fibrillation Problem Qualifiers (1) Hyperlipidemia: Qualified Codes: E78.2 - Mixed hyperlipidemia (2) Hypertension: Qualified Codes: I10 - Essential (primary) hypertension Janeen Goel Feb 13, 2018 11:15
--- NOTE | 2018-02-13 11:19 | HHI.FPPN ---
Subjective Remarks Examined bedside this morning. Patient had coronary angiogram repeat yesterday on 02/11. He states that he continues to deny any chest pain/shortness of breath /dizziness. There have been no acute events overnight. He denies any further palpitations or blurry vision. (Cesilia Ortiz MD R2) Objective Vitals Vital Signs Date Time Temp Pulse Resp B/P (MAP) Pulse Ox O2 Delivery O2 Flow Rate FiO2 02/13/18 08:04 98.4 97 18 141/75 (97) 97 02/13/18 06:00 90 02/13/18 05:00 90 02/13/18 04:28 98.2 92 16 134/70 (91) 94 02/13/18 04:00 96 02/13/18 03:00 100 02/13/18 02:00 88 02/13/18 01:00 92 02/13/18 00:04 85 02/13/18 00:00 98.5 86 16 128/66 (86) 100 Automatic Cuff 02/12/18 23:00 80 02/12/18 22:00 78 02/12/18 21:00 78 02/12/18 20:56 98.4 80 16 122/59 (80) 100 02/12/18 20:09 77 02/12/18 19:00 70 02/12/18 18:00 68 02/12/18 17:00 66 02/12/18 15:37 97.6 66 14 101/53 (69) 96 02/12/18 15:00 66 02/12/18 14:00 78 02/12/18 13:00 78 02/12/18 12:00 72 02/12/18 11:25 97.6 71 14 151/85 (107) 97 126/74 (91) 117/69 (85) I/O 02/12/18 02/12/18 02/12/18 02/13/18 02/13/18 02/13/18 07:00 15:00 23:00 07:00 15:00 23:00 Intake Total 0 ml 240 ml Output Total 1574 ml 600 ml 900 ml Balance -1574 ml -600 ml -660 ml Intake Oral 0 ml 240 ml Output Urine Total 1574 ml 600 ml 900 ml # Bowel Movements 2 (Cesilia Ortiz MD R2) Result Diagram: 02/13/1830602/13/18306 Objective Remarks GENERAL: This is a well-nourished, well-developed, morbidly obese patient, in no apparent distress. SKIN: Warm and dry. Extensive bruising over groin and proximal lower extremity on right extending medially and posteriorly. Bruising is dark purple in color with yellow components today. Skin on right thigh is swollen and taut with further bruising from yesterday HEAD: Atraumatic. Normocephalic. EYES: Pupils equal round. Extraocular motions intact. No scleral icterus. No injection or drainage. ENT: Nose without bleeding, purulent drainage or septal hematoma; but nasal cannula in place so exam is limited. Airway patent. NECK: Supple, nontender, no meningeal signs. CARDIOVASCULAR: Regular rate. 2 out of 6 systolic ejection murmur. No gallops or rubs. RESPIRATORY: Clear to auscultation anteriorly. Breath sounds equal bilaterally. No wheezes, rales, or rhonchi. GASTROINTESTINAL: Positive bowel sounds. Abdomen soft, non-tender, nondistended. MUSCULOSKELETAL: Extremities without clubbing, cyanosis. No joint tenderness, effusion, or edema noted. No calf tenderness. NEUROLOGICAL: Awake and alert. Cranial nerves II through XII intact. Motor and sensory grossly within normal limits. Normal speech. Procedures Cardiac catheterization 02/09. (Cesilia Ortiz MD R2) A/P Assessment and Plan Patient is a 77 year old male with a past medical history significant of A.fib s /p ablation and electrocardioversion and current anticoagulation, CAD s/p SD with stent placement, CHF, DM Type II, HTN and hyperlipidemia who presents with chest discomfort and shortness of breath for approximately two hours on the day of admission. Troponin increased to 5.57 and an EKG showed ST segment depressions in lateral/junctional leads. cardiac catheterization with cardiology on Friday02/09/2018 revealing severe three-vessel CAD, repeat coronary angiogram on 02/12 for continues to show severe three-vessel CAD. Not amenable to PCI. Patient will be referred for bypass surgery Discharge Planning Pending cardiac clearance for discharge, complication of V. tach. Decision on whether to do bypass surgery inpatient versus outpatient (Cesilia Ortiz MD R2) Attending Attestation Patient seen and examined, discussed with resident team. I agree with assessment and management as documented and discussed with me. Pt without complaints. is at bedside. He recently completed PFTs, in anticipation of CABG on Friday. He denies pain in the bruising on his right thigh/groin. (Florinda Elliott MD) Problem List: (1) Non-STEMI (non-ST elevated myocardial infarction) ICD Codes: I21.4 - Non-ST elevation (NSTEMI) myocardial infarction Status: Acute Plan: EKG with lateral lead (V4, V5) ST depression. Repeat EKG without evidence of ST elevation or depression. Troponin DOWNTRENDIN.32 -> 5.57 --> 4.59 --> 3.22. CK-MB DOWNTRENDIN.5 -> 17.6 --> 15.9. Despite significant increase in cardiac enzymes, patient denies chest pain and associated symptoms. Severe 3 vessel arterial disease, scheduling for bypass, and not amenable for PCI Per cardiology: * Xarelto held 02/06. * Placed on heparin drip, hold Xarelto. (2) History of atrial fibrillation ICD Codes: Z86.79 - Personal history of other diseases of the circulatory system Status: Acute Plan: Patient with history of A.fib s/p ablations x3 and electrocardioversion. Episodes of V. tach on 02/11, asymptomatic (1 episode of flutter on 02/11) * Continue recommendations per cardia (3) CHF (congestive heart failure) ICD Codes: I50.9 - Heart failure, unspecified Plan: Patient with history of CHF. BNP on admission 31. ECHO CONCLUSIONS 02/06: * Normal left ventricular size and wall thickness. * The left ventricular systolic function is normal with an estimated ejection fraction in the range of 60-65%. * No definite wall motion abnormalities. * Moderate mitral annular calcification. * Diffuse mild calcification of the aortic valve. (4) Traumatic ecchymosis of right lower leg ICD Codes: S80.11XA - Contusion of right lower leg, initial encounter Plan: Patient with extensive bruising of his grown and lower extremity on right , following cardiac catheterization on 02/09. Bruising has extended with additional cath on 02/12 Patient denies pain associated with bruising. Hgb drop at 9.7 today from 10 yesterday afternoon. Repeat H&H at noon. Monitor. We will transfuse for hemoglobin less than 8.0 (5) Hypertension ICD Codes: I10 - Essential (primary) hypertension Status: Chronic Plan: Patient with history of hypertension. * Continue home meds. (6) Diabetes mellitus ICD Codes: E11.9 - Type 2 diabetes mellitus without complications Status: Acute Plan: Patient with history of pre-diabetes, per patient. Patient with history of diabetes, per chart. On admission, random glucose 123. * Hemoglobin A1C 5.8 * Held home meds. * Low NovoLOG Scale. (7) Hyperlipidemia ICD Codes: E78.5 - Hyperlipidemia, unspecified Status: Chronic Plan: Patient with history of hyperlipidemia. * Continue home meds. (8) SATURNINO (acute kidney injury) ICD Codes: N17.9 - Acute kidney failure, unspecified Status: Resolved Plan: Resolved. 1.42 on admission. (9) Fluid, Nutrition, Electrolyte, and Prophylaxis Status: Acute Plan: Fluid: * Encourage PO fluids Nutrition: * Heart healthy diet Electrolyte: * Monitor and replete as necessary. Prophylaxis: * SCDs. * Heparin drip per cardiology. (Cesilia Ortiz MD R2) Problem Qualifiers (1) Hypertension: Qualified Codes: I10 - Essential (primary) hypertension (2) Hyperlipidemia: Qualified Codes: E78.2 - Mixed hyperlipidemia Cesilia Ortiz MD R2 Feb 13, 2018 11:19 Florinda Elliott MD Feb 13, 2018 15:45
--- NOTE | 2018-02-13 12:04 | MB ---
cc: Janeen Goel Cary H MD DATE: 02/13/2018 HISTORY OF PRESENT ILLNESS: This is a 77-year-old patient of Dr. Tanesha Gomez and Dr. Alvin Mcdermott. The patient presented with a non-ST segment IA. He was admitted on the 02/06/2018. Apparently woke up early a.m. He apparently goes to bed very late about 2 a.m. and about 4 a.m., he woke up with significant heartburn, which persisted. He went to check his blood pressure, which was over 200 systolic, so his brought him into the emergency room. Pain was also moderate to severe substernal into the left chest, nonradiating. He has a prior history of coronary artery disease with IA and stent to the LAD 10/2011. Patient initially went to the [facility] on 02/09/2018 and was found to have severe 3-vessel disease also heavily thrombosed ostial to the proximal right coronary artery, questionable lesion at the ostium of the LAD. EF is 65. The decision was to place the patient on anticoagulation for 2-3 days and relook of the right coronary artery and possibly perform intravascular ultrasound imaging of the LAD. The patient developed a right groin hematoma post and then went back on the 02/12/2018 after being on heparin for 2 days. The left main had about a 15% stenosis, and a widely patent stent in the LAD. The second diagonal had a 60-70% ostial stenosis. The left circumflex had a 70% stenosis. There were collaterals from the left circumflex to the distal right. The RCA was 95% occluded. We were consulted to evaluate for coronary artery bypass grafting. PAST MEDICAL HISTORY: Includes atrial fibrillation with prior ablation [address] Franz. He is on Xarelto at home for that. He has since been off the Xarelto since the 02/05/2018. He is also on Tikosyn which his last dose was on 02/05/2018. History of prior IA in 2011, CHF, hyperlipidemia, hypertension, morbid obesity, peripheral neuropathy, peripheral arterial disease, tremors, renal insufficiency, history of aortic stenosis; however, the echocardiogram is showing no evidence of any aortic involvement, but this will be evaluated also by Dr. Campos. PAST SURGICAL HISTORY: Include cardiac catheterization, ablation, stent to the LAD, left knee surgery for removal of a jesse wire many years ago, pilonidal cyst. ALLERGIES: INCLUDE PENICILLIN. HOME MEDICATIONS: Include Xarelto, Tikosyn, Atorvastatin, metoprolol, potassium, Lasix and glipizide. FAMILY HISTORY: Mother from breast cancer. Father following ulcer surgery, had apparently a cardiac arrest. SOCIAL HISTORY: The patient is and has 4 children. Retired from [employer]. Smoked for about 25 years, 1 pack, quit at age 38. No alcohol. Somewhat sedentary. REVIEW OF SYSTEMS: As above in the HPI, other 12-systems unremarkable. PHYSICAL EXAMINATION: VITAL SIGNS: Blood pressure 140/70, heart rate of 90, afebrile. GENERAL: The patient is awake and alert in no acute distress. HEENT: Head is normocephalic, atraumatic. Pupils are equal and reactive. Oral mucosa pink and moist. NECK: Supple. No JVD. CARDIOVASCULAR: Heart sounds S1, S2. Regular rate and rhythm. There is a grade 2/6 systolic murmur best heard over the right sternal border. LUNGS: Clear to auscultation. No wheezes, rales or rhonchi. ABDOMEN: Obese, soft, nontender. He has a large pannus. He has got some extensive ecchymosis to the right groin area with a hematoma, which is improving. EXTREMITIES: Reveal trace edema. He has got Doppler pulses more brisk on the right versus the left. LABORATORY DATA: Shows hemoglobin 9.7, hematocrit of 28. White cell count of 13, platelet count of 134. Sodium 140, potassium 3.8, BUN of 18, creatinine 0.98. Hemoglobin A1c 5.8. Troponin was peaked at 5.57. Triglycerides 193, cholesterol 133, LDL 57, HDL 37. INR last 1.1. Currently, he is on heparin drip, aspirin, statin, and metoprolol. Carotid ultrasound just showed some mild increased velocities on the internal carotid arteries. No significant stenosis. Chest x-ray, some minimal parenchymal changes left base. IMPRESSION/PLAN: This is a 77-year-old male with a non-ST segment myocardial infarction, history of prior myocardial infarction and stent to the left anterior descending in 2011, now with disease to the diagonal, circumflex and right coronary artery. Status post heart catheterization x 2 after the patient was found heavily thrombosed ostial to the proximal right coronary artery was treated with heparin drip for 2 days and then taken back to the [facility]. At this time, the cardiac films will be evaluated by Dr. Argenis Campos. Also, the echo will be reviewed again. There was some question of aortic stenosis. Ejection fraction is normal. Procedures, alternatives and risks have been discussed with the patient. STS data discussed with the patient at 5.279 risk of mortality. He also has a fairly large right groin hematoma, which we will need to continue to monitor his hemoglobin, which has dropped since his admission from 12.8 to 9.7. Further planning per Dr. Campos. Possible surgery tentatively scheduled for the 02/16/2018. Janeen Goel [facility] Argenis Campos MD JRT/DL , 11:25 AM , 12:02 PM
[2018-02-13 16:07] LABS: BILIRUBIN, URINE NEG (NEG); BLOOD, URINE NEG (NEG); GLUCOSE,URINE NEG (NEG); HYALINE CAST, URINE 10 /lpf (RARE); KETONE, URINE NEG (NEG); MUCUS URINE FEW /lpf (OCC); NITRITE,URINE NEG (NEG); PH, URINE 5.5 (5.0-8.5); URINE COLOR YELLOW (YELLW/STRAW); URINE LEUKOCYTE ESTERASE NEG (NEG)
[2018-02-13 16:51] LABS: HEMATOCRIT 27.9 % (39.0-51.0); HEMOGLOBIN 9.2 GM/DL (13.0-17.0)
--- NOTE | 2018-02-13 16:53 | PD.CARD.PN ---
Subjective Subjective Remarks Pt without CV complaints Objective Medications Current Medications Medications (Trade) Dose Ordered Sig/Marilyn Route Start Time Stop Time Status Last Admin (Lipitor) 40 mg HS PO 02/06/18 21:00 02/12/18 21:01 (Lasix) 20 mg DAILY PO 02/06/18 11:30 02/13/18 08:43 (Lopressor) 100 mg TID PO 02/06/18 13:00 02/13/18 12:45 (KCl) 10 meq DAILY PO 02/06/18 11:30 02/13/18 08:43 (Xarelto) 20 mg DAILY PO 02/06/18 12:00 Future Hold 02/06/18 11:57 (Nitroglycerin 2% Oint) 0.5 inch Q6HR PRN TOP 02/06/18 11:15 (Morphine Inj) 2 mg Q1HR PRN IV PUSH 02/06/18 11:15 02/12/18 21:00 (Narcan Inj) 0.4 mg UNSCH PRN IV PUSH 02/06/18 11:15 (Loraine-Colace) 1 tab BID PO 02/06/18 21:00 02/13/18 08:43 (Milk Of Magnesia Liq) 30 ml Q12H PRN PO 02/06/18 11:15 02/07/18 08:49 (Senokot) 17.2 mg Q12H PRN PO 02/06/18 11:15 (Dulcolax Supp) 10 mg DAILY PRN RECTAL 02/06/18 11:15 (Lactulose Liq) 30 ml DAILY PRN PO 02/06/18 11:15 (NovoLOG SUPPLEMENTAL SCALE) 1 ACHS SLIDING SCALE SQ 02/06/18 12:00 02/13/18 12:45 (D50w (Vial) Inj) 50 ml UNSCH PRN IV PUSH 02/06/18 12:00 (Glucagon Inj) 1 mg UNSCH PRN OTHER 02/06/18 12:00 (Aspirin Chew) 81 mg DAILY CHEW 02/07/18 10:30 02/13/18 08:43 (Motrin) 400 mg Q4HR PRN PO 02/09/18 22:00 02/12/18 00:39 (Benadryl) 50 mg CLERICAL AIDE PO 02/11/18 08:45 02/15/18 08:44 02/12/18 14:10 (Valium) 10 mg CLERICAL AIDE PO 02/11/18 08:45 02/15/18 08:44 02/12/18 14:10 (Versed Inj) 1 mg CLERICAL AIDE IV PUSH 02/11/18 08:45 02/15/18 08:44 (Atropine Inj) 0.5 mg UNSCH PRN IV 02/12/18 16:45 (Heparin Inj) 2,500 units UNSCH PRN IV PUSH 02/12/18 23:00 02/13/18 08:55 Heparin Sodium/ Dextrose 250 ml @ 10 mls/hr TITRATE PRN IV 02/12/18 23:00 02/12/18 23:44 (Heparin Inj) 5,000 units UNSCH PRN IV PUSH 02/12/18 17:00 (NS Flush) 2 ml BID IV FLUSH 02/13/18 21:00 (NS Flush) 2 ml UNSCH PRN IV FLUSH 02/13/18 10:30 Papaverine HCl 60 mg/Nitroglycerin 100 mcg/Diltiazem HCl 100 mg/Sodium Chloride 100 ml @ 0 mls/hr CLERICAL AIDE IRRIGATION 02/13/18 10:30 02/20/18 10:29 Vancomycin HCl 1000 mg/Sodium Chloride 1,000 ml @ 0 mls/hr CLERICAL AIDE IRRIGATION 02/13/18 10:30 02/20/18 10:29 Vancomycin HCl 1750 mg/Sodium Chloride 517.5 ml @ 258.75 mls/ hr CLERICAL AIDE IV 02/13/18 10:30 02/20/18 10:29 (Lopressor) 12.5 mg CLERICAL AIDE PO 02/13/18 10:30 02/20/18 10:29 (Hibiclens 4% Top Soln) 1 applic CLERICAL AIDE TOPICAL 02/13/18 10:30 02/20/18 10:29 Insulin Human Regular 100 units/ Sodium Chloride 100 ml @ 3 mls/hr TITRATE PRN IV 02/13/18 10:30 02/20/18 10:29 (D50w (Vial) Inj) 50 ml UNSCH PRN IV PUSH 02/13/18 10:30 Vital Signs / I&O Vital Signs Date Time Temp Pulse Resp B/P (MAP) Pulse Ox O2 Delivery O2 Flow Rate FiO2 02/13/18 16:14 97.8 84 18 103/63 (76) 95 02/13/18 16:00 86 02/13/18 15:00 83 02/13/18 14:00 75 02/13/18 13:00 80 02/13/18 12:00 80 02/13/18 11:00 98.6 79 18 111/60 (77) 92 02/13/18 11:00 73 02/13/18 10:00 82 02/13/18 09:00 96 02/13/18 08:04 98.4 97 18 141/75 (97) 97 02/13/18 08:00 92 02/13/18 07:00 95 02/13/18 06:00 90 02/13/18 05:00 90 02/13/18 04:28 98.2 92 16 134/70 (91) 94 02/13/18 04:00 96 02/13/18 03:00 100 02/13/18 02:00 88 02/13/18 01:00 92 02/13/18 00:04 85 02/13/18 00:00 98.5 86 16 128/66 (86) 100 Automatic Cuff 02/12/18 23:00 80 02/12/18 22:00 78 02/12/18 21:00 78 02/12/18 20:56 98.4 80 16 122/59 (80) 100 02/12/18 20:09 77 02/12/18 19:00 70 02/12/18 18:00 68 02/12/18 17:00 66 I/O 02/12/18 02/12/18 02/12/18 02/13/18 02/13/18 02/13/18 07:00 15:00 23:00 07:00 15:00 23:00 Intake Total 0 ml 240 ml 200 ml Output Total 1574 ml 600 ml 900 ml Balance -1574 ml -600 ml -660 ml 200 ml Intake Oral 0 ml 240 ml IV Total 200 ml Output Urine Total 1574 ml 600 ml 900 ml # Bowel Movements 2 Physical Exam GENERAL: Well developed, well nourished. No acute distress. HEENT: Jugular venous pressure is normal. CHEST: Lungs clear to auscultation bilaterally. Unlabored respiratory effort. CARDIAC: Regular rate and rhythm without S3, S4, or murmur. ABDOMEN: Soft, nontender, no hepatosplenomegaly. Bowel sounds present. EXTREMITIES: No clubbing, cyanosis, RLE 1+ edema. large right groin hematoma, 1 + DP Laboratory Laboratory Tests Test 02/12/18 20:39 02/13/18 03:07 02/13/18 07:25 02/13/18 15:15 White Blood Count 11.2 TH/MM3 13.2 TH/MM3 Red Blood Count 3.27 MIL/MM3 3.11 MIL/MM3 Hemoglobin 10.0 GM/DL 9.7 GM/DL Hematocrit 30.3 % 28.8 % Mean Corpuscular Volume 92.8 FL 92.5 FL Mean Corpuscular Hemoglobin 30.7 PG 31.1 PG Mean Corpuscular Hemoglobin Concent 33.1 % 33.6 % Red Cell Distribution Width 14.0 % 14.1 % Platelet Count 143 TH/MM3 134 TH/MM3 Mean Platelet Volume 8.8 FL 8.4 FL Prothrombin Time 10.9 SEC Prothromb Time International Ratio 1.1 RATIO Activated Partial Thromboplast Time 31.5 SEC 38.5 SEC 33.8 SEC Blood Urea Nitrogen 18 MG/DL Creatinine 0.98 MG/DL Random Glucose 127 MG/DL Calcium Level 8.0 MG/DL Sodium Level 140 MEQ/L Potassium Level 3.8 MEQ/L Chloride Level 104 MEQ/L Carbon Dioxide Level 28.4 MEQ/L Anion Gap 8 MEQ/L Estimat Glomerular Filtration Rate 74 ML/MIN Urine Color YELLOW Urine Turbidity CLEAR Urine pH 5.5 Urine Specific [place] 1.022 Urine Protein TRACE mg/dL Urine Glucose (UA) NEG mg/dL Urine Ketones NEG mg/dL Urine Occult Blood NEG Urine Nitrite NEG Urine Bilirubin NEG Urine Urobilinogen 2.0 MG/DL Urine Leukocyte Esterase NEG Urine WBC LESS THAN 1 /hpf Urine Hyaline Casts 10 /lpf Urine Mucus FEW /lpf Microscopic Urinalysis Comment CULT NOT INDICATED Test 02/13/18 16:02 Assessment and Plan Problem List: (1) Coronary artery disease ICD Codes: I25.10 - Atherosclerotic heart disease of [place] coronary artery without angina pectoris Plan: severe multi vessel disease, awaiting CABG -discussed with Dr Sylvain Campos, consider Pulm vein isolation/MAZE/ LA clip (2) Ventricular tachycardia ICD Codes: I47.2 - Ventricular tachycardia Plan: concerning for torsade - stopped Tikosyn (on BB), no further episodes (3) Hyperlipidemia ICD Codes: E78.5 - Hyperlipidemia, unspecified Status: Chronic (4) Hypertension ICD Codes: I10 - Essential (primary) hypertension Status: Chronic (5) Paroxysmal atrial flutter ICD Codes: I48.92 - Unspecified atrial flutter Status: Resolved (6) Paroxysmal atrial fibrillation ICD Codes: I48.0 - Paroxysmal atrial fibrillation Status: Chronic Plan: stable; on heparin Problem Qualifiers (1) Hyperlipidemia: Qualified Codes: E78.2 - Mixed hyperlipidemia (2) Hypertension: Qualified Codes: I10 - Essential (primary) hypertension Tanesha Gomez MD Feb 13, 2018 16:53
[2018-02-13] MEDS: ATORVASTATIN 40 MG TAB PO SCH (20:25)
[2018-02-13] MEDS: HEPARIN-D5W 25,000 U/250 ML 250 ML IV PRN (20:36)
--- NOTE | 2018-02-13 20:40 | RADRPT ---
EXAM DATE/TIME: 02/13/2018 18:29 [facility] COMPARISON: No previous studies available for comparison. EXTERNAL COMPARISON : [facility], US LEFT LEG VENOUS DOPPLER, February 18, 2014 INDICATIONS : Preop cardiac surgery. MEDICAL HISTORY : Myocardial infarction. Congestive heart failure. Hypercholesterolemia. Chest pain. Afib. HTN. Dyspnea . Renal disease. Diabetes. SURGICAL HISTORY : Coronary artery stent. Cardiac ablation x2. Cardiac cath. ENCOUNTER: Initial ACUITY: 1 week PAIN SCORE: 5/10 LOCATION: Bilateral leg. TECHNIQUE: Venous ultrasound of the left and right leg was performed from the inguinal ligament to the proximal calf. Real-time, color Doppler and spectral tracing, compression and augmentation techniques were us ed. FINDINGS: RIGHT LEG: There is a 8.4 x 6.8 x 5.5 cm pseudoaneurysm seen at the right groin. This is a small amount flow see n within the base. The rest of the pseudoaneurysm is thrombosed. There is normal compressibility of the deep venous system from the inguinal region to the proxim al calf. No echogenic clot is seen in the lumen of the common femoral, femoral, popliteal, and poste rior tibial veins. There is a normal response of the venous system to proximal and distal augmentati on and respiration. LEFT LEG: There is normal compressibility of the deep venous system from the inguinal region to the proximal ca lf. No echogenic clot is seen in the lumen of the common femoral, femoral, popliteal, and posterior tibial veins. There is a normal response of the venous system to proximal and distal augmentation an d respiration. CONCLUSION: 1. No DVT. 2. 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 Hasmukh Shi MD on February 13, 2018 at 20:36 Board Certified Radiologist. This report was verified electronically.
--- NOTE | 2018-02-13 20:42 | RADRPT ---
EXAM DATE/TIME: 02/13/2018 19:33 [facility] COMPARISON: No previous studies available for comparison. EXTERNAL COMPARISON : [facility], LEFT LEG VENOUS DOPPLER, February 18, 2014 INDICATIONS : Preop cardiac surgery. MEDICAL HISTORY : Myocardial infarction. Congestive heart failure. Hypercholesterolemia. Chest pain. Afib. HTN. Dyspnea . Renal disease. Diabetes. SURGICAL HISTORY : Coronary artery stent. Cardiac ablation x2. Cardiac cath. ENCOUNTER: Initial ACUITY: 1 week PAIN SCORE: 0/10 LOCATION: Bilateral leg. GREATER SAPHENOUS VEIN THIGH: PROXIMAL: Right Non-visualized Left 7 mm MID: Right 5 mm Left 4 mm DISTAL: Right 4 mm Left 3 mm CALF: PROXIMAL: Right 4 mm Left 3 mm Right Left DISTAL: Right 2 mm Left 2 mm FINDINGS: The venous system of the lower extremities are patent by color Doppler imaging. Measurements of the leg veins (in mm) are listed above. CONCLUSION: Greater saphenous vein measurements as delineated above. Hasmukh Shi MD on February 13, 2018 at 20:39 Board Certified Radiologist. This report was verified electronically.
[2018-02-14] VITALS (26 sets, daily range): BP systolic 107–136; BP diastolic 60–75; PULSE 72–122; RESP 16–18; TEMP 98.3–98.8; O2SAT 94–98
[2018-02-14] MEDS: HEPARIN SODIUM - IV 10,000 UNITS/10 ML VIAL IV PUSH PRN ×2 (01:42→21:55)
[2018-02-14] MEDS: IBUPROFEN 400 MG TAB PO PRN ×2 (02:25→20:02)
[2018-02-14] MEDS: MORPHINE SULFATE 4 MG/ML INJ IV PUSH PRN (03:43)
[2018-02-14] MEDS: INSULIN ASPART SUPPLEMENTAL SCALE SQ SCH ×4 (08:00→20:05)
[2018-02-14] MEDS: SODIUM CHLORIDE 0.9% FLUSH 10 ML FLUSH IV FLUSH SCH ×2 (09:00→19:58)
--- NOTE | 2018-02-14 09:31 | RADRPT ---
EXAM DATE/TIME: 02/14/2018 08:03 [facility] COMPARISON: CHEST PA & LAT, February 07, 2018, 10:14. INDICATIONS : Preoperative coronary artery bypass graft. RADIATION DOSE: 19.92 CTDIvol (mGy) ; Patient body habitus MEDICAL HISTORY : Congestive hearrt failure. Hypertension. diabetes SURGICAL HISTORY : None. ENCOUNTER: Initial ACUITY: 1 day PAIN SCALE: 0/10 LOCATION: Bilateral chest TECHNIQUE: Volumetric scanning of the chest was performed. Using automated exposure control and adjustment of t he mA and/or kV according to patient size, radiation dose was kept as low as reasonably achievable to obtain optimal diagnostic quality images. DICOM format image data is available electronically for r eview and comparison. Follow-up recommendations for detected pulmonary nodules are based at a minimum on nodule size and pa tient risk factors according to Fleischner Society Guidelines. FINDINGS: LUNGS: There is no consolidation or pneumothorax. No concerning pulmonary nodule is visualized. PLEURAE: There is no pleural thickening or pleural effusion. MEDIASTINUM: The heart and great vessels demonstrate no acute abnormality. There is no mediastinal or hilar lymph adenopathy. Extensive coronary artery calcification is present. AXILLAE: Within normal limits. No lymphadenopathy. MUSCULOSKELETAL: Within normal limits for patient age. MISCELLANEOUS: The visualized upper abdominal organs demonstrate no acute abnormality. There is a small retrocardiac hiatal hernia. CONCLUSION: 1. Extensive coronary artery calcifications. 2. The lungs are clear and there is no acute or pulmonary disease. Kamari Sabillon MD on February 14, 2018 at 9:28 Board Certified Radiologist. This report was verified electronically.
[2018-02-14] MEDS: METOPROLOL TARTRATE 100 MG TAB PO SCH ×3 (09:32→17:29)
[2018-02-14] MEDS: POTASSIUM CHLORIDE 10 MEQ CONTROLLED RELEASE TAB PO SCH (09:32)
[2018-02-14] MEDS: DOCUSATE SODIUM 50 MG/SENNA 8.6 MG TAB PO SCH ×2 (09:32→19:58)
[2018-02-14] MEDS: FUROSEMIDE 20 MG TAB PO SCH (09:32)
[2018-02-14] MEDS: ASPIRIN 81 MG CHEW TAB CHEW SCH (09:33)
--- NOTE | 2018-02-14 09:45 | HHI.FPPN ---
Subjective Remarks Patient was seen and evaluated this morning. He feels well. He has some pain associated with extensive swelling and bruising involving his right leg/groin. He denies chest discomfort/pain, heart racing/flutter, shortness of breath, nausea, vomiting, diarrhea and constipation. All questions were answered. Objective Vitals Vital Signs Date Time Temp Pulse Resp B/P (MAP) Pulse Ox O2 Delivery O2 Flow Rate FiO2 02/14/18 07:15 98.8 81 18 131/72 (91) 02/14/18 07:00 83 02/14/18 06:00 80 02/14/18 05:00 83 02/14/18 04:00 81 02/14/18 04:00 98.5 81 18 126/70 (88) 94 02/14/18 03:00 85 02/14/18 02:00 86 02/14/18 01:00 90 02/14/18 00:00 92 02/14/18 00:00 98.3 92 18 136/75 (95) 95 02/13/18 23:00 82 02/13/18 22:00 79 02/13/18 21:00 75 02/13/18 20:00 98.6 74 18 135/74 (94) 96 02/13/18 20:00 74 02/13/18 18:00 92 02/13/18 17:00 80 02/13/18 16:14 97.8 84 18 103/63 (76) 95 02/13/18 16:00 86 02/13/18 15:00 83 02/13/18 14:00 75 02/13/18 13:00 80 02/13/18 12:00 80 02/13/18 11:00 98.6 79 18 111/60 (77) 92 02/13/18 11:00 73 02/13/18 10:00 82 I/O 02/13/18 02/13/18 02/13/18 02/14/18 02/14/18 02/14/18 07:00 15:00 23:00 07:00 15:00 23:00 Intake Total 240 ml 200 ml 720 ml 610 ml Output Total 900 ml 1000 ml 1100 ml Balance -660 ml 200 ml -280 ml -490 ml Intake Oral 240 ml 720 ml 480 ml IV Total 200 ml 130 ml Output Urine Total 900 ml 1000 ml 1100 ml # Bowel Movements 0 Result Diagram: 02/13/18 1602 02/13/18 0307 Imaging Last 72 hours Impressions Lower Extremity Ultrasound 02/13/18 0000 Signed Impressions: Service Date/Time: Tuesday, February 13, 2018 19:33 - CONCLUSION: Greater saphenous vein measurements as delineated above. Hasmukh Shi MD Lower Extremity Ultrasound 02/13/18 0000 Signed Impressions: Service Date/Time: Tuesday, February 13, 2018 18:29 - CONCLUSION: 1. No DVT. 2. 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 Hasmukh Shi MD Carotid Artery Ultrasound 02/11/18 1409 Signed Impressions: Service Date/Time: Sunday, February 11, 2018 14:31 - CONCLUSION: 1. Mild increased velocities throughout the left carotid arteries which may reflect a mild to moderate proximal common carotid stenosis. 2. Bilateral carotid plaque without significant additional flow-limiting stenoses. 3. Antegrade vertebral artery flow bilaterally. Rob Gamez MD Objective Remarks GENERAL: This is a well-nourished, well-developed, morbidly obese patient, in no apparent distress. SKIN: Warm and dry. Extensive bruising over groin and proximal lower extremity on right extending circumferentially. Bruising is dark purple in color with yellow components today. Skin on right, lateral thigh is swollen and taut. HEAD: Atraumatic. Normocephalic. EYES: Pupils equal round. Extraocular motions intact. No scleral icterus. No injection or drainage. ENT: Nose without bleeding, purulent drainage or septal hematoma. Airway patent. NECK: Supple, nontender, no meningeal signs. CARDIOVASCULAR: Regular rate. 2 out of 6 systolic ejection murmur. No gallops or rubs. RESPIRATORY: Clear to auscultation anteriorly. Breath sounds equal bilaterally. No wheezes, rales, or rhonchi. GASTROINTESTINAL: Abdomen soft, non-tender, nondistended. MUSCULOSKELETAL: Extremities without clubbing, cyanosis. No joint tenderness, effusion, or edema noted. No calf tenderness. NEUROLOGICAL: Awake and alert. Cranial nerves II through XII intact. Motor and sensory grossly within normal limits. Normal speech. Procedures Cardiac catheterization 02/09. Cardiac catheterization 02/12. CABG planned for 02/16. Medications and IVs Current Medications Medications (Trade) Dose Ordered Sig/Marilyn Route Start Time Stop Time Status Last Admin (Lipitor) 40 mg HS PO 02/06/18 21:00 02/13/18 20:25 (Lasix) 20 mg DAILY PO 02/06/18 11:30 02/13/18 08:43 (Lopressor) 100 mg TID PO 02/06/18 13:00 02/13/18 17:32 (KCl) 10 meq DAILY PO 02/06/18 11:30 02/13/18 08:43 (Xarelto) 20 mg DAILY PO 02/06/18 12:00 Future Hold 02/06/18 11:57 (Nitroglycerin 2% Oint) 0.5 inch Q6HR PRN TOP 02/06/18 11:15 (Morphine Inj) 2 mg Q1HR PRN IV PUSH 02/06/18 11:15 02/14/18 03:43 (Narcan Inj) 0.4 mg UNSCH PRN IV PUSH 02/06/18 11:15 (Loraine-Colace) 1 tab BID PO 02/06/18 21:00 02/13/18 20:25 (Milk Of Magnesia Liq) 30 ml Q12H PRN PO 02/06/18 11:15 02/07/18 08:49 (Senokot) 17.2 mg Q12H PRN PO 02/06/18 11:15 (Dulcolax Supp) 10 mg DAILY PRN RECTAL 02/06/18 11:15 (Lactulose Liq) 30 ml DAILY PRN PO 02/06/18 11:15 (NovoLOG SUPPLEMENTAL SCALE) 1 ACHS SLIDING SCALE SQ 02/06/18 12:00 02/13/18 20:28 (D50w (Vial) Inj) 50 ml UNSCH PRN IV PUSH 02/06/18 12:00 (Glucagon Inj) 1 mg UNSCH PRN OTHER 02/06/18 12:00 (Aspirin Chew) 81 mg DAILY CHEW 02/07/18 10:30 02/13/18 08:43 (Motrin) 400 mg Q4HR PRN PO 02/09/18 22:00 02/14/18 02:25 (Benadryl) 50 mg FIRE FIGHTERS DISPATCHER PO 02/11/18 08:45 02/15/18 08:44 02/12/18 14:10 (Valium) 10 mg FIRE FIGHTERS DISPATCHER PO 02/11/18 08:45 02/15/18 08:44 02/12/18 14:10 (Versed Inj) 1 mg FIRE FIGHTERS DISPATCHER IV PUSH 02/11/18 08:45 02/15/18 08:44 (Atropine Inj) 0.5 mg UNSCH PRN IV 02/12/18 16:45 (Heparin Inj) 2,500 units UNSCH PRN IV PUSH 02/12/18 23:00 02/14/18 01:42 Heparin Sodium/ Dextrose 250 ml @ 10 mls/hr TITRATE PRN IV 02/12/18 23:00 02/13/18 20:36 (Heparin Inj) 5,000 units UNSCH PRN IV PUSH 02/12/18 17:00 (NS Flush) 2 ml BID IV FLUSH 02/13/18 21:00 02/13/18 20:26 (NS Flush) 2 ml UNSCH PRN IV FLUSH 02/13/18 10:30 Papaverine HCl 60 mg/Nitroglycerin 100 mcg/Diltiazem HCl 100 mg/Sodium Chloride 100 ml @ 0 mls/hr FIRE FIGHTERS DISPATCHER IRRIGATION 02/13/18 10:30 02/20/18 10:29 Vancomycin HCl 1000 mg/Sodium Chloride 1,000 ml @ 0 mls/hr FIRE FIGHTERS DISPATCHER IRRIGATION 02/13/18 10:30 02/20/18 10:29 Vancomycin HCl 1750 mg/Sodium Chloride 517.5 ml @ 258.75 mls/ hr FIRE FIGHTERS DISPATCHER IV 02/13/18 10:30 02/20/18 10:29 (Lopressor) 12.5 mg FIRE FIGHTERS DISPATCHER PO 02/13/18 10:30 02/20/18 10:29 (Hibiclens 4% Top Soln) 1 applic FIRE FIGHTERS DISPATCHER TOPICAL 02/13/18 10:30 02/20/18 10:29 Insulin Human Regular 100 units/ Sodium Chloride 100 ml @ 3 mls/hr TITRATE PRN IV 02/13/18 10:30 02/20/18 10:29 (D50w (Vial) Inj) 50 ml UNSCH PRN IV PUSH 02/13/18 10:30 Urinary Catheter: No Vascular Central Line Catheter: No A/P Assessment and Plan Patient is a 77 year old male with a past medical history significant of A.fib s /p ablation and electrocardioversion and current anticoagulation, CAD s/p DE with stent placement, CHF, DM Type II, HTN and hyperlipidemia who presents with chest discomfort and shortness of breath for approximately two hours on the day of admission. Troponin increased to 5.57 and an EKG showed ST segment depressions in lateral/junctional leads. Cardiac catheterization with cardiology on Friday02/09/2018 revealing severe three-vessel CAD, repeat coronary angiogram on 02/12 confirmed severe three-vessel CAD. Not amenable to PCI. Patient will be referred for bypass surgery; CABG tentatively scheduled for 02/16. Discharge Planning Pending cardiac clearance for discharge. Problem List: (1) Non-STEMI (non-ST elevated myocardial infarction) ICD Codes: I21.4 - Non-ST elevation (NSTEMI) myocardial infarction Status: Acute Plan: EKG with lateral lead (V4, V5) ST depression. Repeat EKG without evidence of ST elevation or depression. Troponin DOWNTRENDIN.32 -> 5.57 --> 4.59 --> 3.22. CK-MB DOWNTRENDIN.5 -> 17.6 --> 15.9. Despite significant increase in cardiac enzymes, patient denies chest pain and associated symptoms. Severe 3 vessel CAD, scheduled for bypass on 02/16; not amenable for PCI. Per cardiology: * Xarelto held 02/06. * Placed on heparin drip. (2) History of atrial fibrillation ICD Codes: Z86.79 - Personal history of other diseases of the circulatory system Status: Acute Plan: Patient with history of A.fib s/p ablations x3 and electrocardioversion. Episodes of V. tach on 02/11, asymptomatic (1 episode of flutter on 02/11). * Continue recommendations per cardiology. (3) CHF (congestive heart failure) ICD Codes: I50.9 - Heart failure, unspecified Plan: Patient with history of CHF. BNP on admission 31. ECHO CONCLUSIONS 02/06: * Normal left ventricular size and wall thickness. * The left ventricular systolic function is normal with an estimated ejection fraction in the range of 60-65%. * No definite wall motion abnormalities. * Moderate mitral annular calcification. * Diffuse mild calcification of the aortic valve. (4) Traumatic ecchymosis of right lower leg ICD Codes: S80.11XA - Contusion of right lower leg, initial encounter Plan: Patient with extensive bruising of his groin and proximal lower extremity on right, following cardiac catheterization on 02/09. Bruising has extended following cardiac catheterization on 02/12. Patient reports some pain associated with bruising. Hgb 11.8 -> 10 -> 9.7 -> 9.2. Repeat pending this a.m. Monitor. We will transfuse for hemoglobin less than 8.0. Ultrasound Leg Venous Doppler Bilateral 02/13: * There is a 8.4 x 6.8 x 5.5 cm pseudoaneurysm involving the right common femoral artery. This is a small amount flow seen within the base. The rest of the pseudoaneurysm is thrombosed. * No evidence of LE DVT bilaterally. (5) Hypertension ICD Codes: I10 - Essential (primary) hypertension Status: Chronic Plan: Patient with history of hypertension. * Continue home meds. (6) Diabetes mellitus ICD Codes: E11.9 - Type 2 diabetes mellitus without complications Status: Acute Plan: Patient with history of pre-diabetes, per patient. Patient with history of diabetes, per chart. Bedside glucose (24hr): 156-162. * Hemoglobin A1C 5.8 * Held home meds. * Low NovoLOG Scale. (7) Hyperlipidemia ICD Codes: E78.5 - Hyperlipidemia, unspecified Status: Chronic Plan: Patient with history of hyperlipidemia. * Continue home meds. (8) SATURNINO (acute kidney injury) ICD Codes: N17.9 - Acute kidney failure, unspecified Status: Resolved Plan: Resolved. 1.42 on admission. (9) Fluid, Nutrition, Electrolyte, and Prophylaxis Status: Acute Plan: Fluid: * Encourage PO fluids. Nutrition: * Heart healthy diet. Electrolyte: * Monitor and replete as necessary. Prophylaxis: * SCDs. * Heparin drip per cardiology. Problem Qualifiers (1) Hypertension: Qualified Codes: I10 - Essential (primary) hypertension (2) Hyperlipidemia: Qualified Codes: E78.2 - Mixed hyperlipidemia Fannie Calvillo MD R1 Feb 14, 2018 09:45
--- NOTE | 2018-02-14 10:06 | HHI.FPPN ---
Addendum to progress note ADDENDUM Reason for addendum: Additonal documentation Additional information Off-Service Note HPI on Day of Admission: Patient is a 77 year old male with a past medical history significant of A.fib s /p ablation and electrocardioversion, CAD s/p [place] with stent placement, CHF, DM Type II, HTN and hyperlipidemia who presents with chest discomfort and shortness of breath, lasting for approximately two hours. The patient had just laid down for the night at around 4:00 a.m., when he started to experience a 2/ 10, non-radiating discomfort across his chest, "located more toward the middle. " He says it wasn't "pain per se." It felt like heartburn; patient had eaten dinner at 22:00. He also reports shortness of breath and a non-productive cough. He tossed and turned in discomfort for an hour. He states that as soon as he sat up, his symptoms improved. He took his vitals: pulse ox 89-90% on room air, HR 88, and BP 250/50. By 6:30 a.m., he was on his way to the hospital despite complete resolution of symptoms. Patient did not take any medication to relieve symptoms. He denies fever and chills. Per , he napped more than usual the day prior to admission. Hospital Course: Patient admitted for NSTEMI with Troponin rise to 5.57 and an EKG showing ST segment depressions in lateral/junctional leads. Cardiac catheterization with cardiology on Friday02/09/2018 revealing severe three-vessel CAD and repeat coronary angiogram on 02/12/2018, which confirmed severe three-vessel CAD. Not amenable to PCI. Patient has been referred for bypass surgery with CABG tentatively scheduled for 02/16. CVT on board, pre-op evaluation in process. 1. Non-STEMI * Patient has not had chest discomfort/pain while hospitalized. * Home Xarelto held. Placed on Heparin drip. * CABG tentatively scheduled for 02/16. 2. Dysrhythmia * History of atrial fibrillation s/p ablations x3 and electrocardioversion. * Episodes of V. tach on 02/11, asymptomatic. 3. CHF * ECHO completed during this admission. * The left ventricular systolic function is normal with an estimated ejection fraction in the range of 60-65%. 4. Traumatic ecchymosis of right lower leg * Patient with extensive bruising of his groin and proximal lower extremity on right, following cardiac catheterization on 02/09. * Bruising has extended following cardiac catheterization on 02/12. 5. Hypertension, hyperlipidemia, DM * Chronic management. Fannie Calvillo MD R1 Feb 14, 2018 10:06
[2018-02-14 12:03] LABS: AUTOMATED NEUTROPHIL # 9.5 TH/MM3 (1.8-7.7); BASOPHIL # 0.1 TH/MM3 (0-0.2); BASOPHIL % 0.7 % (0.0-2.0); EOSINOPHIL # 0.2 TH/MM3 (0-0.4); EOSINOPHIL % 1.5 % (0.0-4.0); HEMATOCRIT 25.1 % (39.0-51.0); HEMOGLOBIN 8.5 GM/DL (13.0-17.0); LYMPHOCYTE # 1.8 TH/MM3 (1.0-4.8); MEAN CORPUSCULAR HEMOGLOBIN 31.4 PG (27.0-34.0); MEAN CORPUSCULAR HGB CONC 33.8 % (32.0-36.0); MEAN PLATELET VOLUME 8.9 FL (7.0-11.0); MONO % 11.4 % (0.0-8.0); MONOCYTE # 1.5 TH/MM3 (0-0.9); NEUT % 72.4 % (16.0-70.0); PLATELET COUNT 151 TH/MM3 (150-450); RED CELL DISTRIBUTION WIDTH 14.4 % (11.6-17.2); WHITE BLOOD COUNT 13.1 TH/MM3 (4.0-11.0)
[2018-02-14 12:36] LABS: BICARBONATE 27.1 MEQ/L (21.0-32.0); CALCIUM 8.3 MG/DL (8.5-10.1); CREATININE 1.22 MG/DL (0.60-1.30)
[2018-02-14] MEDS: HEPARIN-D5W 25,000 U/250 ML 250 ML IV PRN (12:40)
[2018-02-14 12:57] LABS: BANDS 6 % (0-6); LYMPHOCYTES 13 % (9-44); MONOCYTES 4 % (0-8); NEUTROPHIL # MANUAL DIFF 10.7 TH/MM3 (1.8-7.7); POLYS (SEG NEUTROPHILS) 76 % (16-70)
--- NOTE | 2018-02-14 14:55 | HHI.PR ---
Subjective Remarks Feeling ok Objective Vital Signs Date Time Temp Pulse Resp B/P (MAP) Pulse Ox O2 Delivery O2 Flow Rate FiO2 02/14/18 11:15 98.5 79 16 107/60 (76) 98 02/14/18 11:00 90 02/14/18 07:15 98.8 81 18 131/72 (91) 02/14/18 07:00 83 02/14/18 06:00 80 02/14/18 05:00 83 02/14/18 04:00 81 02/14/18 04:00 98.5 81 18 126/70 (88) 94 02/14/18 03:00 85 02/14/18 02:00 86 02/14/18 01:00 90 02/14/18 00:00 92 02/14/18 00:00 98.3 92 18 136/75 (95) 95 02/13/18 23:00 82 02/13/18 22:00 79 02/13/18 21:00 75 02/13/18 20:00 98.6 74 18 135/74 (94) 96 02/13/18 20:00 74 02/13/18 18:00 92 02/13/18 17:00 80 02/13/18 16:14 97.8 84 18 103/63 (76) 95 02/13/18 16:00 86 02/13/18 15:00 83 I/O 02/13/18 02/13/18 02/13/18 02/14/18 02/14/18 02/14/18 07:00 15:00 23:00 07:00 15:00 23:00 Intake Total 240 ml 200 ml 720 ml 610 ml Output Total 900 ml 1000 ml 1100 ml Balance -660 ml 200 ml -280 ml -490 ml Intake Oral 240 ml 720 ml 480 ml IV Total 200 ml 130 ml Output Urine Total 900 ml 1000 ml 1100 ml # Bowel Movements 0 Result Diagram: 02/14/18 1120 02/14/18 1120 Imaging Alert, fully oriented Lungs: ventilated Heart: S1, S2 regular, no gallop Abdomen: soft, no mass, obese Ext: no edema Last Impressions Chest CT 02/14/18 0000 Signed Impressions: Service Date/Time: Wednesday, February 14, 2018 08:03 - CONCLUSION: 1. Extensive coronary artery calcifications. 2. The lungs are clear and there is no acute or pulmonary disease. Kamari Sabillon MD Lower Extremity Ultrasound 02/13/18 0000 Signed Impressions: Service Date/Time: Tuesday, February 13, 2018 19:33 - CONCLUSION: Greater saphenous vein measurements as delineated above. Hasmukh Shi MD Carotid Artery Ultrasound 02/11/18 1409 Signed Impressions: Service Date/Time: Sunday, February 11, 2018 14:31 - CONCLUSION: 1. Mild increased velocities throughout the left carotid arteries which may reflect a mild to moderate proximal common carotid stenosis. 2. Bilateral carotid plaque without significant additional flow-limiting stenoses. 3. Antegrade vertebral artery flow bilaterally. Rob Gamez MD Chest X-Ray 02/07/18 0600 Signed Impressions: Service Date/Time: Wednesday, February 07, 2018 10:14 - CONCLUSION: Minimal parenchymal changes left base Robin Bowers MD FACR Current Medications Medications (Trade) Dose Ordered Sig/Marilyn Route Start Time Stop Time Status Last Admin (Lipitor) 40 mg HS PO 02/06/18 21:00 02/13/18 20:25 (Lasix) 20 mg DAILY PO 02/06/18 11:30 02/14/18 09:32 (Lopressor) 100 mg TID PO 02/06/18 13:00 02/14/18 12:38 (KCl) 10 meq DAILY PO 02/06/18 11:30 02/14/18 09:32 (Xarelto) 20 mg DAILY PO 02/06/18 12:00 Future Hold 02/06/18 11:57 (Nitroglycerin 2% Oint) 0.5 inch Q6HR PRN TOP 02/06/18 11:15 (Morphine Inj) 2 mg Q1HR PRN IV PUSH 02/06/18 11:15 02/14/18 03:43 (Narcan Inj) 0.4 mg UNSCH PRN IV PUSH 02/06/18 11:15 (Loraine-Colace) 1 tab BID PO 02/06/18 21:00 02/14/18 09:32 (Milk Of Magnesia Liq) 30 ml Q12H PRN PO 02/06/18 11:15 02/07/18 08:49 (Senokot) 17.2 mg Q12H PRN PO 02/06/18 11:15 (Dulcolax Supp) 10 mg DAILY PRN RECTAL 02/06/18 11:15 (Lactulose Liq) 30 ml DAILY PRN PO 02/06/18 11:15 (NovoLOG SUPPLEMENTAL SCALE) 1 ACHS SLIDING SCALE SQ 02/06/18 12:00 02/14/18 12:00 (D50w (Vial) Inj) 50 ml UNSCH PRN IV PUSH 02/06/18 12:00 (Glucagon Inj) 1 mg UNSCH PRN OTHER 02/06/18 12:00 (Aspirin Chew) 81 mg DAILY CHEW 02/07/18 10:30 02/14/18 09:33 (Motrin) 400 mg Q4HR PRN PO 02/09/18 22:00 02/14/18 02:25 (Benadryl) 50 mg IT PROFESSIONAL PO 02/11/18 08:45 02/15/18 08:44 02/12/18 14:10 (Valium) 10 mg IT PROFESSIONAL PO 02/11/18 08:45 02/15/18 08:44 02/12/18 14:10 (Versed Inj) 1 mg IT PROFESSIONAL IV PUSH 02/11/18 08:45 02/15/18 08:44 (Atropine Inj) 0.5 mg UNSCH PRN IV 02/12/18 16:45 (Heparin Inj) 2,500 units UNSCH PRN IV PUSH 02/12/18 23:00 02/14/18 01:42 Heparin Sodium/ Dextrose 250 ml @ 10 mls/hr TITRATE PRN IV 02/12/18 23:00 02/14/18 12:40 (Heparin Inj) 5,000 units UNSCH PRN IV PUSH 02/12/18 17:00 (NS Flush) 2 ml BID IV FLUSH 02/13/18 21:00 02/14/18 09:00 (NS Flush) 2 ml UNSCH PRN IV FLUSH 02/13/18 10:30 Papaverine HCl 60 mg/Nitroglycerin 100 mcg/Diltiazem HCl 100 mg/Sodium Chloride 100 ml @ 0 mls/hr IT PROFESSIONAL IRRIGATION 02/13/18 10:30 02/20/18 10:29 Vancomycin HCl 1000 mg/Sodium Chloride 1,000 ml @ 0 mls/hr IT PROFESSIONAL IRRIGATION 02/13/18 10:30 02/20/18 10:29 Vancomycin HCl 1750 mg/Sodium Chloride 517.5 ml @ 258.75 mls/ hr IT PROFESSIONAL IV 02/13/18 10:30 02/20/18 10:29 (Lopressor) 12.5 mg IT PROFESSIONAL PO 02/13/18 10:30 02/20/18 10:29 (Hibiclens 4% Top Soln) 1 applic IT PROFESSIONAL TOPICAL 02/13/18 10:30 02/20/18 10:29 Insulin Human Regular 100 units/ Sodium Chloride 100 ml @ 3 mls/hr TITRATE PRN IV 02/13/18 10:30 02/20/18 10:29 (D50w (Vial) Inj) 50 ml UNSCH PRN IV PUSH 02/13/18 10:30 Assessment and Plan Problem List: (1) CHF (congestive heart failure) ICD Codes: I50.9 - Heart failure, unspecified Plan: on optimal medical management (2) Non-STEMI (non-ST elevated myocardial infarction) ICD Codes: I21.4 - Non-ST elevation (NSTEMI) myocardial infarction Status: Acute Plan: [facility] Pending CABG on Friday Diann Franz MD Feb 14, 2018 14:55
--- NOTE | 2018-02-14 19:04 | EKG ---
Date Performed: 02/13/2018 Time Performed: 18:14:20 PTAGE: 77 years EKG: Sinus rhythm Prominent diffuse ST-T abnormality, cannot exclude ischemia although similar changes are noted on pr ior tracing Abnormal ECG PREVIOUS TRACING : 02/11/2018 08.32 DOCTOR: Eusebio Stewart Interpretating Date/Time 02/14/2018 19:02:51
[2018-02-14] MEDS: ATORVASTATIN 40 MG TAB PO SCH (19:57)
[2018-02-15] VITALS (27 sets, daily range): BP systolic 104–156; BP diastolic 60–91; PULSE 72–150; RESP 16–18; TEMP 97.8–98.7; O2SAT 91–98
[2018-02-15 04:16] LABS: HEMOGLOBIN 8.2 GM/DL (13.0-17.0); MEAN CELL VOLUME 92.6 FL (80.0-100.0); MEAN CORPUSCULAR HEMOGLOBIN 31.6 PG (27.0-34.0); MEAN CORPUSCULAR HGB CONC 34.1 % (32.0-36.0); MEAN PLATELET VOLUME 8.7 FL (7.0-11.0); PLATELET COUNT 162 TH/MM3 (150-450); RED BLOOD COUNT 2.59 MIL/MM3 (4.50-5.90); RED CELL DISTRIBUTION WIDTH 14.1 % (11.6-17.2); WHITE BLOOD COUNT 14.9 TH/MM3 (4.0-11.0)
[2018-02-15 04:37] LABS: BICARBONATE 31.1 MEQ/L (21.0-32.0); BLOOD UREA NITROGEN 17 MG/DL (7-18); CHLORIDE 103 MEQ/L (98-107); CREATININE 0.88 MG/DL (0.60-1.30); GLOMERULAR FILTRATION RATE 84 ML/MIN (>89); GLUCOSE,RANDOM 119 MG/DL (74-106); SODIUM (NA) 141 MEQ/L (136-145)
[2018-02-15] MEDS: INSULIN ASPART SUPPLEMENTAL SCALE SQ SCH ×4 (08:00→20:13)
[2018-02-15] MEDS ORDERED: PAPAVERINE INJ 60 MG, NITROGLYCERIN INJ 100 MCG, VERAPAMIL INJ 100 MG in SODIUM CHLORID... IRRIGATION SCH (08:30)
[2018-02-15] MEDS: SODIUM CHLORIDE 0.9% FLUSH 10 ML FLUSH IV FLUSH SCH ×2 (08:52→19:59)
[2018-02-15] MEDS: ASPIRIN 81 MG CHEW TAB CHEW SCH (08:52)
[2018-02-15] MEDS: POTASSIUM CHLORIDE 10 MEQ CONTROLLED RELEASE TAB PO SCH (08:52)
[2018-02-15] MEDS: FUROSEMIDE 20 MG TAB PO SCH (08:52)
[2018-02-15] MEDS: DOCUSATE SODIUM 50 MG/SENNA 8.6 MG TAB PO SCH ×2 (08:52→19:59)
[2018-02-15] MEDS: METOPROLOL TARTRATE 100 MG TAB PO SCH ×3 (08:52→17:08)
[2018-02-15] MEDS: HEPARIN-D5W 25,000 U/250 ML 250 ML IV PRN (09:47)
--- NOTE | 2018-02-15 10:12 | PD.CAR.PN ---
CVT Progress Note Subjective/Hospital Course: pt seen and evaluated, full consult to follow sts discussed with pt RISK SCORES About the STS Risk Calculator Procedure: CAB Only Risk of Mortality: 5.279% Morbidity or Mortality: 31.634% Long Length of Stay: 20.812% Short Length of Stay: 12.593% Permanent Stroke: 1.469% Prolonged Ventilation: 23.569% DSW Infection: 1.814% Renal Failure: 11.546% Reoperation: 9.396% 02/15/18 Denies chest pain. Anemic with HCT 24%. He will require blood products based on ischemic heart disease and CABG. Objective: Vital Signs Date Time Temp Pulse Resp B/P (MAP) Pulse Ox O2 Delivery O2 Flow Rate FiO2 02/15/18 06:00 92 02/15/18 05:00 83 02/15/18 04:00 76 02/15/18 04:00 98.2 76 18 142/77 (98) 98 02/15/18 03:00 81 02/15/18 02:00 85 02/15/18 01:00 87 02/15/18 00:00 80 02/15/18 00:00 98.2 80 18 104/60 (75) 97 02/15/18 00:00 Room Air 02/14/18 23:00 81 02/14/18 22:00 75 02/14/18 21:00 79 02/14/18 20:00 98.5 76 18 119/62 (81) 96 02/14/18 20:00 76 02/14/18 18:00 72 02/14/18 17:00 80 02/14/18 16:00 76 02/14/18 15:15 98.7 75 16 113/65 (81) 98 02/14/18 15:00 74 02/14/18 14:00 82 02/14/18 13:00 84 02/14/18 12:00 82 02/14/18 11:15 98.5 79 16 107/60 (76) 98 02/14/18 11:00 90 Labs: Laboratory Tests Test 02/15/18 03:17 White Blood Count 14.9 TH/MM3 (4.0-11.0) Red Blood Count 2.59 MIL/MM3 (4.50-5.90) Hemoglobin 8.2 GM/DL (13.0-17.0) Hematocrit 24.0 % (39.0-51.0) Mean Corpuscular Volume 92.6 FL (80.0-100.0) Mean Corpuscular Hemoglobin 31.6 PG (27.0-34.0) Mean Corpuscular Hemoglobin Concent 34.1 % (32.0-36.0) Red Cell Distribution Width 14.1 % (11.6-17.2) Platelet Count 162 TH/MM3 (150-450) Mean Platelet Volume 8.7 FL (7.0-11.0) Activated Partial Thromboplast Time 76.9 SEC (24.3-30.1) Blood Urea Nitrogen 17 MG/DL (7-18) Creatinine 0.88 MG/DL (0.60-1.30) Random Glucose 119 MG/DL (74-106) Calcium Level 8.0 MG/DL (8.5-10.1) Sodium Level 141 MEQ/L (136-145) Potassium Level 3.6 MEQ/L (3.5-5.1) Chloride Level 103 MEQ/L (98-107) Carbon Dioxide Level 31.1 MEQ/L (21.0-32.0) Anion Gap 7 MEQ/L (5-15) Estimat Glomerular Filtration Rate 84 ML/MIN (>89) Result Diagram: 02/15/187 02/15/18 0317 Imaging: Last Impressions Chest CT 02/14/18 0000 Signed Impressions: Service Date/Time: Wednesday, February 14, 2018 08:03 - CONCLUSION: 1. Extensive coronary artery calcifications. 2. The lungs are clear and there is no acute or pulmonary disease. Kamari Sabillon MD Lower Extremity Ultrasound 02/13/18 0000 Signed Impressions: Service Date/Time: Tuesday, February 13, 2018 19:33 - CONCLUSION: Greater saphenous vein measurements as delineated above. Hasmukh Shi MD Carotid Artery Ultrasound 02/11/18 1409 Signed Impressions: Service Date/Time: Sunday, February 11, 2018 14:31 - CONCLUSION: 1. Mild increased velocities throughout the left carotid arteries which may reflect a mild to moderate proximal common carotid stenosis. 2. Bilateral carotid plaque without significant additional flow-limiting stenoses. 3. Antegrade vertebral artery flow bilaterally. Rob Gamez MD Chest X-Ray 02/07/18 0600 Signed Impressions: Service Date/Time: Wednesday, February 07, 2018 10:14 - CONCLUSION: Minimal parenchymal changes left base Robin Bowers MD FACR Cardiovascular: RRR Pulmonary: CTA GI/: NABS Plan: Patient at relatively high-risk for CABG with patent LAD stent and ostial high grade RCA, branch vessel disease. Plan for all vein CABG with resection of left atrial appendage based on h/o dysrhythmia requiring Tikosyn after discussion with Dr. Franz this morning. I will consult Dr. Franz if he has rhythm issues postoperatively. Risks and benefits of CABG discussed and he agrees to proceed. (1) Coronary artery disease Plan: severe multi vessel disease, awaiting CABG -discussed with Dr Sylvain Campos, consider Pulm vein isolation/MAZE/ LA clip (2) Ventricular tachycardia Plan: concerning for torsade - stopped Tikosyn (on BB), no further episodes (3) Hyperlipidemia (4) Hypertension (5) Paroxysmal atrial flutter (6) Paroxysmal atrial fibrillation Plan: stable; on heparin Problem Qualifiers (1) Hyperlipidemia: Qualified Codes: E78.2 - Mixed hyperlipidemia (2) Hypertension: Qualified Codes: I10 - Essential (primary) hypertension Argenis Campos MD Feb 15, 2018 10:12
[2018-02-15] MEDS ORDERED: SODIUM CHLOR 0.9% 250 ML INJ 250 ML IV ONE (11:15)
[2018-02-15] MEDS ORDERED: FUROSEMIDE 20 MG/2 ML VIAL IV PUSH ONE (11:15)
--- NOTE | 2018-02-15 11:47 | HHI.PR ---
Subjective Remarks Feeling ok Objective Vital Signs Date Time Temp Pulse Resp B/P (MAP) Pulse Ox O2 Delivery O2 Flow Rate FiO2 02/15/18 07:05 97.8 109 18 151/91 (111) 98 02/15/18 07:05 Room Air 02/15/18 06:00 92 02/15/18 05:00 83 02/15/18 04:00 76 02/15/18 04:00 98.2 76 18 142/77 (98) 98 02/15/18 03:00 81 02/15/18 02:00 85 02/15/18 01:00 87 02/15/18 00:00 80 02/15/18 00:00 98.2 80 18 104/60 (75) 97 02/15/18 00:00 Room Air 02/14/18 23:00 81 02/14/18 22:00 75 02/14/18 21:00 79 02/14/18 20:00 98.5 76 18 119/62 (81) 96 02/14/18 20:00 76 02/14/18 18:00 72 02/14/18 17:00 80 02/14/18 16:00 76 02/14/18 15:15 98.7 75 16 113/65 (81) 98 02/14/18 15:00 74 02/14/18 14:00 82 02/14/18 13:00 84 02/14/18 12:00 82 I/O 02/14/18 02/14/18 02/14/18 02/15/18 02/15/18 02/15/18 07:00 15:00 23:00 07:00 15:00 23:00 Intake Total 610 ml 860 ml 620 ml Output Total 1100 ml 850 ml 1000 ml Balance -490 ml 10 ml -380 ml Intake Oral 480 ml 860 ml 480 ml IV Total 130 ml 140 ml Output Urine Total 1100 ml 850 ml 1000 ml # Bowel Movements 0 0 Result Diagram: 02/15/1831602/15/18316 Imaging Alert, fully oriented, in bed Lungs: ventilated Heart: S1, S2 regular, no gallop Abdomen: soft, obese Ext: minimal edema Last Impressions Chest CT 02/14/18 0000 Signed Impressions: Service Date/Time: Wednesday, February 14, 2018 08:03 - CONCLUSION: 1. Extensive coronary artery calcifications. 2. The lungs are clear and there is no acute or pulmonary disease. Kamari Sabillon MD Lower Extremity Ultrasound 02/13/18 0000 Signed Impressions: Service Date/Time: Tuesday, February 13, 2018 19:33 - CONCLUSION: Greater saphenous vein measurements as delineated above. Hasmukh Shi MD Carotid Artery Ultrasound 02/11/18 1409 Signed Impressions: Service Date/Time: Sunday, February 11, 2018 14:31 - CONCLUSION: 1. Mild increased velocities throughout the left carotid arteries which may reflect a mild to moderate proximal common carotid stenosis. 2. Bilateral carotid plaque without significant additional flow-limiting stenoses. 3. Antegrade vertebral artery flow bilaterally. Rob Gamez MD Chest X-Ray 02/07/18 0600 Signed Impressions: Service Date/Time: Wednesday, February 07, 2018 10:14 - CONCLUSION: Minimal parenchymal changes left base Robin Bowers MD FACR Current Medications Medications (Trade) Dose Ordered Sig/Marilyn Route Start Time Stop Time Status Last Admin (Lipitor) 40 mg HS PO 02/06/18 21:00 02/14/18 19:57 (Lasix) 20 mg DAILY PO 02/06/18 11:30 02/15/18 08:52 (Lopressor) 100 mg TID PO 02/06/18 13:00 02/15/18 08:52 (KCl) 10 meq DAILY PO 02/06/18 11:30 02/15/18 08:52 (Xarelto) 20 mg DAILY PO 02/06/18 12:00 Future Hold 02/06/18 11:57 (Nitroglycerin 2% Oint) 0.5 inch Q6HR PRN TOP 02/06/18 11:15 (Morphine Inj) 2 mg Q1HR PRN IV PUSH 02/06/18 11:15 02/14/18 03:43 (Narcan Inj) 0.4 mg UNSCH PRN IV PUSH 02/06/18 11:15 (Loraine-Colace) 1 tab BID PO 02/06/18 21:00 02/15/18 08:52 (Milk Of Magnesia Liq) 30 ml Q12H PRN PO 02/06/18 11:15 02/07/18 08:49 (Senokot) 17.2 mg Q12H PRN PO 02/06/18 11:15 (Dulcolax Supp) 10 mg DAILY PRN RECTAL 02/06/18 11:15 (Lactulose Liq) 30 ml DAILY PRN PO 02/06/18 11:15 (NovoLOG SUPPLEMENTAL SCALE) 1 ACHS SLIDING SCALE SQ 02/06/18 12:00 02/15/18 08:00 (D50w (Vial) Inj) 50 ml UNSCH PRN IV PUSH 02/06/18 12:00 (Glucagon Inj) 1 mg UNSCH PRN OTHER 02/06/18 12:00 (Aspirin Chew) 81 mg DAILY CHEW 02/07/18 10:30 02/15/18 08:52 (Motrin) 400 mg Q4HR PRN PO 02/09/18 22:00 02/14/18 20:02 (Atropine Inj) 0.5 mg UNSCH PRN IV 02/12/18 16:45 (Heparin Inj) 2,500 units UNSCH PRN IV PUSH 02/12/18 23:00 02/14/18 21:55 Heparin Sodium/ Dextrose 250 ml @ 10 mls/hr TITRATE PRN IV 02/12/18 23:00 02/15/18 09:47 (Heparin Inj) 5,000 units UNSCH PRN IV PUSH 02/12/18 17:00 (NS Flush) 2 ml BID IV FLUSH 02/13/18 21:00 02/15/18 08:52 (NS Flush) 2 ml UNSCH PRN IV FLUSH 02/13/18 10:30 Vancomycin HCl 1000 mg/Sodium Chloride 1,000 ml @ 0 mls/hr LE[employer]IST IRRIGATION 02/13/18 10:30 02/20/18 10:29 Vancomycin HCl 1750 mg/Sodium Chloride 517.5 ml @ 258.75 mls/ hr [employer]IST IV 02/13/18 10:30 02/20/18 10:29 (Lopressor) 12.5 mg LE[employer]IST PO 02/13/18 10:30 02/20/18 10:29 (Hibiclens 4% Top Soln) 1 applic [employer]IST TOPICAL 02/13/18 10:30 02/20/18 10:29 Insulin Human Regular 100 units/ Sodium Chloride 100 ml @ 3 mls/hr TITRATE PRN IV 02/13/18 10:30 02/20/18 10:29 (D50w (Vial) Inj) 50 ml UNSCH PRN IV PUSH 02/13/18 10:30 Papaverine HCl 60 mg/Nitroglycerin 100 mcg/Verapamil HCl 100 mg/Sodium Chloride 100 ml @ 0 mls/hr [employer]IST IRRIGATION 02/15/18 08:30 02/20/18 10:29 Sodium Chloride 250 ml @ 15 mls/hr ONCE ONCE IV 02/15/18 11:15 02/16/18 03:54 Assessment and Plan Problem List: (1) CHF (congestive heart failure) ICD Codes: I50.9 - Heart failure, unspecified Plan: on optimal medical management (2) Non-STEMI (non-ST elevated myocardial infarction) ICD Codes: I21.4 - Non-ST elevation (NSTEMI) myocardial infarction Status: Acute Plan: Case discussed with Dr Brand Left atrial appendage ligation vs resection discussed CABG schedule for tomorrow I will be available on a PRN basis Diann Franz MD Feb 15, 2018 11:47
--- NOTE | 2018-02-15 11:52 | HHI.FPPN ---
Subjective Remarks Patient was seen and evaluated this morning. He feels well. His pain associated with extensive swelling and bruising involving his right leg/groin has improved. He reports shortness of breath when walking around room and moving from bed to chair. Per nurse, he becomes tachycardic when moving around. He denies chest discomfort/pain, heart racing/flutter, nausea, vomiting, diarrhea and constipation. All questions were answered. (Fannie Calvillo MD R1) Objective Vitals Vital Signs Date Time Temp Pulse Resp B/P (MAP) Pulse Ox O2 Delivery O2 Flow Rate FiO2 02/15/18 07:05 97.8 109 18 151/91 (111) 98 02/15/18 07:05 Room Air 02/15/18 06:00 92 02/15/18 05:00 83 02/15/18 04:00 76 02/15/18 04:00 98.2 76 18 142/77 (98) 98 02/15/18 03:00 81 02/15/18 02:00 85 02/15/18 01:00 87 02/15/18 00:00 80 02/15/18 00:00 98.2 80 18 104/60 (75) 97 02/15/18 00:00 Room Air 02/14/18 23:00 81 02/14/18 22:00 75 02/14/18 21:00 79 02/14/18 20:00 98.5 76 18 119/62 (81) 96 02/14/18 20:00 76 02/14/18 18:00 72 02/14/18 17:00 80 02/14/18 16:00 76 02/14/18 15:15 98.7 75 16 113/65 (81) 98 02/14/18 15:00 74 02/14/18 14:00 82 02/14/18 13:00 84 02/14/18 12:00 82 I/O 02/14/18 02/14/18 02/14/18 02/15/18 02/15/18 02/15/18 07:00 15:00 23:00 07:00 15:00 23:00 Intake Total 610 ml 860 ml 620 ml Output Total 1100 ml 850 ml 1000 ml Balance -490 ml 10 ml -380 ml Intake Oral 480 ml 860 ml 480 ml IV Total 130 ml 140 ml Output Urine Total 1100 ml 850 ml 1000 ml # Bowel Movements 0 0 (Fannie Calvillo MD R1) Result Diagram: 02/15/1831602/15/18316 Imaging Last [address] 02/14/18 0000 Signed Impressions: Service Date/Time: Wednesday, February 14, 2018 08:03 - CONCLUSION: 1. Extensive coronary artery calcifications. 2. The lungs are clear and there is no acute or pulmonary disease. Kamari Sabillon MD Lower Extremity Ultrasound 02/13/18 0000 Signed Impressions: Service Date/Time: Tuesday, February 13, 2018 19:33 - CONCLUSION: Greater saphenous vein measurements as delineated above. Hasmukh Shi MD Lower Extremity Ultrasound 02/13/18 0000 Signed Impressions: Service Date/Time: Tuesday, February 13, 2018 18:29 - CONCLUSION: 1. No DVT. 2. 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 Hasmukh Shi MD Objective Remarks GENERAL: This is a well-nourished, well-developed, morbidly obese patient, in no apparent distress. SKIN: Warm and dry. Extensive bruising over groin and proximal lower extremity on right extending circumferentially. Bruising is dark purple in color with yellow components today. Skin on right, lateral thigh is swollen and taut. HEAD: Atraumatic. Normocephalic. EYES: Pupils equal round. Extraocular motions intact. No scleral icterus. No injection or drainage. ENT: Nose without bleeding, purulent drainage or septal hematoma. Airway patent. NECK: Supple, nontender, no meningeal signs. CARDIOVASCULAR: Regular rate. 2 out of 6 systolic ejection murmur. No gallops or rubs. RESPIRATORY: Clear to auscultation anteriorly. Breath sounds equal bilaterally. No wheezes, rales, or rhonchi. GASTROINTESTINAL: Abdomen soft, non-tender, nondistended. MUSCULOSKELETAL: Extremities without clubbing, cyanosis. No joint tenderness, effusion, or edema noted. No calf tenderness. NEUROLOGICAL: Awake and alert. Cranial nerves II through XII intact. Motor and sensory grossly within normal limits. Normal speech. Procedures Cardiac catheterization 02/09. Cardiac catheterization 02/12. CABG planned for 02/16. Medications and IVs Current Medications Medications (Trade) Dose Ordered Sig/Marilyn Route Start Time Stop Time Status Last Admin (Lipitor) 40 mg HS PO 02/06/18 21:00 02/14/18 19:57 (Lasix) 20 mg DAILY PO 02/06/18 11:30 02/15/18 08:52 (Lopressor) 100 mg TID PO 02/06/18 13:00 02/15/18 08:52 (KCl) 10 meq DAILY PO 02/06/18 11:30 02/15/18 08:52 (Xarelto) 20 mg DAILY PO 02/06/18 12:00 Future Hold 02/06/18 11:57 (Nitroglycerin 2% Oint) 0.5 inch Q6HR PRN TOP 02/06/18 11:15 (Morphine Inj) 2 mg Q1HR PRN IV PUSH 02/06/18 11:15 02/14/18 03:43 (Narcan Inj) 0.4 mg UNSCH PRN IV PUSH 02/06/18 11:15 (Loraine-Colace) 1 tab BID PO 02/06/18 21:00 02/15/18 08:52 (Milk Of Magnesia Liq) 30 ml Q12H PRN PO 02/06/18 11:15 02/07/18 08:49 (Senokot) 17.2 mg Q12H PRN PO 02/06/18 11:15 (Dulcolax Supp) 10 mg DAILY PRN RECTAL 02/06/18 11:15 (Lactulose Liq) 30 ml DAILY PRN PO 02/06/18 11:15 (NovoLOG SUPPLEMENTAL SCALE) 1 ACHS SLIDING SCALE SQ 02/06/18 12:00 02/15/18 08:00 (D50w (Vial) Inj) 50 ml UNSCH PRN IV PUSH 02/06/18 12:00 (Glucagon Inj) 1 mg UNSCH PRN OTHER 02/06/18 12:00 (Aspirin Chew) 81 mg DAILY CHEW 02/07/18 10:30 02/15/18 08:52 (Motrin) 400 mg Q4HR PRN PO 02/09/18 22:00 02/14/18 20:02 (Atropine Inj) 0.5 mg UNSCH PRN IV 02/12/18 16:45 (Heparin Inj) 2,500 units UNSCH PRN IV PUSH 02/12/18 23:00 02/14/18 21:55 Heparin Sodium/ Dextrose 250 ml @ 10 mls/hr TITRATE PRN IV 02/12/18 23:00 02/15/18 09:47 (Heparin Inj) 5,000 units UNSCH PRN IV PUSH 02/12/18 17:00 (NS Flush) 2 ml BID IV FLUSH 02/13/18 21:00 02/15/18 08:52 (NS Flush) 2 ml UNSCH PRN IV FLUSH 02/13/18 10:30 Vancomycin HCl 1000 mg/Sodium Chloride 1,000 ml @ 0 mls/hr TRANSCRIPTION IRRIGATION 02/13/18 10:30 02/20/18 10:29 Vancomycin HCl 1750 mg/Sodium Chloride 517.5 ml @ 258.75 mls/ hr TRANSCRIPTION IV 02/13/18 10:30 02/20/18 10:29 (Lopressor) 12.5 mg TRANSCRIPTION PO 02/13/18 10:30 02/20/18 10:29 (Hibiclens 4% Top Soln) 1 applic TRANSCRIPTION TOPICAL 02/13/18 10:30 02/20/18 10:29 Insulin Human Regular 100 units/ Sodium Chloride 100 ml @ 3 mls/hr TITRATE PRN IV 02/13/18 10:30 02/20/18 10:29 (D50w (Vial) Inj) 50 ml UNSCH PRN IV PUSH 02/13/18 10:30 Papaverine HCl 60 mg/Nitroglycerin 100 mcg/Verapamil HCl 100 mg/Sodium Chloride 100 ml @ 0 mls/hr TRANSCRIPTION IRRIGATION 02/15/18 08:30 02/20/18 10:29 Sodium Chloride 250 ml @ 15 mls/hr ONCE ONCE IV 02/15/18 11:15 02/16/18 03:54 (Fannie Calvillo MD R1) Urinary Catheter: No (Fannie Calvillo MD R1) Vascular Central Line Catheter: No (Fannie Calvillo MD R1) A/P Assessment and Plan Patient is a 77 year old male with a past medical history significant of A.fib s /p ablation and electrocardioversion and current anticoagulation, CAD s/p VA with stent placement, CHF, DM Type II, HTN and hyperlipidemia who presents with chest discomfort and shortness of breath for approximately two hours on the day of admission. Troponin increased to 5.57 and an EKG showed ST segment depressions in lateral/junctional leads. Cardiac catheterization with cardiology on Friday02/09/2018 revealing severe three-vessel CAD, repeat coronary angiogram on 02/12 confirmed severe three-vessel CAD. Not amenable to PCI. Patient will be referred for bypass surgery; CABG scheduled for 02/16. Discharge Planning Pending cardiac clearance for discharge. (Fannie Calvillo MD R1) Attending Attestation Pt. seen, examined and discussed with Drs. Calvillo and Janet. Pt. gets SOB when ambulating to . He reports still some fullness in the right groin with hip flexion. Anticipating relief after CABG. Son and with patient. I agree with exam findings as documented. Extravasation of blood to right buttock, groin, scrotum and leg to mid-calf from heart cath. Pt. had been on Xarelto, now on heparin. CABG tomorrow. Discussed with his nurse who will transport him to this afternoon. Pt understands reason for transfusion of 1 unit prbc today. (Cecy Sosa MD) Problem List: (1) Non-STEMI (non-ST elevated myocardial infarction) ICD Codes: I21.4 - Non-ST elevation (NSTEMI) myocardial infarction Status: Acute Plan: EKG with lateral lead (V4, V5) ST depression. Repeat EKG without evidence of ST elevation or depression. Troponin DOWNTRENDIN.32 -> 5.57 --> 4.59 --> 3.22. CK-MB DOWNTRENDIN.5 -> 17.6 --> 15.9. Despite significant increase in cardiac enzymes, patient denies chest pain and associated symptoms. Severe 3 vessel CAD, scheduled for bypass on 02/16; not amenable for PCI. Per cardiology: * Xarelto held 02/06. * Placed on heparin drip. (2) History of atrial fibrillation ICD Codes: Z86.79 - Personal history of other diseases of the circulatory system Status: Acute Plan: Patient with history of A.fib s/p ablations x3 and electrocardioversion. Episodes of V. tach on 02/11, asymptomatic (1 episode of flutter on 02/11). * Continue recommendations per cardiology. (3) CHF (congestive heart failure) ICD Codes: I50.9 - Heart failure, unspecified Plan: Patient with history of CHF. BNP on admission 31. ECHO CONCLUSIONS 02/06: * Normal left ventricular size and wall thickness. * The left ventricular systolic function is normal with an estimated ejection fraction in the range of 60-65%. * No definite wall motion abnormalities. * Moderate mitral annular calcification. * Diffuse mild calcification of the aortic valve. (4) Traumatic ecchymosis of right lower leg ICD Codes: S80.11XA - Contusion of right lower leg, initial encounter Plan: Patient with extensive bruising of his groin and proximal lower extremity on right, following cardiac catheterization on 02/09. Bruising has extended following cardiac catheterization on 02/12. Patient reports some pain associated with bruising. Hgb 11.8 -> 10 -> 9.7 -> 9.2 -> 8.5 -> 8.2. Will transfuse 1 unit of PRBC in anticipation of CABG tomorrow. Follow-up post- transfusion H&H. Ultrasound Leg Venous Doppler Bilateral 02/13: * There is a 8.4 x 6.8 x 5.5 cm pseudoaneurysm involving the right common femoral artery. This is a small amount flow seen within the base. The rest of the pseudoaneurysm is thrombosed. * No evidence of LE DVT bilaterally. (5) Hypertension ICD Codes: I10 - Essential (primary) hypertension Status: Chronic Plan: Patient with history of hypertension. * Continue home meds. (6) Diabetes mellitus ICD Codes: E11.9 - Type 2 diabetes mellitus without complications Status: Acute Plan: Patient with history of pre-diabetes, per patient. Patient with history of diabetes, per chart. Bedside glucose (24hr): 146-201. * Hemoglobin A1C 5.8 * Held home meds. * Low NovoLOG Scale. (7) Hyperlipidemia ICD Codes: E78.5 - Hyperlipidemia, unspecified Status: Chronic Plan: Patient with history of hyperlipidemia. * Continue home meds. (8) SATURNINO (acute kidney injury) ICD Codes: N17.9 - Acute kidney failure, unspecified Status: Resolved Plan: Resolved. 1.42 on admission. (9) Fluid, Nutrition, Electrolyte, and Prophylaxis Status: Acute Plan: Fluid: * Encourage PO fluids. Nutrition: * Heart healthy diet. Electrolyte: * Monitor and replete as necessary. Prophylaxis: * SCDs. * Heparin drip per cardiology. (Fannie Calvillo MD R1) Problem Qualifiers (1) Hypertension: Qualified Codes: I10 - Essential (primary) hypertension (2) Hyperlipidemia: Qualified Codes: E78.2 - Mixed hyperlipidemia Fannie Calvillo MD R1 Feb 15, 2018 11:52 Cecy Sosa MD Feb 15, 2018 13:46
[2018-02-15] MEDS: HEPARIN SODIUM - IV 10,000 UNITS/10 ML VIAL IV PUSH PRN (12:58)
[2018-02-15] MEDS: IBUPROFEN 400 MG TAB PO PRN (19:58)
[2018-02-15] MEDS: ATORVASTATIN 40 MG TAB PO SCH (19:59)
[2018-02-15] MEDS: MORPHINE SULFATE 4 MG/ML INJ IV PUSH PRN (21:47)
[2018-02-15] MEDS: METOPROLOL TARTRATE 5 MG/5 ML VIAL IV PUSH ONE ×2 (22:15→23:01)
[2018-02-15] MEDS ORDERED: CHLORHEXIDINE GLUCONATE 2 % 1 PACK (2 CLOTHS) TOPICAL PRN (23:00)
[2018-02-15] MEDS ORDERED: LACTATED RINGER'S 1000 ML IV PRN (23:00)
[2018-02-15] MEDS ORDERED: SODIUM CHLORID 0.9% 500 ML IV PRN (23:00)
[2018-02-15] MEDS ORDERED: POVIDONE IODINE 5% (ANTISEPSIS KIT) 4 APPLICATIONS EACH NARE PRN (23:00)
--- NOTE | 2018-02-15 23:36 | PD.CONS ---
[facility] Service Critical Care Medicine Consult Requested By Primary Care Physician Alvin Mcdermott DO History of Present Illness 77-year-old male with a history of atrial fibrillation, diabetes mellitus, hypertension, hyperlipidemia, admitted with complaints of chest pain. He was taken initially to the lab director on 02/09/2018 and was found to have severe 3- vessel disease also heavily thrombosed ostial to the proximal right coronary artery, questionable lesion at the ostium of the LAD. EF is 65. He was initially placed on anticoagulation for 2-3 days and relook of the right coronary artery and intravascular ultrasound imaging of the LAD. The patient developed a right groin hematoma and was taken back to cardiac catheterization lab on the 02/12/2018 after being on heparin for 2 days. The left main had about a 15% stenosis, and a widely patent stent in the LAD. The second diagonal had a 60-70% ostial stenosis. The left circumflex had a 70% stenosis. There were collaterals from the left circumflex to the distal right. The RCA was 95% occluded. The very proximal/ostial right coronary disease would not be amenable to percutaneous coronary intervention and the patient was referred for bypass surgery. Today late at night he has developed uncontrolled tachycardia at the rate of 140s and the critical care medicine was consulted by patient's answering service operator Dr. Franz for management of tachycardia. During my assessment the patient is sitting in the chair after getting a bath with a heart rate in 80s and blood pressure 96/68 in no acute distress. Review of Systems Constitutional: COMPLAINS OF: Diaphoretic episodes, DENIES: Fatigue, Fever, Weight gain, Weight loss, Chills, Dizziness, Change in appetite, Night Sweats Endocrine: DENIES: Heat/cold intolerance, Polydipsia, Polyuria, Polyphagia Eyes: DENIES: Blurred vision, Diplopia, Eye inflammation, Eye pain, Vision loss , Photosensitivity, Double Vision Ears, nose, mouth, throat: DENIES: Tinnitus, Hearing loss, Vertigo, Nasal discharge, Oral lesions, Throat pain, Hoarseness, Ear Pain, Running Nose, Epistaxis, Sinus Pain, Toothache, Odynophagia Respiratory: COMPLAINS OF: Shortness of breath, DENIES: Apneas, Cough, Snoring , Wheezing, Hemoptysis, Sputum production Cardiovascular: COMPLAINS OF: Chest pain, Palpitations, DENIES: Syncope, Dyspnea on Exertion, PND, Lower Extremity Edema, Orthopnea, Claudication Gastrointestinal: DENIES: Abdominal pain, Black stools, Bloody stools, Constipation, Diarrhea, Nausea, Vomiting, Difficulty Swallowing, Anorexia Genitourinary: DENIES: Sexual dysfunction, Urinary frequency, Urinary incontinence, Urgency, Hematuria, Dysuria, Nocturia, Penile Discharge, Testicular Pain, Testicular Swelling Musculoskeletal: DENIES: Joint pain, Muscle aches, Stiffness, Joint Swelling, Back pain, Neck pain Integumentary: DENIES: Abnormal pigmentation, Nail changes, Pruritus, Rash Hematologic/lymphatic: DENIES: Bruising, Lymphadenopathy Immunologic/allergic: DENIES: Eczema, Urticaria Neurologic: DENIES: Abnormal gait, Headache, Localized weakness, Paresthesias, Seizures, Speech Problems, Tremor, Poor Balance Psychiatric: DENIES: Anxiety, Confusion, Mood changes, Depression, Hallucinations, Agitation, Suicidal Ideation, Homicidal Ideation, Delusions Past Family Social History Allergies: Coded Allergies: penicillin G (Unverified Allergy, Mild, RASH, 02/06/18) Past Medical History Atrial fibrillation status post ablation in [address] Franz History of prior [place] in 2011, CHF, hyperlipidemia, hypertension, morbid obesity, peripheral neuropathy, peripheral arterial disease, tremors, renal insufficiency, Past Surgical History Include cardiac catheterization, ablation, stent to the LAD, left knee surgery for removal of a jesse wire many years ago, pilonidal cyst. Reported Medications Current Medications Medications (Trade) Dose Ordered Sig/Marilyn Route PRN Reason Start Time Stop Time Status Last Admin Dose Admin Atorvastatin Calcium (Lipitor) 40 mg HS PO 02/06/18 21:00 02/15/18 19:59 Furosemide (Lasix) 20 mg DAILY PO 02/06/18 11:30 02/15/18 08:52 Metoprolol Tartrate (Lopressor) 100 mg TID PO 02/06/18 13:00 02/15/18 17:08 Potassium Chloride (KCl) 10 meq DAILY PO 02/06/18 11:30 02/15/18 08:52 Rivaroxaban (Xarelto) 20 mg DAILY PO 02/06/18 12:00 Future Hold 02/06/18 11:57 Nitroglycerin (Nitroglycerin 2% Oint) 0.5 inch Q6HR PRN TOP Chest pain 02/06/18 11:15 Morphine Sulfate (Morphine Inj) 2 mg Q1HR PRN IV PUSH CHEST PAIN 02/06/18 11:15 02/15/18 21:47 Naloxone HCl (Narcan Inj) 0.4 mg UNSCH PRN IV PUSH SEE LABEL COMMENTS 02/06/18 11:15 Senna/Docusate Sodium (Loraine-Colace) 1 tab BID PO 02/06/18 21:00 02/15/18 19:59 Magnesium Hydroxide (Milk Of Magnesia Liq) 30 ml Q12H PRN PO Mild constipation 02/06/18 11:15 02/07/18 08:49 Sennosides (Senokot) 17.2 mg Q12H PRN PO Moderate constipation 02/06/18 11:15 Bisacodyl (Dulcolax Supp) 10 mg DAILY PRN RECTAL SEVERE CONSITIPATION 02/06/18 11:15 Lactulose (Lactulose Liq) 30 ml DAILY PRN PO SEVERE CONSITIPATION 02/06/18 11:15 Insulin Aspart (NovoLOG SUPPLEMENTAL SCALE) 1 ACHS SLIDING SCALE SQ 02/06/18 12:00 02/15/18 12:00 Dextrose (D50w (Vial) Inj) 50 ml UNSCH PRN IV PUSH HYPOGLYCEMIA - SEE COMMENTS 02/06/18 12:00 Glucagon (Glucagon Inj) 1 mg UNSCH PRN OTHER HYPOGLYCEMIA-SEE COMMENTS 02/06/18 12:00 Aspirin (Aspirin Chew) 81 mg DAILY CHEW 02/07/18 10:30 02/15/18 08:52 Ibuprofen (Motrin) 400 mg Q4HR PRN PO Back Pain 02/09/18 22:00 02/15/18 19:58 Atropine Sulfate (Atropine Inj) 0.5 mg UNSCH PRN IV VAGAL REPONSE 02/12/18 16:45 Heparin Sodium (Porcine) (Heparin Inj) 2,500 units UNSCH PRN IV PUSH APTT 25 TO 39 02/12/18 23:00 02/15/18 12:58 Heparin Sodium/ Dextrose 250 ml @ 10 mls/hr TITRATE PRN IV Coagulation Management 02/12/18 23:00 02/15/18 09:47 Heparin Sodium (Porcine) (Heparin Inj) 5,000 units UNSCH PRN IV PUSH APTT LESS THAN 25 02/12/18 17:00 Sodium Chloride (NS Flush) 2 ml BID IV FLUSH 02/13/18 21:00 02/15/18 19:59 Sodium Chloride (NS Flush) 2 ml UNSCH PRN IV FLUSH FLUSH AFTER USING IV ACCESS 02/13/18 10:30 Vancomycin HCl 1000 mg/Sodium Chloride 1,000 ml @ 0 mls/hr HORSE SHOER IRRIGATION 02/13/18 10:30 02/20/18 10:29 Vancomycin HCl 1750 mg/Sodium Chloride 517.5 ml @ 258.75 mls/ hr HORSE SHOER IV 02/13/18 10:30 02/20/18 10:29 Metoprolol Tartrate (Lopressor) 12.5 mg HORSE SHOER PO 02/13/18 10:30 02/20/18 10:29 Chlorhexidine Gluconate (Hibiclens 4% Top Soln) 1 applic HORSE SH[employer]ER TOPICAL 02/13/18 10:30 02/20/18 10:29 Insulin Human Regular 100 units/ Sodium Chloride 100 ml @ 3 mls/hr TITRATE PRN IV for blood glucose control 02/13/18 10:30 02/20/18 10:29 Dextrose (D50w (Vial) Inj) 50 ml UNSCH PRN IV PUSH HYPOGLYCEMIA-SEE COMMENTS 02/13/18 10:30 Papaverine HCl 60 mg/Nitroglycerin 100 mcg/Verapamil HCl 100 mg/Sodium Chloride 100 ml @ 0 mls/hr HORSE SHOER IRRIGATION 02/15/18 08:30 02/20/18 10:29 Sodium Chloride 250 ml @ 15 mls/hr ONCE ONCE IV 02/15/18 11:15 02/16/18 03:54 02/15/18 15:19 Lactated Ringer's 1,000 ml @ 30 mls/hr Q24H PRN IV SEE LABEL COMMENTS 02/15/18 23:00 02/18/18 22:59 Sodium Chloride 500 ml @ 30 mls/hr [id number] PRN IV SEE LABEL COMMENTS 02/15/18 23:00 02/18/18 22:59 Povidone Iodine (Betadine 5% Antisepsis Kit) 1 applic HORSE SHOER PRN EACH NARE SEE LABEL COMMENTS 02/15/18 23:00 02/18/18 22:59 Chlorhexidine Gluconate (Chlorhexidine 2% Cloth) 3 pack HORSE SHOER PRN TOPICAL SEE LABEL COMMENTS 02/15/18 23:00 02/18/18 22:59 Active Ordered Medications Current Medications Medications (Trade) Dose Ordered Sig/Marilyn Route PRN Reason Start Time Stop Time Status Last Admin Dose Admin Atorvastatin Calcium (Lipitor) 40 mg HS PO 02/06/18 21:00 02/15/18 19:59 Furosemide (Lasix) 20 mg DAILY PO 02/06/18 11:30 02/15/18 08:52 Metoprolol Tartrate (Lopressor) 100 mg TID PO 02/06/18 13:00 02/15/18 17:08 Potassium Chloride (KCl) 10 meq DAILY PO 02/06/18 11:30 02/15/18 08:52 Rivaroxaban (Xarelto) 20 mg DAILY PO 02/06/18 12:00 Future Hold 02/06/18 11:57 Nitroglycerin (Nitroglycerin 2% Oint) 0.5 inch Q6HR PRN TOP Chest pain 02/06/18 11:15 Morphine Sulfate (Morphine Inj) 2 mg Q1HR PRN IV PUSH CHEST PAIN 02/06/18 11:15 02/15/18 21:47 Naloxone HCl (Narcan Inj) 0.4 mg UNSCH PRN IV PUSH SEE LABEL COMMENTS 02/06/18 11:15 Senna/Docusate Sodium (Loraine-Colace) 1 tab BID PO 02/06/18 21:00 02/15/18 19:59 Magnesium Hydroxide (Milk Of Magnesia Liq) 30 ml Q12H PRN PO Mild constipation 02/06/18 11:15 02/07/18 08:49 Sennosides (Senokot) 17.2 mg Q12H PRN PO Moderate constipation 02/06/18 11:15 Bisacodyl (Dulcolax Supp) 10 mg DAILY PRN RECTAL SEVERE CONSITIPATION 02/06/18 11:15 Lactulose (Lactulose Liq) 30 ml DAILY PRN PO SEVERE CONSITIPATION 02/06/18 11:15 Insulin Aspart (NovoLOG SUPPLEMENTAL SCALE) 1 ACHS SLIDING SCALE SQ 02/06/18 12:00 02/15/18 12:00 Dextrose (D50w (Vial) Inj) 50 ml UNSCH PRN IV PUSH HYPOGLYCEMIA - SEE COMMENTS 02/06/18 12:00 Glucagon (Glucagon Inj) 1 mg UNSCH PRN OTHER HYPOGLYCEMIA-SEE COMMENTS 02/06/18 12:00 Aspirin (Aspirin Chew) 81 mg DAILY CHEW 02/07/18 10:30 02/15/18 08:52 Ibuprofen (Motrin) 400 mg Q4HR PRN PO Back Pain 02/09/18 22:00 02/15/18 19:58 Atropine Sulfate (Atropine Inj) 0.5 mg UNSCH PRN IV VAGAL REPONSE 02/12/18 16:45 Heparin Sodium (Porcine) (Heparin Inj) 2,500 units UNSCH PRN IV PUSH APTT 25 TO 39 02/12/18 23:00 02/15/18 12:58 Heparin Sodium/ Dextrose 250 ml @ 10 mls/hr TITRATE PRN IV Coagulation Management 02/12/18 23:00 02/15/18 09:47 Heparin Sodium (Porcine) (Heparin Inj) 5,000 units UNSCH PRN IV PUSH APTT LESS THAN 25 02/12/18 17:00 Sodium Chloride (NS Flush) 2 ml BID IV FLUSH 02/13/18 21:00 02/15/18 19:59 Sodium Chloride (NS Flush) 2 ml UNSCH PRN IV FLUSH FLUSH AFTER USING IV ACCESS 02/13/18 10:30 Vancomycin HCl 1000 mg/Sodium Chloride 1,000 ml @ 0 mls/hr HORSE [employer]ER IRRIGATION 02/13/18 10:30 02/20/18 10:29 Vancomycin HCl 1750 mg/Sodium Chloride 517.5 ml @ 258.75 mls/ hr HORSE SHOER IV 02/13/18 10:30 02/20/18 10:29 Metoprolol Tartrate (Lopressor) 12.5 mg HORSE SHOER PO 02/13/18 10:30 02/20/18 10:29 Chlorhexidine Gluconate (Hibiclens 4% Top Soln) 1 applic HORSE [employer] TOPICAL 02/13/18 10:30 02/20/18 10:29 Insulin Human Regular 100 units/ Sodium Chloride 100 ml @ 3 mls/hr TITRATE PRN IV for blood glucose control 02/13/18 10:30 02/20/18 10:29 Dextrose (D50w (Vial) Inj) 50 ml UNSCH PRN IV PUSH HYPOGLYCEMIA-SEE COMMENTS 02/13/18 10:30 Papaverine HCl 60 mg/Nitroglycerin 100 mcg/Verapamil HCl 100 mg/Sodium Chloride 100 ml @ 0 mls/hr HORSE [employer]ER IRRIGATION 02/15/18 08:30 4/27/18 10:29 Sodium Chloride 250 ml @ 15 mls/hr ONCE ONCE IV 02/15/18 11:15 02/16/18 03:54 02/15/18 15:19 Lactated Ringer's 1,000 ml @ 30 mls/hr Q24H PRN IV SEE LABEL COMMENTS 02/15/18 23:00 02/18/18 22:59 Sodium Chloride 500 ml @ 30 mls/hr [id number] PRN IV SEE LABEL COMMENTS 02/15/18 23:00 02/18/18 22:59 Povidone Iodine (Betadine 5% Antisepsis Kit) 1 applic HORSE [employer]ER PRN EACH NARE SEE LABEL COMMENTS 02/15/18 23:00 02/18/18 22:59 Chlorhexidine Gluconate (Chlorhexidine 2% Cloth) 3 pack HORSE SHOER PRN TOPICAL SEE LABEL COMMENTS 02/15/18 23:00 02/18/18 22:59 Family History Mother from breast cancer. Father following ulcer surgery, had apparently a cardiac arrest. Social History The patient is and has 4 children. Retired from [employer]. Smoked for about 25 years, 1 pack, quit at age 38. No alcohol. Physical Exam Vital Signs Vital Signs Date Time Temp Pulse Resp B/P (MAP) Pulse Ox O2 Delivery O2 Flow Rate FiO2 02/15/18 18:26 98.1 92 18 156/76 94 02/15/18 18:00 78 02/15/18 17:00 74 02/15/18 16:00 72 02/15/18 15:37 98.7 74 18 122/60 91 02/15/18 15:19 98.2 84 18 122/63 93 02/15/18 15:00 75 02/15/18 15:00 98.1 81 16 136/68 (90) 98 02/15/18 14:00 78 02/15/18 13:00 88 02/15/18 12:00 78 02/15/18 11:00 98.0 87 16 104/60 (75) 91 02/15/18 11:00 85 02/15/18 10:00 80 02/15/18 09:00 100 02/15/18 08:00 108 02/15/18 07:05 97.8 109 18 151/91 (111) 98 02/15/18 07:05 Room Air 02/15/18 07:00 81 02/15/18 06:00 92 02/15/18 05:00 83 02/15/18 04:00 76 02/15/18 04:00 98.2 76 18 142/77 (98) 98 02/15/18 03:00 81 02/15/18 02:00 85 02/15/18 01:00 87 02/15/18 00:00 80 02/15/18 00:00 98.2 80 18 104/60 (75) 97 02/15/18 00:00 Room Air Physical Exam GENERAL: Morbidly obese well-developed patient in no acute distress. SKIN: Warm and dry. HEAD: Normocephalic. EYES: No scleral icterus. No injection or drainage. NECK: Supple, trachea midline. No JVD or lymphadenopathy. CARDIOVASCULAR: Regular rate and rhythm without murmurs, gallops, or rubs. RESPIRATORY: Breath sounds equal bilaterally. No accessory muscle use. GASTROINTESTINAL: Abdomen soft, non-tender, nondistended. MUSCULOSKELETAL: No cyanosis, or edema. BACK: Nontender without obvious deformity. NEURO EXAM: GCS: 15 Mental Status: The patient is alert and oriented to person, place, and time with normal speech. Cranial Nerves: Visual acuity intact bilaterally. Visual blue normal in all quadrants. Pupils are round, reactive to light. Extraocular movements are intact without ptosis. Hearing is normal bilaterally. Voice is normal. Tongue protrudes midline and moves symmetrically. Laboratory Laboratory Tests Test 02/15/18 03:17 02/15/18 10:45 02/15/18 15:15 White Blood Count 14.9 Red Blood Count 2.59 Hemoglobin 8.2 Hematocrit 24.0 Mean Corpuscular Volume 92.6 Mean Corpuscular Hemoglobin 31.6 Mean Corpuscular Hemoglobin Concent 34.1 Red Cell Distribution Width 14.1 Platelet Count 162 Mean Platelet Volume 8.7 Activated Partial Thromboplast Time 76.9 36.9 48.1 Blood Urea Nitrogen 17 Creatinine 0.88 Random Glucose 119 Calcium Level 8.0 Sodium Level 141 Potassium Level 3.6 Chloride Level 103 Carbon Dioxide Level 31.1 Anion Gap 7 Estimat Glomerular Filtration Rate 84 Result Diagram: 02/15/187 02/15/18316 Assessment and Plan Assessment and Plan Coronary artery disease -Severe triple-vessel disease -CABG a.m. per CT surgery -Nitroglycerin as needed -Atorvastatin -Management per answering service operator and CT surgeon Atrial fibrillation with RVR -Rate controlled post IV Lopressor administration -Status post ablation twice by Dr. Franz -Continue Lopressor as needed -Xarelto on hold for CABG -Management per cardiology Hyperlipidemia -Atorvastatin Hypertension -Lasix -Metoprolol Hyperglycemia -Insulin sliding scale Chronic renal insufficiency -Is and O's -Monitor creatinine and electrolytes levels -Electrolyte replacement per ICU protocol DVT GI prophylaxis -Pawan's and SCDs -Pharmacological DVT prophylaxis per answering service operator and surgeon -Pepcid when intubated Level 2 Patient has been hemodynamically stable, rate controlled, comfortable on nasal cannula, not on pressors. Critical care medicine will sign off. Please reconsult us if needed. Thank you very much Dr. Franz for allowing us to participate in care of this pleasant gentleman. James Rushing MD Feb 15, 2018 11:36 pm
[2018-02-16] VITALS (27 sets, daily range): BP systolic 50–126; BP diastolic 50–70; PULSE 65–114; RESP 14–22; TEMP 96.7–98.6; O2SAT 92–99
[2018-02-16] MEDS ORDERED: HEPARIN SODIUM - SQ 10,000 UNITS/ML VIAL ONE (06:14)
[2018-02-16] MEDS ORDERED: methylPREDNISolone SOD SUCC 125 MG/2 ML VIAL ONE (06:14)
[2018-02-16] MEDS ORDERED: ceFAZolin 2 GM PREMIX 0 ML ONE (06:15)
[2018-02-16] MEDS ORDERED: VANCOMYCIN HCL 1000 MG VIAL ONE (06:15)
[2018-02-16] MEDS ORDERED: CARDIOPLEGIC IRR 2,000 ML ONE (07:18)
[2018-02-16] MEDS ORDERED: POTASSIUM CHLOR 40 MEQ PREMIX 200 ML ONE (07:19)
[2018-02-16] MEDS ORDERED: ALBUMIN 25% INJ 50 ML IV ONE (07:20)
[2018-02-16] MEDS ORDERED: MANNITOL INJ 100 ML ONE (07:20)
[2018-02-16] MEDS ORDERED: HEPARIN SODIUM - IV 10,000 UNITS/10 ML VIAL ONE (07:20)
--- NOTE | 2018-02-16 08:57 | PD.CAR.PN ---
CVT Progress Note Subjective/Hospital Course: 77-year-old patient of Dr. Tanesha Gomez and Dr. Alvin Mcdermott. The patient presented with a non-ST segment OR. He was admitted on the 02/06/2018. Apparently woke up early a.m. He apparently goes to bed very late about 2 a.m. and about 4 a.m., he woke up with significant heartburn, which persisted. He went to check his blood pressure, which was over 200 systolic, so his brought him into the emergency room. Pain was also moderate to severe substernal into the left chest, nonradiating. He has a prior history of coronary artery disease with OR and stent to the LAD 10/2011. Patient initially went to the cardiac cath technologist on 02/09/2018 and was found to have severe 3- vessel disease also heavily thrombosed ostial to the proximal right coronary artery, questionable lesion at the ostium of the LAD. EF is 65. The decision was to place the patient on anticoagulation for 2-3 days and relook of the right coronary artery and possibly perform intravascular ultrasound imaging of the LAD. The patient developed a right groin hematoma post and then went back on the 02/12/2018 after being on heparin for 2 days. The left main had about a 15% stenosis, and a widely patent stent in the LAD. The second diagonal had a 60-70% ostial stenosis. The left circumflex had a 70% stenosis. There were collaterals from the left circumflex to the distal right. The RCA was 95% occluded. PAST MEDICAL HISTORY: Includes atrial fibrillation with prior ablation [address] Franz. He is on Xarelto at home for that. He has since been off the Xarelto since the 02/05/2018. He is also on Tikosyn which his last dose was on 02/05/2018. History of prior OR in 2011, CHF, hyperlipidemia, hypertension, morbid obesity, peripheral neuropathy, peripheral arterial disease , tremors, renal insufficiency, PAST SURGICAL HISTORY: Include cardiac catheterization, ablation, stent to the LAD, 02/15/18 Denies chest pain. Anemic with HCT 24%. He will require blood products based on ischemic heart disease and CABG. 02/16 for surgery today Objective: Vital Signs Date Time Temp Pulse Resp B/P (MAP) Pulse Ox O2 Delivery O2 Flow Rate FiO2 02/16/18 06:00 92 02/16/18 05:00 89 02/16/18 04:00 98.1 85 20 126/65 (85) 98 02/16/18 04:00 Nasal Cannula 2.00 02/16/18 04:00 85 02/16/18 03:00 79 02/16/18 02:00 82 02/16/18 01:00 78 02/16/18 00:00 98.5 78 20 96/68 (77) 92 02/16/18 00:00 Nasal Cannula 2.00 02/16/18 00:00 78 02/15/18 23:00 142 02/15/18 22:00 140 02/15/18 21:00 150 02/15/18 20:00 83 02/15/18 20:00 98.3 83 18 109/63 (78) 96 02/15/18 20:00 Room Air 02/15/18 20:00 Room Air 02/15/18 18:26 98.1 92 18 156/76 94 02/15/18 18:00 78 02/15/18 17:00 74 02/15/18 16:00 72 02/15/18 15:37 98.7 74 18 122/60 91 02/15/18 15:19 98.2 84 18 122/63 93 02/15/18 15:00 75 02/15/18 15:00 98.1 81 16 136/68 (90) 98 02/15/18 14:00 78 02/15/18 13:00 88 02/15/18 12:00 78 02/15/18 11:00 98.0 87 16 104/60 (75) 91 02/15/18 11:00 85 02/15/18 10:00 80 02/15/18 09:00 100 Labs: Laboratory Tests Test 02/15/18 23:09 Activated Partial Thromboplast Time 38.1 SEC (24.3-30.1) Result Diagram: 02/15/1831602/15/18316 (1) Coronary artery disease (2) Ventricular tachycardia Plan: concerning for torsade - stopped Tikosyn (on BB), no further episodes (3) Hyperlipidemia (4) Hypertension (5) Paroxysmal atrial flutter (6) Paroxysmal atrial fibrillation Plan: stable; on heparin Problem Qualifiers (1) Hyperlipidemia: Qualified Codes: E78.2 - Mixed hyperlipidemia (2) Hypertension: Qualified Codes: I10 - Essential (primary) hypertension Janeen Goel Feb 16, 2018 08:56
[2018-02-16] MEDS: POTASSIUM CHLORIDE 10 MEQ CONTROLLED RELEASE TAB PO SCH (09:00)
[2018-02-16] MEDS: DOCUSATE SODIUM 50 MG/SENNA 8.6 MG TAB PO SCH ×2 (09:00→21:17)
--- NOTE | 2018-02-16 09:02 | HHI.FF ---
Face to Face Verification Diagnosis: (1) S/P CABG (coronary artery bypass graft) (2) ATRIAL FIBRILLATION (3) Hypertension (4) CHF (congestive heart failure) (5) Non-STEMI (non-ST elevated myocardial infarction) (6) SATURNINO (acute kidney injury) (7) Ventricular tachycardia Home Health Nursing Order: Medication education-adverse effect Wound care and dressing changes Nursing assessment with vital signs Instructions: Heart and Vascular Surgery patients *Special attention to sternal dressing Mandatory frequency Assess and evaluation, 4 days in a row The next week 3X week 2 times a week for 4 weeks 1 time a week for 5 weeks Schedule Heart and Vascular patients for full 60 day certification period Initial visit Review Open Heart Surgery Discharge Instructions (Sternal precautions, Activity, Elastic hose, Incision care, Driving, Incentive spirometry, Smoking, [place], Work and other) Need Betadine to paint incision Medication reconciliation Importance of follow up care/ check on appointments Make calendar record temperature daily When to call [facility] nurse, review instructions, phone list Incentive Spirometry, demonstration Visit 1- Begin discharge instruction for patient family and/ or caregiver using teach back method- Signs and symptoms of infection Disease characteristics Medicines and side effects Foods and nutrition/ appetite Infection control/ hand washing/ hygiene Visit 2- Continue teaching Discharge instructions- include additional information on smoking cessation , sternal dressing (sternal vac) Visit 3- Continue teaching- Cough and deep breathing, incision monitoring. Choose my plate Visit 4- Continue teaching- Discuss limitations Discuss how they are feeling Discuss progress toward goals Remaining visits- continue teaching and monitoring For any questions please call : Friday 8am-5pm Heart & Vascular Surgery Office ( Dr. Bonilla & Dr. Campos), After Hours / Nights (5pm -8am) Weekends and Holidays Please call [facility] Cardiac Intermediate Care Unit (CIC) Charge Nurse PREVENA Single Use Negative Wound Therapy System Caregiver Instruction Sheet 1. A Prevena dressing system was applied to the chest incision during surgery , to promote wound healing. It works via a suction device (negative pressure wound therapy) to remove low to moderate levels of exudate (drainage) and infectious materials. We recommend that the device stay in place for up to seven days, from day of surgery. 2. Day of Surgery___/ Day of Removal ____02/23/18 3. The dressing should only be removed by a health child care director. Please arrange removal of device to coincide with Home Health visit and or with Nursing staff at Rehab 4. If skin reddening or irritation of skin occurs, or excessive drainage, please notify the Cardiovascular Surgeons office at [phone]. 5. Light showering is permissible; however the pump should be disconnected and placed in safe location, where it will not get wet. The dressing should not be exposed to direct spray or submerged in water. No bath tub / shower only. Ensure the end of the tubing attached to the dressing is facing down so that water does not enter the top of the tube. 6. To remove Prevena dressing: press purple button to turn off device / remove the suction. Then disconnect the tubing from the pump. The fixation strips should be stretched away from the skin and the dressing lifted at one corner and peeled back until it has been fully removed. 7. After removal, it is ok to shower daily using liquid dial soap and clean wash cloth, rinse and pat dry, and leave incision open to air dry. For any concerns regarding Prevena dressing, and or wounds, please contact Lata Craven, patient navigator at [phone] or notify the Cardiovascular Surgeons office at [phone]. Incentive spirometry Q1 hr x 10, while awake, also use acapella device hourly whole awake Sternal Breast Bone Precautions: NO pushing or pulling, ( pt must use sternal pillow to support chest with all activities and with coughing ( takes up to 3 months breast bone to heal ) All females to wear sternal bra , launder as needed Daily incision care: ok to shower daily, no tub bath. Wash all incisions with liquid dial soap, clean wash cloth to each site, rinse and pat dry. Observe for any signs of infection, such as drainage which is dark yellow, [place], green or foul smelling. Immediately report to the surgeon any drainage from the chest incision, or legs, and for any abnormal drainage from the chest tube sites. Notify surgeon if any temp >101.5 degrees F. When specialty dressing removed/ or if you do not have one, continue to shower daily as above, then rinse and pat incision dry and paint with betadine daily x 5 days. Allow steri strips to fall off if you have any. Avoid lotions, creams, salves, oils, etc. for the first month Please see attached forms for additional instructions regarding post Open Heart specialty wound vacuum dressings. RICCO or Prevena , Dressing to be removed by Nursing staff on __02/23/[address] Campos patients , please obtain CBC, BMP, PA & Lat CXR in 2 weeks, results to Dr. Campos ( prescription will be given) ( ) (Tele: [phone]) , F/U appointment: as per NM instructions: PCP in 2 weeks, CV surgeon 2 weeks, Planning Supervisor 3-4 weeks For any questions regarding incisions/ dressing / meds / post op care or above Symptoms, Friday 8am-5pm Heart & Vascular Surgery Office ( Dr. Bonilla & Dr. Campos), After Hours / Nights (5pm -8am) Weekends and Holidays Please call [facility] Cardiac Intermediate Care Unit (CIC) Charge Nurse I have seen patient Nael Robledo on 02/16/18. My clinical findings support the need for the requested home health care services because: Deconditioned w/ increased weakness I certify that my clinical findings support that this patient is homebound because: Post-op weakness Janeen Goel Feb 16, 2018 09:02
[2018-02-16] MEDS ORDERED: POTASSIUM CHLOR 20 MEQ PREMIX 100 ML ONE (11:37)
[2018-02-16] MEDS ORDERED: TRANEXAMIC ACID INJ 1,000 MG/10 ML AMP IV ONE (12:00)
[2018-02-16] MEDS ORDERED: MAGNESIUM SULFATE 1 GM/2 ML VIAL IV ONE (12:00)
[2018-02-16] MEDS ORDERED: GLYCOPYRROLATE 1 MG/5 ML SYRINGE IV PUSH ONE (12:00)
[2018-02-16] MEDS ORDERED: PHENYLEPH/NS 1000 MCG/10 ML SYR IV ONE (12:00)
[2018-02-16] MEDS ORDERED: EPINEPHrine HCL (1:1000) 1 MG/ML VIAL IV ONE (12:00)
[2018-02-16] MEDS ORDERED: PROTAMINE SULFATE 250 MG/25 ML VIAL IV ONE (12:00)
[2018-02-16] MEDS ORDERED: DEXMEDETOMIDINE HCL 200 MCG/2 ML VIAL IV ONE (12:00)
[2018-02-16] MEDS ORDERED: LACTATED RINGER'S 1000 ML INJ 1,000 ML IV ONE (12:00)
[2018-02-16] MEDS ORDERED: NEOSTIGMINE 5 MG/5 ML SYRINGE IV PUSH ONE (12:00)
[2018-02-16] MEDS ORDERED: HEPARIN SODIUM - SQ 10,000 UNITS/ML VIAL OTHER ONE (12:00)
[2018-02-16] MEDS ORDERED: NS 100 ML (PAB BAG) 200 ML IV ONE (12:00)
[2018-02-16] MEDS ORDERED: PHENYLEPHRINE HCL 10 MG/ML VIAL IV ONE (12:00)
[2018-02-16] MEDS ORDERED: CALCIUM CHLORIDE 10% SOLN 1 GRAM/10 ML SYR IV ONE (12:00)
[2018-02-16] MEDS ORDERED: VECURONIUM BROMIDE 20 MG VIAL IV ONE (12:00)
[2018-02-16] MEDS ORDERED: AMIODARONE HCL 150 MG/3 ML VIAL IV ONE (12:00)
[2018-02-16] MEDS ORDERED: ePHEDrine/NS 25 MG/5 ML SYRINGE IV ONE (12:00)
[2018-02-16] MEDS ORDERED: NORMOSOL R INJ 3,000 ML IV ONE (12:00)
[2018-02-16] MEDS ORDERED: SODIUM BICARBONATE 8.4% INJ 50 MEQ/50 ML SYR IV ONE (12:00)
[2018-02-16] MEDS ORDERED: VECURONIUM BROMIDE 10 MG VIAL IV ONE (12:00)
[2018-02-16] MEDS ORDERED: SODIUM CHLOR 0.9% 250 ML INJ 500 ML IV ONE (12:00)
[2018-02-16] MEDS ORDERED: LACTATED RINGER'S 1000 ML INJ 500 ML IV PRN (12:08)
--- NOTE | 2018-02-16 12:08 | PD.OP ---
cc: Tanesha Gomez MD; Argenis Campos MD; Doni Vizcaino MD; Diann Franz MD Operative Report Date of Surgery: Feb 16, 2018 Preoperative Diagnosis: (1) Non-STEMI (non-ST elevated myocardial infarction) (2) Ventricular tachycardia (3) Paroxysmal atrial fibrillation (4) Coronary artery disease Postoperative Diagnosis: same Procedure: CABG x 3 SVG to OM2 - fair SVG to D@ - good SVG to PDA - good EVH Resection left atrial appendage Sternal plates for closure Anesthesia: Dr. Valdes Surgeon: Argenis Campos Intensive [facility] Paramedic(s): PEPITO Hylton Operation and Findings: The risks, benefits, complications, treatment options, and expected outcomes were discussed with the patient. The possibilities of reaction to medication, pulmonary aspiration, perforation of viscus, bleeding, recurrent infection, the need for additional procedures, failure to diagnose a condition, and creating a complication requiring transfusion or operation were discussed with the patient. The patient concurred with the proposed plan, giving informed consent. The site of surgery properly noted/marked. The patient was taken to Operating Room, identified as Anel Venkat and the procedure verified as CABG, EVH. A Time Out was held and the above information confirmed. The patient has a widely patent LAD sten, so the HINDS was not used. Standard monitoring lines and [place] catheter were placed. General anesthesia was induced. The patient was prepped and draped in a sterile fashion. A median sternotomy was performed and electrocautery was used to obtain hemostasis. Left greater saphenous vein was procured from the left leg using a minimally invasive endoscopic technique. The vein was prepared for anastomosis and the leg wound was irrigated and closed in 2 layers. The pericardium was opened and a pericardial sling was created using interrupted 0 silk sutures. The patient was heparinized for cardiopulmonary bypass and the distal mammary pedicle was instrumented for anastomosis. The heart was instrumented for cardiopulmonary bypass in the usual manner. Antegrade blood cardioplegia was employed. The patient was placed on cardiopulmonary bypass. The left atrial appendage was resected using a surgical stapler. An aortic cross-clamp was applied and the heart was arrested using cold blood cardioplegia. Antegrade cardioplegia was administered after he each anastomosis. After adequate arrest, the distal right coronary circulation was investigated and the PDA was opened with a [place] blade and found to be a 1.5 millimeter good target. Saphenous vein was approximated to the PDA artery using a running 7 0 Prolene suture. The graft was measured for length and orientation and the proximal anastomosis was constructed to the ascending aorta using a running 5 0 Prolene suture after creating an aortotomy with a 5 millimeter punch. The 2nd circumflex marginal artery was then opened with a [place] blade and found to be a 1 millimeter fair target. Saphenous vein was approximated to the OM2 artery using a running 7 0 Prolene suture. The graft was measured for length and orientation and the proximal anastomosis was constructed to the ascending aorta using a running 5 0 Prolene suture after creating an aortotomy with a 5 millimeter punch. The 2nd diagonal artery was then opened with a [place] blade and found to be a 1.5 millimeter good target. Saphenous vein was approximated to the D2 artery using a running 7 0 Prolene suture. The graft was measured for length and orientation and was suspended from the pericardium. The patient was systemically rewarmed and received a hotshot dose of warm blood cardioplegia. The aorta was vented and the proximal anastomosis to the D2 graft was accomplished using a running 5 0 Prolene suture after creating an aortotomy was a 5 millimeter punch. The cross-clamp was removed and all proximal and distal anastomoses were examined for hemostasis. The patient was weaned from cardiopulmonary bypass. Protamine was given. There was no adverse reaction. Decannulation was carried out without incident. Wound was checked for hemostasis which was obtained using electrocautery. A 36 [place] mediastinal and 32 [place] left pleural chest tubes were placed and secured to the skin with 0 silk suture. The sternum was closed with stainless steel wire. Additionally a sternal plating system was used to internally fix the sternal tables due to the patient's morbid obesity. The fascia was closed with 1. PDS. The subcutaneous tissue was closed using a running 2-0 Vicryl suture. The skin was closed with 4- 0 Monocryl. Sterile dressings were placed. At the end of the operation, all sponge, instruments, and needle counts were correct. The patient was transferred to the CVICU in stable condition. Findings: Preserved LV function, Patient left the room in sinus rhythm. XC: 74 min CPB: 86 min Drains: mediastinal x 1 pleural x 1 Specimens: left atrial appendage Implants: 2 sternal plates Complications: none Disposition: to CVICU in stable condition Argenis Campos MD Feb 16, 2018 12:08
[2018-02-16] MEDS ORDERED: RESP: ALBUTEROL 2.5 MG/IPRATROPIUM 0.5 MG NEB (PRN) NEB (12:15)
[2018-02-16] MEDS ORDERED: SODIUM BICARBONATE 8.4% SOLN 50 MEQ/50 ML VIAL IV PUSH PRN ×2 (12:15)
[2018-02-16] MEDS ORDERED: MAGNESIUM SULFATE INJ 2 GM in SODIUM CHLORIDE 0.9% INJ 100 ML IV PRN ×4 (12:15)
[2018-02-16] MEDS ORDERED: CALCIUM CHLORIDE 10% 1 GRAM/10 ML VIAL IV PUSH PRN (12:15)
[2018-02-16] MEDS ORDERED: Post-op Orders (for Pharmacy) OTHER ONE (12:15)
[2018-02-16] MEDS ORDERED: hydrALAZINE HCL 20 MG/ML VIAL IV PUSH PRN (12:15)
[2018-02-16] MEDS ORDERED: DEXTROSE 50% IN WATER 50 ML VIAL(D50) IV PUSH PRN (12:15)
[2018-02-16] MEDS ORDERED: SODIUM CHLORIDE 0.9% FLUSH 10 ML FLUSH IV FLUSH PRN (12:15)
[2018-02-16] MEDS ORDERED: oxyCODONE/ACETAMINOPHEN 5 MG/325 MG TAB PO PRN (12:15)
[2018-02-16] MEDS ORDERED: ACETAMINOPHEN 325 MG TAB PO PRN (12:15)
[2018-02-16] MEDS ORDERED: DEXMEDETOMIDINE INJ 200 MCG in SODIUM CHLORIDE 0.9% INJ 50 ML IV PRN (12:15)
[2018-02-16] MEDS ORDERED: ONDANSETRON HCL 4 MG/2 ML VIAL IV PUSH PRN (12:15)
[2018-02-16] MEDS ORDERED: RESP: RACEPINEPHRINE 2.25% 0.5 ML NEB NEB PRN (12:15)
[2018-02-16] MEDS ORDERED: POTASSIUM CHLORIDE 20 MEQ CONTROLLED RELEASE TAB PO PRN ×2 (12:15)
[2018-02-16] MEDS ORDERED: POTASSIUM CHLOR 20 MEQ PREMIX 100 ML IV PRN ×3 (12:15)
[2018-02-16] MEDS ORDERED: ACETAMINOPHEN 650 MG SUPP RECTAL PRN (12:15)
[2018-02-16] MEDS ORDERED: ALBUMIN 5% INJ 250 ML IV PRN (12:15)
[2018-02-16] MEDS ORDERED: CLEVIDIPINE INJ 50 ML IV PRN (12:15)
[2018-02-16] MEDS ORDERED: INSULIN REGULAR (IV INFUSION) 100 UNITS in SODIUM CHLORIDE 0.9% INJ 99 ML IV PRN (12:15)
[2018-02-16] MEDS ORDERED: MIDAZOLAM HCL 2 MG/2 ML VIAL ONE (12:54)
[2018-02-16] MEDS ORDERED: fentaNYL CITRATE 250 MCG/5 ML AMP ONE ×2 (12:54→12:55)
--- NOTE | 2018-02-16 13:16 | RADRPT ---
EXAM DATE/TIME: 02/16/2018 12:53 [facility] COMPARISON: CHEST PA & LAT, February 07, 2018, 10:14. INDICATIONS : Post-op cardiac artery bypass surgery with intubation and central line placement MEDICAL HISTORY : Diabetes mellitus type II. SURGICAL HISTORY : CABG. Coronary artery stent. ENCOUNTER: Initial ACUITY: 1 day PAIN SCORE: Non-responsive. LOCATION: Bilateral chest FINDINGS: A single AP semierect portable view of the chest was obtained and demonstrates that the patient is st atus post interval median sternotomy. An endotracheal tube is present with the tip approximately 4 cm above the kandi. A nasogastric tube has been placed and is seen coursing through the esophagus into the stomach. There is a right internal jugular central venous line in place with no pneumothorax. Th ere is a mediastinal chest tube and left-sided chest tube in place as well. The heart size appears mi ldly prominent. There is mild atelectasis at the left lung base. There are no new confluent infiltrat es or effusions. CONCLUSION: 1. Expected postoperative changes status post bypass grafting procedure. 2. Endotracheal tube and central line in place with no pneumothorax. Kamari Sabillon MD on February 16, 2018 at 13:09 Board Certified Radiologist. This report was verified electronically.
[2018-02-16] MEDS: ACETAMINOPHEN 1000 MG/100 ML 100 ML IV SCH ×2 (13:29→18:08)
[2018-02-16] MEDS: AMIODARONE 200 MG TAB PO SCH ×2 (14:00→21:17)
[2018-02-16] MEDS: CALCIUM CHLORIDE INJ 1 GM in SODIUM CHLORIDE 0.9% INJ 100 ML IV PRN ×2 (15:09→18:09)
[2018-02-16] MEDS: RESP: ALBUTEROL 2.5 MG/IPRATROPIUM 0.5 MG NEB (SCH) NEB ×2 (17:14→21:19)
[2018-02-16] MEDS: METOCLOPRAMIDE HCL 10 MG/2 ML VIAL IV PUSH SCH ×2 (18:10→21:17)
[2018-02-16 19:57] LABS: HEMOGLOBIN A1C 5.6 % (4.3-6.0)
[2018-02-16] MEDS: SODIUM CHLORIDE 0.9% FLUSH 10 ML FLUSH IV FLUSH SCH (21:00)
[2018-02-16] MEDS: VANCOMYCIN INJ 1,000 MG in SODIUM CHLOR 0.9% 250 ML INJ 250 ML IV SCH (21:16)
[2018-02-16] MEDS: ATORVASTATIN 40 MG TAB PO SCH (21:17)
[2018-02-17] VITALS (8 sets, daily range): BP systolic 103–148; BP diastolic 58–75; PULSE 95–168; RESP 14–20; TEMP 98.1–98.5; O2SAT 91–96
[2018-02-17] MEDS: ACETAMINOPHEN 1000 MG/100 ML 100 ML IV SCH ×2 (00:15→07:14)
[2018-02-17 04:05] LABS: HEMATOCRIT 27.8 % (39.0-51.0); HEMOGLOBIN 9.5 GM/DL (13.0-17.0); MEAN CELL VOLUME 91.9 FL (80.0-100.0); MEAN CORPUSCULAR HEMOGLOBIN 31.2 PG (27.0-34.0); MEAN PLATELET VOLUME 8.1 FL (7.0-11.0); PLATELET COUNT 132 TH/MM3 (150-450); RED BLOOD COUNT 3.03 MIL/MM3 (4.50-5.90); RED CELL DISTRIBUTION WIDTH 15.1 % (11.6-17.2); WHITE BLOOD COUNT 19.3 TH/MM3 (4.0-11.0)
[2018-02-17] MEDS: RESP: ALBUTEROL 2.5 MG/IPRATROPIUM 0.5 MG NEB (SCH) NEB ×6 (04:16→22:00)
--- NOTE | 2018-02-17 04:21 | RADRPT ---
EXAM DATE/TIME: 02/17/2018 03:35 [facility] COMPARISON: No previous studies available for comparison. INDICATIONS : Short of breath. MEDICAL HISTORY : Diabetes mellitus type II. SURGICAL HISTORY : CABG. Coronary artery stent. ENCOUNTER: Subsequent ACUITY: 2 days PAIN SCORE: 0/10 LOCATION: Bilateral chest FINDINGS: A single view of the chest demonstrates right central line in superior vena cava. Central and left ch est tube present. Subsegmental basal airspace disease. Previous nasogastric tube and endotracheal tub e have been removed. CONCLUSION: 1. Subsegmental airspace disease at the lung bases. Interval extubation and removal of NG tube. Chest tubes remain without pneumothorax. Robbie Blandon MD on February 17, 2018 at 4:19 Board Certified Radiologist. This report was verified electronically.
[2018-02-17 04:29] LABS: BICARBONATE 27.9 MEQ/L (21.0-32.0); CALCIUM 7.8 MG/DL (8.5-10.1); CREATININE 0.88 MG/DL (0.60-1.30); MAGNESIUM 2.2 MG/DL (1.5-2.5)
[2018-02-17] MEDS ORDERED: AMIODARONE 150 MG/D5W 97 ML BOLUS 10 MINUTES IV ONE ×2 (05:00)
[2018-02-17] MEDS: AMIODARONE 200 MG TAB PO SCH ×3 (06:00→20:56)
[2018-02-17] MEDS: PANTOPRAZOLE SOD 40 MG DELAYED RELEASE TAB PO SCH (06:00)
[2018-02-17] MEDS: AMIODARONE INJ 450 MG in SODIUM CHLOR 0.9% (EXCEL) INJ 250 ML IV PRN ×2 (07:31→14:03)
[2018-02-17] MEDS: VANCOMYCIN INJ 1,000 MG in SODIUM CHLOR 0.9% 250 ML INJ 250 ML IV SCH ×2 (08:14→20:55)
[2018-02-17] MEDS: METOPROLOL TARTRATE 5 MG/5 ML VIAL IV PUSH PRN (08:14)
[2018-02-17] MEDS: ASPIRIN 81 MG CHEW TAB PO SCH (08:15)
[2018-02-17] MEDS: POTASSIUM CHLORIDE 10 MEQ CONTROLLED RELEASE TAB PO SCH (08:15)
[2018-02-17] MEDS: DOCUSATE SODIUM 50 MG/SENNA 8.6 MG TAB PO SCH (08:16)
[2018-02-17] MEDS: SODIUM CHLORIDE 0.9% FLUSH 10 ML FLUSH IV FLUSH SCH ×2 (08:16→20:55)
[2018-02-17] MEDS: METOCLOPRAMIDE HCL 10 MG/2 ML VIAL IV PUSH SCH (08:20)
--- NOTE | 2018-02-17 08:23 | EKG ---
Date Performed: 02/17/2018 Time Performed: 03:46:56 PTAGE: 77 years EKG: Sinus tachycardia Inferior/lateral ST-T changes are nonspecific Borderline ECG PREVIOUS TRACING : 02/13/2018 18.14 Compared to previous tracing, heart rate has increased, inf erior and lateral ST depression has improved. DOCTOR: Doni Vizcaino Interpretating Date/Time 02/17/2018 08:22:09
[2018-02-17] MEDS ORDERED: DILTIAZEM HCL 25 MG/5 ML VIAL ONE (08:55)
[2018-02-17] MEDS ORDERED: DILTIAZEM HCL 50 MG/10 ML VIAL IV ONE (09:00)
[2018-02-17] MEDS ORDERED: METOPROLOL TARTRATE 25 MG TAB PO SCH ×2 (09:00→14:00)
[2018-02-17] MEDS ORDERED: PILL SPLITTER OTHER PRN (09:00)
[2018-02-17] MEDS ORDERED: METOPROLOL TARTRATE 25 MG TAB PO ONE ×2 (09:30→10:15)
[2018-02-17] MEDS ORDERED: DILTIAZEM INJ 125 MG in SODIUM CHLORIDE 0.9% INJ 100 ML IV PRN (09:30)
[2018-02-17] MEDS ORDERED: DEXTROSE 50% IN WATER 50 ML VIAL(D50) IV PUSH PRN (09:30)
[2018-02-17] MEDS ORDERED: GLUCAGON 1 MG/ML VIAL OTHER PRN (09:30)
[2018-02-17] MEDS ORDERED: BISACODYL 10 MG SUPP RECTAL PRN (09:30)
[2018-02-17] MEDS ORDERED: INSULIN DETEMIR 100 UNITS/ML VIAL SQ ONE (09:30)
[2018-02-17] MEDS: INSULIN ASPART SUPPLEMENTAL SCALE SQ SCH ×4 (10:00→22:00)
--- NOTE | 2018-02-17 15:54 | PD.CAR.PN ---
CVT Progress Note Subjective/Hospital Course: 77-year-old patient of Dr. Tanesha Gomez and Dr. Alvin Mcdermott. The patient presented with a non-ST segment NV. He was admitted on the 02/06/2018. Apparently woke up early a.m. He apparently goes to bed very late about 2 a.m. and about 4 a.m., he woke up with significant heartburn, which persisted. He went to check his blood pressure, which was over 200 systolic, so his brought him into the emergency room. Pain was also moderate to severe substernal into the left chest, nonradiating. He has a prior history of coronary artery disease with NV and stent to the LAD 10/2011. Patient initially went to the outside laborer on 02/09/2018 and was found to have severe 3- vessel disease also heavily thrombosed ostial to the proximal right coronary artery, questionable lesion at the ostium of the LAD. EF is 65. The decision was to place the patient on anticoagulation for 2-3 days and relook of the right coronary artery and possibly perform intravascular ultrasound imaging of the LAD. The patient developed a right groin hematoma post and then went back on the 02/12/2018 after being on heparin for 2 days. The left main had about a 15% stenosis, and a widely patent stent in the LAD. The second diagonal had a 60-70% ostial stenosis. The left circumflex had a 70% stenosis. There were collaterals from the left circumflex to the distal right. The RCA was 95% occluded. PAST MEDICAL HISTORY: Includes atrial fibrillation with prior ablation [address] Franz. He is on Xarelto at home for that. He has since been off the Xarelto since the 02/05/2018. He is also on Tikosyn which his last dose was on 02/05/2018. History of prior NV in 2011, CHF, hyperlipidemia, hypertension, morbid obesity, peripheral neuropathy, peripheral arterial disease , tremors, renal insufficiency, PAST SURGICAL HISTORY: Include cardiac catheterization, ablation, stent to the LAD, 02/15/18 Denies chest pain. Anemic with HCT 24%. He will require blood products based on ischemic heart disease and CABG. 02/16 CABG x 3 SVG to OM2 - fair SVG to D@ - good SVG to PDA - good EVH Resection left atrial appendage Sternal plates for closure s/p 3 units PRBC, crystalloid 3600cc, 560cc cell saver , EBL 1200cc extubated after surgery 02/17 went into afib early this am rate >150 bolused with amiodarone / followed by amiodarone gtt remained in afib RVR, BB resumed, discussed with Dr Gomez increase BB as tolerated/ since pt was on 100mg tid at home electrolytes replaced converted to NSR this afternoon, will gently diuresis PT/ OOB Objective: GENERAL: A&O x 3 SKIN: Warm and dry. prevena dressing to chest , incision intact to left chest HEAD: Normocephalic. EYES: No scleral icterus. No injection or drainage. NECK: Supple, trachea midline. No JVD or lymphadenopathy. CARDIOVASCULAR: Regular rate and rhythm without murmurs, gallops, or rubs. mild general edema RESPIRATORY: Breath sounds equal bilaterally. No accessory muscle use. diminished in bases GASTROINTESTINAL: Abdomen soft, non-tender, nondistended. MUSCULOSKELETAL: No cyanosis, or edema. BACK: Nontender without obvious deformity. No CVA tenderness. Vital Signs Date Time Temp Pulse Resp B/P (MAP) Pulse Ox O2 Delivery O2 Flow Rate FiO2 02/17/18 14:03 101 117/64 02/17/18 10:08 94 Nasal Cannula 5.00 02/17/18 07:44 14 02/17/18 07:44 14 02/17/18 07:31 158 126/72 02/17/18 05:00 192 152/65 02/17/18 03:00 96 Nasal Cannula 6.00 02/17/18 03:00 98.3 110 20 115/63 (80) 96 130/58 (82) 02/17/18 03:00 110 02/16/18 23:08 98.6 02/16/18 23:00 114 02/16/18 23:00 95 Nasal Cannula 6.00 02/16/18 23:00 97.9 114 20 118/67 (84) 95 100/68 (79) 02/16/18 21:20 96 Nasal Cannula 5.00 02/16/18 19:12 98.6 02/16/18 19:00 99 Nasal Cannula 6.00 02/16/18 19:00 97.7 96 22 122/55 (77) 99 122/70 (87) 02/16/18 19:00 96 Labs: Laboratory Tests Test 02/17/18 03:50 White Blood Count 19.3 TH/MM3 (4.0-11.0) Red Blood Count 3.03 MIL/MM3 (4.50-5.90) Hemoglobin 9.5 GM/DL (13.0-17.0) Hematocrit 27.8 % (39.0-51.0) Mean Corpuscular Volume 91.9 FL (80.0-100.0) Mean Corpuscular Hemoglobin 31.2 PG (27.0-34.0) Mean Corpuscular Hemoglobin Concent 34.0 % (32.0-36.0) Red Cell Distribution Width 15.1 % (11.6-17.2) Platelet Count 132 TH/MM3 (150-450) Mean Platelet Volume 8.1 FL (7.0-11.0) Blood Urea Nitrogen 17 MG/DL (7-18) Creatinine 0.88 MG/DL (0.60-1.30) Random Glucose 125 MG/DL (74-106) Calcium Level 7.8 MG/DL (8.5-10.1) Magnesium Level 2.2 MG/DL (1.5-2.5) Sodium Level 141 MEQ/L (136-145) Potassium Level 4.4 MEQ/L (3.5-5.1) Chloride Level 106 MEQ/L (98-107) Carbon Dioxide Level 27.9 MEQ/L (21.0-32.0) Anion Gap 7 MEQ/L (5-15) Estimat Glomerular Filtration Rate 84 ML/MIN (>89) Result Diagram: 02/17/18 0350 02/17/18 0350 Telemetry: Afib RVR> NSR (1) S/P CABG (coronary artery bypass graft) Plan: ASA, BB, amiodarone, statin pulm toileting OOB / PT/OT may need SNF or rehab at discharge gentle diuresis (2) Coronary artery disease (3) Ventricular tachycardia Plan: concerning for torsade - stopped Tikosyn (on BB), no further episodes (4) Hyperlipidemia (5) Hypertension Plan: controlled (6) Paroxysmal atrial flutter (7) Paroxysmal atrial fibrillation Plan: AFIB RVR> NSR amiodarone and BB Problem Qualifiers (1) Hyperlipidemia: Qualified Codes: E78.2 - Mixed hyperlipidemia (2) Hypertension: Qualified Codes: I10 - Essential (primary) hypertension Janeen Goel Feb 17, 2018 15:54
[2018-02-17] MEDS ORDERED: FUROSEMIDE 40 MG/4 ML VIAL IV PUSH ONE (16:00)
[2018-02-17] MEDS ORDERED: POTASSIUM CHLORIDE 10 MEQ CONTROLLED RELEASE TAB PO ONE (16:00)
--- NOTE | 2018-02-17 18:32 | PD.CARD.PN ---
Subjective Subjective Remarks Pt without CV complaints Objective Medications Current Medications Medications (Trade) Dose Ordered Sig/Marilyn Route Start Time Stop Time Status Last Admin (Lipitor) 40 mg HS PO 02/06/18 21:00 02/16/18 21:17 (KCl) 10 meq DAILY PO 02/06/18 11:30 02/17/18 08:15 (Milk Of Magnesia Liq) 30 ml Q12H PRN PO 02/06/18 11:15 02/07/18 08:49 (Senokot) 17.2 mg Q12H PRN PO 02/06/18 11:15 (Lactulose Liq) 30 ml DAILY PRN PO 02/06/18 11:15 Sodium Chloride 500 ml @ 30 mls/hr [id number] PRN IV 02/15/18 23:00 02/18/18 22:59 (NS Flush) 2 ml BID IV FLUSH 02/16/18 21:00 02/17/18 08:16 (NS Flush) 2 ml UNSCH PRN IV FLUSH 02/16/18 12:15 Albumin Human 250 ml @ 250 mls/hr UNSCH PRN IV 02/16/18 12:15 02/16/18 13:29 Vancomycin HCl 1000 mg/Sodium Chloride 250 ml @ 250 mls/hr Q12H IV 02/16/18 20:00 02/17/18 20:59 02/17/18 08:14 (Aspirin Chew) 81 mg DAILY PO 02/17/18 09:00 02/17/18 08:15 (Protonix) 40 mg DAILY@06 PO 02/17/18 06:00 02/17/18 06:00 (Cordarone) 400 mg Q8HR PO 02/16/18 14:00 02/17/18 14:03 (Tylenol) 650 mg Q4H PRN PO 02/16/18 12:15 (Percocet 5-325 Mg) 1 tab Q3H PRN PO 02/16/18 12:15 (Zofran Inj) 4 mg Q6H PRN IV PUSH 02/16/18 12:15 (Apresoline Inj) 10 mg Q4H PRN IV PUSH 02/16/18 12:15 (Lopressor Inj) 2.5 mg Q1H PRN IV PUSH 02/16/18 12:15 02/17/18 08:14 Potassium Chloride 100 ml @ 50 mls/hr UNSCH PRN IV 02/16/18 12:15 Potassium Chloride 100 ml @ 50 mls/hr UNSCH PRN IV 02/16/18 12:15 Potassium Chloride 100 ml @ 50 mls/hr UNSCH PRN IV 02/16/18 12:15 (KCl) 20 meq UNSCH PRN PO 02/16/18 12:15 (KCl) 40 meq UNSCH PRN PO 02/16/18 12:15 Magnesium Sulfate 2 gm/Sodium Chloride 104 ml @ 100 mls/hr UNSCH PRN IV 02/16/18 12:15 (Calcium Chloride Inj) 0.5 gm UNSCH PRN IV PUSH 02/16/18 12:15 (Duoneb Neb) 1 ampule Q6HR NEB NEB 02/16/18 16:00 02/17/18 04:16 (Duoneb Neb) 1 ampule Q2HR NEB PRN NEB 02/16/18 12:15 Amiodarone HCl 450 mg/Sodium Chloride 259 ml @ 34.53 mls/ hr TITRATE PRN IV 02/17/18 07:00 02/17/18 14:03 (Pill Splitter) 1 ea UNSCH PRN OTHER 02/17/18 09:00 (Duoneb Neb) 1 ampule Q6HR WHILE AWAKE NEB NEB 02/17/18 14:00 02/19/18 13:59 (Colace) 100 mg BID PO 02/17/18 21:00 (Theragran M Tab) 1 tab DAILY PO 02/18/18 09:00 (Milk Of Magnesia Liq) 30 ml DAILY PO 02/18/18 09:00 (Dulcolax Supp) 10 mg UNSCH PRN RECTAL 02/17/18 09:30 (Miralax) 17 gm DAILY PO 02/18/18 09:00 (Senokot) 8.6 mg HS PO 02/17/18 21:00 (Fleets Enema (Adult)) 118 ml UNSCH PRN RECTAL 02/19/18 09:00 (NovoLOG SUPPLEMENTAL SCALE) 1 02,06,10,14,18,22 SQ 02/17/18 10:00 02/18/18 09:59 02/17/18 14:00 (D50w (Vial) Inj) 50 ml UNSCH PRN IV PUSH 02/17/18 09:30 (Glucagon Inj) 1 mg UNSCH PRN OTHER 02/17/18 09:30 (Lopressor) 25 mg Q8HR PO 02/17/18 14:00 02/17/18 14:03 (NovoLOG SUPPLEMENTAL SCALE) 1 ACHS SQ 02/18/18 12:00 Vital Signs / I&O Vital Signs Date Time Temp Pulse Resp B/P (MAP) Pulse Ox O2 Delivery O2 Flow Rate FiO2 02/17/18 15:00 98.3 95 14 125/71 (89) 95 Arterial Line 02/17/18 15:00 95 02/17/18 15:00 95 Nasal Cannula 5.00 02/17/18 14:03 101 117/64 02/17/18 11:00 133 02/17/18 11:00 98.1 133 14 103/60 (74) 95 Arterial Line 02/17/18 11:00 95 Nasal Cannula 5.00 02/17/18 10:08 94 Nasal Cannula 5.00 02/17/18 07:44 14 02/17/18 07:44 14 02/17/18 07:31 158 126/72 02/17/18 07:00 168 02/17/18 07:00 98.4 168 18 126/72 (90) 91 Arterial Line 02/17/18 07:00 91 Nasal Cannula 6.00 02/17/18 05:00 192 152/65 02/17/18 03:00 96 Nasal Cannula 6.00 02/17/18 03:00 98.3 110 20 115/63 (80) 96 130/58 (82) 02/17/18 03:00 110 02/16/18 23:08 98.6 02/16/18 23:00 114 02/16/18 23:00 95 Nasal Cannula 6.00 02/16/18 23:00 97.9 114 20 118/67 (84) 95 100/68 (79) 02/16/18 21:20 96 Nasal Cannula 5.00 02/16/18 19:12 98.6 02/16/18 19:00 99 Nasal Cannula 6.00 02/16/18 19:00 97.7 96 22 122/55 (77) 99 122/70 (87) 02/16/18 19:00 96 I/O 4/23/18 4/2302/16/18 02/17/18 02/17/18 02/17/18 07:00 15:00 23:00 07:00 15:00 23:00 Intake Total 480 ml 4660 ml 4420 ml 920 ml 480 ml Output Total 1100 ml 1700 ml 770 ml 735 ml 1210 ml Balance -620 ml 2960 ml 3650 ml 185 ml -730 ml Intake Oral 480 ml 0 ml 720 ml 480 ml IV Total 3920 ml 200 ml Autotransfusion 560 ml Packed Cells 400 ml 400 ml Blood Product IV Normal Saline Flush 100 ml 100 ml Other 3600 ml Output Urine Total 1100 ml 500 ml 570 ml 545 ml 900 ml Gastric Drainage Total 0 ml Chest Tube Drainage Total 200 ml 190 ml 310 ml Estimated Blood Loss 1200 ml # Bowel Movements 0 0 Physical Exam GENERAL: Well developed, well nourished. No acute distress. HEENT: Jugular venous pressure is normal. CHEST: Lungs decreased, clear to auscultation bilaterally. Unlabored respiratory effort. CARDIAC: Regular rate and rhythm without S3, S4, or murmur. ABDOMEN: Soft, Bowel sounds present. EXTREMITIES: No clubbing, cyanosis, RLE 1+ edema. l Laboratory Laboratory Tests Test 02/17/18 03:50 White Blood Count 19.3 TH/MM3 Red Blood Count 3.03 MIL/MM3 Hemoglobin 9.5 GM/DL Hematocrit 27.8 % Mean Corpuscular Volume 91.9 FL Mean Corpuscular Hemoglobin 31.2 PG Mean Corpuscular Hemoglobin Concent 34.0 % Red Cell Distribution Width 15.1 % Platelet Count 132 TH/MM3 Mean Platelet Volume 8.1 FL Blood Urea Nitrogen 17 MG/DL Creatinine 0.88 MG/DL Random Glucose 125 MG/DL Calcium Level 7.8 MG/DL Magnesium Level 2.2 MG/DL Sodium Level 141 MEQ/L Potassium Level 4.4 MEQ/L Chloride Level 106 MEQ/L Carbon Dioxide Level 27.9 MEQ/L Anion Gap 7 MEQ/L Estimat Glomerular Filtration Rate 84 ML/MIN Imaging Last 24 hours Impressions Chest X-Ray 02/17/18 0500 Signed Impressions: Service Date/Time: Saturday, February 17, 2018 03:35 - CONCLUSION: 1. Subsegmental airspace disease at the lung bases. Interval extubation and removal of NG tube. Chest tubes remain without pneumothorax. Robbie Blandon MD Assessment and Plan Problem List: (1) S/P CABG (coronary artery bypass graft) ICD Codes: Z95.1 - Presence of aortocoronary bypass graft Plan: ASA, BB, amiodarone, statin pulm toileting OOB / PT/OT may need SNF or rehab at discharge gentle diuresis ASA, BB, amiodarone, statin pulm toileting OOB / PT/OT may need SNF or rehab at discharge gentle diuresis (2) Paroxysmal atrial fibrillation ICD Codes: I48.0 - Paroxysmal atrial fibrillation Status: Chronic Plan: AFIB RVR> NSR likely some BB withdraw, titrate up some as he has hamore AF this afternoon (3) Coronary artery disease ICD Codes: I25.10 - Atherosclerotic heart disease of [place] coronary artery without angina pectoris (4) Ventricular tachycardia ICD Codes: I47.2 - Ventricular tachycardia (5) Hyperlipidemia ICD Codes: E78.5 - Hyperlipidemia, unspecified Status: Chronic (6) Hypertension ICD Codes: I10 - Essential (primary) hypertension Status: Chronic (7) Paroxysmal atrial flutter ICD Codes: I48.92 - Unspecified atrial flutter Status: Resolved Problem Qualifiers (1) Hyperlipidemia: Qualified Codes: E78.2 - Mixed hyperlipidemia (2) Hypertension: Qualified Codes: I10 - Essential (primary) hypertension Tanesha Gomez MD Feb 17, 2018 18:32
[2018-02-17] MEDS: SENNOSIDES 8.6 MG TAB PO SCH (20:55)
[2018-02-17] MEDS: DOCUSATE SODIUM 100 MG CAP PO SCH (20:55)
[2018-02-17] MEDS: METOPROLOL TARTRATE 50 MG TAB PO SCH (20:56)
[2018-02-17] MEDS: ATORVASTATIN 40 MG TAB PO SCH (20:56)
[2018-02-18] VITALS (13 sets, daily range): BP systolic 89–127; BP diastolic 53–73; PULSE 83–133; RESP 17–20; TEMP 97.7–98.4; O2SAT 92–97
[2018-02-18] MEDS: INSULIN ASPART SUPPLEMENTAL SCALE SQ SCH ×5 (02:00→21:00)
[2018-02-18] MEDS: RESP: ALBUTEROL 2.5 MG/IPRATROPIUM 0.5 MG NEB (SCH) NEB ×3 (04:00→08:17)
[2018-02-18 04:21] LABS: HEMATOCRIT 25.6 % (39.0-51.0); HEMOGLOBIN 8.6 GM/DL (13.0-17.0); MEAN CELL VOLUME 92.3 FL (80.0-100.0); MEAN CORPUSCULAR HEMOGLOBIN 31.1 PG (27.0-34.0); MEAN CORPUSCULAR HGB CONC 33.7 % (32.0-36.0); PLATELET COUNT 137 TH/MM3 (150-450); RED BLOOD COUNT 2.77 MIL/MM3 (4.50-5.90); RED CELL DISTRIBUTION WIDTH 15.7 % (11.6-17.2); WHITE BLOOD COUNT 15.9 TH/MM3 (4.0-11.0)
[2018-02-18 04:51] LABS: BICARBONATE 30.4 MEQ/L (21.0-32.0); CALCIUM 7.6 MG/DL (8.5-10.1); CREATININE 0.95 MG/DL (0.60-1.30); MAGNESIUM 2.1 MG/DL (1.5-2.5)
[2018-02-18] MEDS: METOPROLOL TARTRATE 50 MG TAB PO SCH ×3 (06:25→21:02)
[2018-02-18] MEDS: AMIODARONE 200 MG TAB PO SCH ×3 (06:25→21:01)
[2018-02-18] MEDS: PANTOPRAZOLE SOD 40 MG DELAYED RELEASE TAB PO SCH (06:25)
[2018-02-18] MEDS: METOPROLOL TARTRATE 5 MG/5 ML VIAL IV PUSH PRN ×2 (06:34→23:31)
[2018-02-18 06:45] LABS: BANDS 4 % (0-6); BASOPHILS 1 % (0-2); CORRECTED NUCLEATED RBC 2 /100 WBC (0-0); LYMPHOCYTES 10 % (9-44); MONOCYTES 7 % (0-8); NEUTROPHIL # MANUAL DIFF 12.9 TH/MM3 (1.8-7.7); NUCLEATED RED BLOOD CELL 2 (0-0); POLYS (SEG NEUTROPHILS) 77 % (16-70)
[2018-02-18] MEDS ORDERED: METOPROLOL TARTRATE 25 MG TAB PO ONE (08:30)
[2018-02-18] MEDS: DOCUSATE SODIUM 100 MG CAP PO SCH ×2 (09:00→21:01)
[2018-02-18] MEDS: ASPIRIN 81 MG CHEW TAB PO SCH (09:00)
[2018-02-18] MEDS: POLYETHYLENE GLYCOL 17 GM PKG PO SCH (09:00)
[2018-02-18] MEDS: MULTIVITAMINS/MINERALS THERAPEUTIC TAB PO SCH (09:00)
[2018-02-18] MEDS ORDERED: MAGNESIUM SULFATE 1 GM PREMIX 100 ML IV ONE (09:00)
[2018-02-18] MEDS: glipiZIDE 5 MG TAB PO SCH ×2 (09:00→17:38)
[2018-02-18] MEDS: MAGNESIUM HYDROXIDE SUSP 30 ML CUP PO SCH (09:01)
[2018-02-18] MEDS: SODIUM CHLORIDE 0.9% FLUSH 10 ML FLUSH IV FLUSH SCH ×2 (09:02→21:00)
[2018-02-18 10:23] LABS: PHOSPHORUS 3.1 MG/DL (2.5-4.9)
[2018-02-18] MEDS ORDERED: FUROSEMIDE 40 MG/4 ML VIAL IV PUSH ONE (12:00)
[2018-02-18] MEDS ORDERED: POTASSIUM CHLORIDE 10 MEQ CONTROLLED RELEASE TAB PO ONE (12:00)
[2018-02-18] MEDS: DILTIAZEM HCL 90 MG TAB PO SCH ×3 (12:06→23:31)
--- NOTE | 2018-02-18 12:35 | PD.CAR.PN ---
CVT Progress Note Subjective/Hospital Course: 77-year-old patient of Dr. Tanesha Gomez and Dr. Alvin Mcdermott. The patient presented with a non-ST segment [place]. He was admitted on the 02/06/2018. Apparently woke up early a.m. He apparently goes to bed very late about 2 a.m. and about 4 a.m., he woke up with significant heartburn, which persisted. He went to check his blood pressure, which was over 200 systolic, so his brought him into the emergency room. Pain was also moderate to severe substernal into the left chest, nonradiating. He has a prior history of coronary artery disease with [place] and stent to the LAD 10/2011. Patient initially went to the [facility] on 02/09/2018 and was found to have severe 3- vessel disease also heavily thrombosed ostial to the proximal right coronary artery, questionable lesion at the ostium of the LAD. EF is 65. The decision was to place the patient on anticoagulation for 2-3 days and relook of the right coronary artery and possibly perform intravascular ultrasound imaging of the LAD. The patient developed a right groin hematoma post and then went back on the 02/12/2018 after being on heparin for 2 days. The left main had about a 15% stenosis, and a widely patent stent in the LAD. The second diagonal had a 60-70% ostial stenosis. The left circumflex had a 70% stenosis. There were collaterals from the left circumflex to the distal right. The RCA was 95% occluded. PAST MEDICAL HISTORY: Includes atrial fibrillation with prior ablation [address] Franz. He is on Xarelto at home for that. He has since been off the Xarelto since the 02/05/2018. He is also on Tikosyn which his last dose was on 02/05/2018. History of prior [place] in 2011, CHF, hyperlipidemia, hypertension, morbid obesity, peripheral neuropathy, peripheral arterial disease , tremors, renal insufficiency, PAST SURGICAL HISTORY: Include cardiac catheterization, ablation, stent to the LAD, 02/15/18 Denies chest pain. Anemic with HCT 24%. He will require blood products based on ischemic heart disease and CABG. 02/16 CABG x 3 SVG to OM2 - fair SVG to D@ - good SVG to PDA - good EVH Resection left atrial appendage Sternal plates for closure s/p 3 units PRBC, crystalloid 3600cc, 560cc cell saver , EBL 1200cc extubated after surgery 02/17 went into afib early this am rate >150 bolused with amiodarone / followed by amiodarone gtt remained in afib RVR, BB resumed, discussed with Dr Gomez increase BB as tolerated/ since pt was on 100mg tid at home electrolytes replaced converted to NSR this afternoon, will gently diuresis PT/ OOB 02/18 pt converted to NSR late last night , now back in Afib consult placed to Dr Franz per Dr Campos continue BB, amiodarone, add po cardizem leave chest tubes in for now / eval for removal later today gentle diuresis PT/OT Objective: GENERAL: A&O x 3 SKIN: Warm and dry. prevena dressing to chest , incision intact to left leg HEAD: Normocephalic. EYES: No scleral icterus. No injection or drainage. NECK: Supple, trachea midline. No JVD or lymphadenopathy. CARDIOVASCULAR: irregular rate and rhythm no gallops, or rubs. RESPIRATORY: diminished in bases, few crackles Breath sounds equal bilaterally. No accessory muscle use. GASTROINTESTINAL: Abdomen soft, non-tender, nondistended. MUSCULOSKELETAL: No cyanosis, or edema. BACK: Nontender without obvious deformity. No CVA tenderness. Vital Signs Date Time Temp Pulse Resp B/P (MAP) Pulse Ox O2 Delivery O2 Flow Rate FiO2 02/18/18 11:00 96 Nasal Cannula 5.00 02/18/18 11:00 98.3 133 18 89/65 (73) 96 02/18/18 11:00 128 02/18/18 07:50 97 Nasal Cannula 6.00 02/18/18 07:00 98.1 125 18 99/73 (82) 97 02/18/18 07:00 97 Nasal Cannula 6.00 02/18/18 07:00 125 02/18/18 03:00 98.1 94 20 99/57 (71) 95 02/18/18 03:00 94 02/18/18 03:00 95 Nasal Cannula 6.00 02/18/18 00:12 20 02/17/18 23:00 111 02/17/18 23:00 94 Nasal Cannula 6.00 02/17/18 23:00 98.5 111 20 148/75 (99) 94 02/17/18 20:23 92 Nasal Cannula 6.00 02/17/18 19:00 98.3 102 20 110/59 (76) 92 02/17/18 19:00 102 02/17/18 19:00 92 Nasal Cannula 6.00 02/17/18 15:00 98.3 95 14 125/71 (89) 95 Arterial Line 02/17/18 15:00 95 02/17/18 15:00 95 Nasal Cannula 5.00 02/17/18 14:03 101 117/64 Labs: Laboratory Tests Test 02/18/18 04:05 White Blood Count 15.9 TH/MM3 (4.0-11.0) Red Blood Count 2.77 MIL/MM3 (4.50-5.90) Hemoglobin 8.6 GM/DL (13.0-17.0) Hematocrit 25.6 % (39.0-51.0) Mean Corpuscular Volume 92.3 FL (80.0-100.0) Mean Corpuscular Hemoglobin 31.1 PG (27.0-34.0) Mean Corpuscular Hemoglobin Concent 33.7 % (32.0-36.0) Red Cell Distribution Width 15.7 % (11.6-17.2) Platelet Count 137 TH/MM3 (150-450) Mean Platelet Volume 8.0 FL (7.0-11.0) CBC Comment AUTO DIFF Differential Total Cells Counted 100 Neutrophils % (Manual) 77 % (16-70) Band Neutrophils % 4 % (0-6) Lymphocytes % 10 % (9-44) Monocytes % 7 % (0-8) Eosinophils % 1 % (0-4) Basophils % 1 % (0-2) Neutrophils # (Manual) 12.9 TH/MM3 (1.8-7.7) Nucleated Red Blood Cells 2 /100 WBC (0-0) Differential Comment FINAL DIFF MANUAL Platelet Estimate LOW (NORMAL) Platelet Morphology Comment NORMAL (NORMAL) Blood Urea Nitrogen 20 MG/DL (7-18) Creatinine 0.95 MG/DL (0.60-1.30) Random Glucose 116 MG/DL (74-106) Calcium Level 7.6 MG/DL (8.5-10.1) Magnesium Level 2.1 MG/DL (1.5-2.5) Sodium Level 141 MEQ/L (136-145) Potassium Level 4.1 MEQ/L (3.5-5.1) Chloride Level 105 MEQ/L (98-107) Carbon Dioxide Level 30.4 MEQ/L (21.0-32.0) Anion Gap 6 MEQ/L (5-15) Estimat Glomerular Filtration Rate 76 ML/MIN (>89) Phosphorus Level 3.1 MG/DL (2.5-4.9) Thyroid Stimulating Hormone 3rd Gen 1.540 uIU/ML (0.358-3.740) Result Diagram: 02/18/1840402/18/18404 Telemetry: NSR> Afib (1) S/P CABG (coronary artery bypass graft) Plan: ASA, BB, amiodarone, statin dc IV amiodarone add po cardizem per Dr Franz start xarelto when chest tubes out pulm toileting OOB / PT/OT may need SNF or rehab at discharge gentle diuresis (2) Paroxysmal atrial fibrillation Plan: AFIB RVR> NSR likely some BB withdraw, titrated up add cardizem per Dr Franz (3) Coronary artery disease (4) Ventricular tachycardia (5) Hyperlipidemia (6) Hypertension (7) Paroxysmal atrial flutter Problem Qualifiers (1) Hyperlipidemia: Qualified Codes: E78.2 - Mixed hyperlipidemia (2) Hypertension: Qualified Codes: I10 - Essential (primary) hypertension Janeen Goel Feb 18, 2018 12:35
[2018-02-18] MEDS: RESP: IPRATROPIUM 0.5 MG/2.5 ML NEB NEB SCH ×2 (13:19→19:00)
--- NOTE | 2018-02-18 17:56 | HHI.PR ---
Subjective Remarks Doing better Objective Vital Signs Date Time Temp Pulse Resp B/P (MAP) Pulse Ox O2 Delivery O2 Flow Rate FiO2 02/18/18 17:30 84 02/18/18 17:07 97.8 100 17 127/66 (86) 96 02/18/18 17:07 96 Nasal Cannula 3.00 02/18/18 15:00 93 Nasal Cannula 5.00 02/18/18 15:00 98.4 99 18 120/65 (83) 93 02/18/18 15:00 95 02/18/18 11:00 96 Nasal Cannula 5.00 02/18/18 11:00 98.3 133 18 89/65 (73) 96 02/18/18 11:00 128 02/18/18 07:50 97 Nasal Cannula 6.00 02/18/18 07:00 98.1 125 18 99/73 (82) 97 02/18/18 07:00 97 Nasal Cannula 6.00 02/18/18 07:00 125 02/18/18 03:00 98.1 94 20 99/57 (71) 95 02/18/18 03:00 94 02/18/18 03:00 95 Nasal Cannula 6.00 02/18/18 00:12 20 02/17/18 23:00 111 02/17/18 23:00 94 Nasal Cannula 6.00 02/17/18 23:00 98.5 111 20 148/75 (99) 94 02/17/18 20:23 92 Nasal Cannula 6.00 02/17/18 19:00 98.3 102 20 110/59 (76) 92 02/17/18 19:00 102 02/17/18 19:00 92 Nasal Cannula 6.00 I/O 02/17/18 02/17/18 02/17/18 02/18/18 02/18/18 02/18/18 07:00 15:00 23:00 07:00 15:00 23:00 Intake Total 920 ml 480 ml 240 ml 100 ml 600 ml Output Total 735 ml 1210 ml 1730 ml 2105 ml Balance 185 ml -730 ml -1490 ml 100 ml -1505 ml Intake Oral 720 ml 480 ml 240 ml 600 ml IV Total 200 ml 100 ml Output Urine Total 545 ml 900 ml 1600 ml 1975 ml Chest Tube Drainage Total 190 ml 310 ml 130 ml 130 ml Result Diagram: 02/18/18 0405 02/18/18 0405 Imaging Alert, fully oriented, sitting right jugular vein with a central line Lungs: ventilated Heart: S1, S2 regular, no rub Clean mediastinal surgical wound Mediastinal tube still draining bloodish fluid Abdomen: obese, no mass Ext: no edema Last Impressions Chest X-Ray 02/17/18 0500 Signed Impressions: Service Date/Time: Saturday, February 17, 2018 03:35 - CONCLUSION: 1. Subsegmental airspace disease at the lung bases. Interval extubation and removal of NG tube. Chest tubes remain without pneumothorax. Robbie Blandon MD Chest CT 02/14/18 0000 Signed Impressions: Service Date/Time: Wednesday, February 14, 2018 08:03 - CONCLUSION: 1. Extensive coronary artery calcifications. 2. The lungs are clear and there is no acute or pulmonary disease. Kamari Sabillon MD Lower Extremity Ultrasound 02/13/18 0000 Signed Impressions: Service Date/Time: Tuesday, February 13, 2018 19:33 - CONCLUSION: Greater saphenous vein measurements as delineated above. Hasmukh Shi MD Carotid Artery Ultrasound 02/11/18 1409 Signed Impressions: Service Date/Time: Sunday, February 11, 2018 14:31 - CONCLUSION: 1. Mild increased velocities throughout the left carotid arteries which may reflect a mild to moderate proximal common carotid stenosis. 2. Bilateral carotid plaque without significant additional flow-limiting stenoses. 3. Antegrade vertebral artery flow bilaterally. Rob Gamez MD Current Medications Medications (Trade) Dose Ordered Sig/Marilyn Route Start Time Stop Time Status Last Admin (Lipitor) 40 mg HS PO 02/06/18 21:00 02/17/18 20:56 (Milk Of Magnesia Liq) 30 ml Q12H PRN PO 02/06/18 11:15 02/07/18 08:49 (Senokot) 17.2 mg Q12H PRN PO 02/06/18 11:15 (Lactulose Liq) 30 ml DAILY PRN PO 02/06/18 11:15 Sodium Chloride 500 ml @ 30 mls/hr [id number] PRN IV 02/15/18 23:00 02/18/18 22:59 (NS Flush) 2 ml BID IV FLUSH 02/16/18 21:00 02/18/18 09:02 (NS Flush) 2 ml UNSCH PRN IV FLUSH 02/16/18 12:15 (Aspirin Chew) 81 mg DAILY PO 02/17/18 09:00 02/18/18 09:00 (Protonix) 40 mg DAILY@06 PO 02/17/18 06:00 02/18/18 06:25 (Cordarone) 400 mg Q8HR PO 02/16/18 14:00 02/18/18 14:17 (Tylenol) 650 mg Q4H PRN PO 02/16/18 12:15 (Percocet 5-325 Mg) 1 tab Q3H PRN PO 02/16/18 12:15 02/17/18 23:12 (Zofran Inj) 4 mg Q6H PRN IV PUSH 02/16/18 12:15 (Apresoline Inj) 10 mg Q4H PRN IV PUSH 02/16/18 12:15 (Lopressor Inj) 2.5 mg Q1H PRN IV PUSH 02/16/18 12:15 02/18/18 06:34 Magnesium Sulfate 2 gm/Sodium Chloride 104 ml @ 100 mls/hr UNSCH PRN IV 02/16/18 12:15 (Calcium Chloride Inj) 0.5 gm UNSCH PRN IV PUSH 02/16/18 12:15 (Pill Splitter) 1 ea UNSCH PRN OTHER 02/17/18 09:00 (Colace) 100 mg BID PO 02/17/18 21:00 02/18/18 09:00 (Theragran M Tab) 1 tab DAILY PO 02/18/18 09:00 02/18/18 09:00 (Milk Of Magnesia Liq) 30 ml DAILY PO 02/18/18 09:00 02/18/18 09:01 (Dulcolax Supp) 10 mg UNSCH PRN RECTAL 02/17/18 09:30 (Miralax) 17 gm DAILY PO 02/18/18 09:00 02/18/18 09:00 (Senokot) 8.6 mg HS PO 02/17/18 21:00 02/17/18 20:55 (Fleets Enema (Adult)) 118 ml UNSCH PRN RECTAL 02/19/18 09:00 (D50w (Vial) Inj) 50 ml UNSCH PRN IV PUSH 02/17/18 09:30 (Glucagon Inj) 1 mg UNSCH PRN OTHER 02/17/18 09:30 (NovoLOG SUPPLEMENTAL SCALE) 1 ACHS SQ 02/18/18 12:00 02/18/18 17:00 (Lopressor) 75 mg Q8HR PO 02/18/18 14:00 02/18/18 15:28 (Atrovent Neb) 0.5 mg Q6HR WHILE AWAKE NEB NEB 02/18/18 10:00 02/18/18 13:19 (Glucotrol) 5 mg BIDAC PO 02/18/18 09:00 02/18/18 17:38 (Cardizem) 90 mg Q6HR PO 02/18/18 12:00 02/18/18 17:38 Assessment and Plan Problem List: (1) CHF (congestive heart failure) ICD Codes: I50.9 - Heart failure, unspecified Plan: on optimal medical management (2) Non-STEMI (non-ST elevated myocardial infarction) ICD Codes: I21.4 - Non-ST elevation (NSTEMI) myocardial infarction Status: Acute Plan: SP CABG. Doing well Talking, no SOB (3) ATRIAL FIBRILLATION Status: Acute Plan: Atrial fib w FVR post CABG. Discussed the case with Dr Brand. Michael added. Back into sinus rhythm Rate control Long acting cardizem in AM Diann Franz MD Feb 18, 2018 17:56
[2018-02-18] MEDS: SENNOSIDES 8.6 MG TAB PO SCH (21:01)
[2018-02-18] MEDS: ATORVASTATIN 40 MG TAB PO SCH (21:02)
[2018-02-19] VITALS (25 sets, daily range): BP systolic 103–121; BP diastolic 54–80; PULSE 71–127; RESP 20; TEMP 97.8–99; O2SAT 94–100
[2018-02-19 04:45] LABS: HEMOGLOBIN 8.7 GM/DL (13.0-17.0); MEAN CELL VOLUME 92.1 FL (80.0-100.0); MEAN CORPUSCULAR HEMOGLOBIN 30.9 PG (27.0-34.0); MEAN CORPUSCULAR HGB CONC 33.5 % (32.0-36.0); MEAN PLATELET VOLUME 8.2 FL (7.0-11.0); PLATELET COUNT 130 TH/MM3 (150-450); RED BLOOD COUNT 2.83 MIL/MM3 (4.50-5.90); WHITE BLOOD COUNT 15.2 TH/MM3 (4.0-11.0)
[2018-02-19 05:09] LABS: BICARBONATE 30.5 MEQ/L (21.0-32.0); CALCIUM 7.8 MG/DL (8.5-10.1); CREATININE 0.96 MG/DL (0.60-1.30); MAGNESIUM 2.2 MG/DL (1.5-2.5)
[2018-02-19] MEDS: METOPROLOL TARTRATE 50 MG TAB PO SCH ×3 (06:00→21:53)
[2018-02-19] MEDS: PANTOPRAZOLE SOD 40 MG DELAYED RELEASE TAB PO SCH (06:14)
[2018-02-19] MEDS: DILTIAZEM HCL 90 MG TAB PO SCH (06:14)
[2018-02-19] MEDS: glipiZIDE 5 MG TAB PO SCH ×2 (06:14→15:54)
[2018-02-19] MEDS: AMIODARONE 200 MG TAB PO SCH ×2 (06:14→12:59)
[2018-02-19] MEDS: INSULIN ASPART SUPPLEMENTAL SCALE SQ SCH ×4 (08:00→21:00)
[2018-02-19] MEDS: RESP: IPRATROPIUM 0.5 MG/2.5 ML NEB NEB SCH ×3 (08:23→20:23)
--- NOTE | 2018-02-19 08:27 | PD.CARD.PN ---
Subjective Subjective Remarks Feeling better. Objective Medications Current Medications Medications (Trade) Dose Ordered Sig/Marilyn Route Start Time Stop Time Status Last Admin (Lipitor) 40 mg HS PO 02/06/18 21:00 02/18/18 21:02 (Milk Of Magnesia Liq) 30 ml Q12H PRN PO 02/06/18 11:15 02/07/18 08:49 (Senokot) 17.2 mg Q12H PRN PO 02/06/18 11:15 (Lactulose Liq) 30 ml DAILY PRN PO 02/06/18 11:15 (NS Flush) 2 ml BID IV FLUSH 02/16/18 21:00 02/18/18 21:00 (NS Flush) 2 ml UNSCH PRN IV FLUSH 02/16/18 12:15 (Aspirin Chew) 81 mg DAILY PO 02/17/18 09:00 02/18/18 09:00 (Protonix) 40 mg DAILY@06 PO 02/17/18 06:00 02/19/18 06:14 (Cordarone) 400 mg Q8HR PO 02/16/18 14:00 02/19/18 06:14 (Tylenol) 650 mg Q4H PRN PO 02/16/18 12:15 (Percocet 5-325 Mg) 1 tab Q3H PRN PO 02/16/18 12:15 02/17/18 23:12 (Zofran Inj) 4 mg Q6H PRN IV PUSH 02/16/18 12:15 (Apresoline Inj) 10 mg Q4H PRN IV PUSH 02/16/18 12:15 (Lopressor Inj) 2.5 mg Q1H PRN IV PUSH 02/16/18 12:15 02/18/18 23:31 Magnesium Sulfate 2 gm/Sodium Chloride 104 ml @ 100 mls/hr UNSCH PRN IV 02/16/18 12:15 (Calcium Chloride Inj) 0.5 gm UNSCH PRN IV PUSH 02/16/18 12:15 (Pill Splitter) 1 ea UNSCH PRN OTHER 02/17/18 09:00 (Colace) 100 mg BID PO 02/17/18 21:00 02/18/18 21:01 (Theragran M Tab) 1 tab DAILY PO 02/18/18 09:00 02/18/18 09:00 (Milk Of Magnesia Liq) 30 ml DAILY PO 02/18/18 09:00 02/18/18 09:01 (Dulcolax Supp) 10 mg UNSCH PRN RECTAL 02/17/18 09:30 (Miralax) 17 gm DAILY PO 02/18/18 09:00 02/18/18 09:00 (Senokot) 8.6 mg HS PO 02/17/18 21:00 02/18/18 21:01 (Fleets Enema (Adult)) 118 ml UNSCH PRN RECTAL 02/19/18 09:00 (D50w (Vial) Inj) 50 ml UNSCH PRN IV PUSH 02/17/18 09:30 (Glucagon Inj) 1 mg UNSCH PRN OTHER 02/17/18 09:30 (NovoLOG SUPPLEMENTAL SCALE) 1 ACHS SQ 02/18/18 12:00 02/18/18 21:00 (Lopressor) 75 mg Q8HR PO 02/18/18 14:00 02/19/18 06:00 (Atrovent Neb) 0.5 mg Q6HR WHILE AWAKE NEB NEB 02/18/18 10:00 02/18/18 19:00 (Glucotrol) 5 mg BIDAC PO 02/18/18 09:00 02/19/18 06:14 (Cardizem) 90 mg Q6HR PO 02/18/18 12:00 02/19/18 06:14 Vital Signs / I&O Vital Signs Date Time Temp Pulse Resp B/P (MAP) Pulse Ox O2 Delivery O2 Flow Rate FiO2 02/19/18 06:00 76 02/19/18 05:00 77 02/19/18 04:00 78 02/19/18 03:00 98.1 125 20 103/58 (73) 96 02/19/18 03:00 96 Nasal Cannula 3.00 02/19/18 03:00 125 02/19/18 02:00 127 02/19/18 01:00 124 02/19/18 00:00 122 02/18/18 23:00 133 02/18/18 23:00 97.7 133 20 113/53 (73) 95 02/18/18 23:00 95 Nasal Cannula 4.00 02/18/18 22:00 92 02/18/18 21:00 98 02/18/18 20:00 90 02/18/18 19:00 98.2 83 20 117/61 (79) 94 02/18/18 19:00 92 Nasal Cannula 3.00 02/18/18 19:00 94 Nasal Cannula 3.00 02/18/18 19:00 83 02/18/18 18:00 84 02/18/18 17:30 84 02/18/18 17:07 97.8 100 17 127/66 (86) 96 02/18/18 17:07 96 Nasal Cannula 3.00 02/18/18 15:00 93 Nasal Cannula 5.00 02/18/18 15:00 98.4 99 18 120/65 (83) 93 02/18/18 15:00 95 02/18/18 11:00 96 Nasal Cannula 5.00 02/18/18 11:00 98.3 133 18 89/65 (73) 96 02/18/18 11:00 128 I/O 02/18/18 02/18/18 02/18/18 02/19/18 02/19/18 02/19/18 07:00 15:00 23:00 07:00 15:00 23:00 Intake Total 240 ml 100 ml 600 ml 240 ml Output Total 1730 ml 2105 ml 610 ml Balance -1490 ml 100 ml -1505 ml -370 ml Intake Oral 240 ml 600 ml 240 ml IV Total 100 ml Output Urine Total 1600 ml 1975 ml 500 ml Chest Tube Drainage Total 130 ml 130 ml 110 ml Physical Exam GENERAL: Obese, well-developed patient. SKIN: Warm and dry. Midsternal dressing sealed, intact, no drainage HEAD: Normocephalic. EYES: No scleral icterus. No injection or drainage. NECK: Supple, trachea midline. No JVD or lymphadenopathy. CARDIOVASCULAR: Regular rate and rhythm without murmurs, gallops, or rubs. RESPIRATORY: Breath sounds equal, diminished bilaterally. No accessory muscle use. GASTROINTESTINAL: Abdomen soft, obese non-tender, nondistended. EXTREMITIES: No cyanosis, 2+ dependent pitting edema. NEUROLOGICAL: Awake, alert, and oriented x 3. Non-focal. Laboratory Laboratory Tests Test 02/19/18 03:40 White Blood Count 15.2 TH/MM3 Red Blood Count 2.83 MIL/MM3 Hemoglobin 8.7 GM/DL Hematocrit 26.0 % Mean Corpuscular Volume 92.1 FL Mean Corpuscular Hemoglobin 30.9 PG Mean Corpuscular Hemoglobin Concent 33.5 % Red Cell Distribution Width 16.0 % Platelet Count 130 TH/MM3 Mean Platelet Volume 8.2 FL Blood Urea Nitrogen 25 MG/DL Creatinine 0.96 MG/DL Random Glucose 87 MG/DL Calcium Level 7.8 MG/DL Magnesium Level 2.2 MG/DL Sodium Level 139 MEQ/L Potassium Level 4.0 MEQ/L Chloride Level 102 MEQ/L Carbon Dioxide Level 30.5 MEQ/L Anion Gap 7 MEQ/L Estimat Glomerular Filtration Rate 76 ML/MIN Imaging Last Impressions Chest X-Ray 02/17/18 0500 Signed Impressions: Service Date/Time: Saturday, February 17, 2018 03:35 - CONCLUSION: 1. Subsegmental airspace disease at the lung bases. Interval extubation and removal of NG tube. Chest tubes remain without pneumothorax. Robbie Blandon MD Chest CT 02/14/18 0000 Signed Impressions: Service Date/Time: Wednesday, February 14, 2018 08:03 - CONCLUSION: 1. Extensive coronary artery calcifications. 2. The lungs are clear and there is no acute or pulmonary disease. Kamari Sabillon MD Lower Extremity Ultrasound 02/13/18 0000 Signed Impressions: Service Date/Time: Tuesday, February 13, 2018 19:33 - CONCLUSION: Greater saphenous vein measurements as delineated above. Hasmukh Shi MD Carotid Artery Ultrasound 02/11/18 1409 Signed Impressions: Service Date/Time: Sunday, February 11, 2018 14:31 - CONCLUSION: 1. Mild increased velocities throughout the left carotid arteries which may reflect a mild to moderate proximal common carotid stenosis. 2. Bilateral carotid plaque without significant additional flow-limiting stenoses. 3. Antegrade vertebral artery flow bilaterally. Rob Gamez MD Assessment and Plan Problem List: (1) Paroxysmal atrial fibrillation ICD Codes: I48.0 - Paroxysmal atrial fibrillation Status: Chronic Plan: Sinus rhythm on telemetry this morning. He converted overnight. He remains on Cardizem 90 mg p.o. every 6 hours. Blood pressure has been low overnight. Will convert to Cardizem CD 240 mg p.o. daily and monitor, per my discussion with Dr. Franz. Chelle Aquino Feb 19, 2018 08:27
[2018-02-19] MEDS: SODIUM CHLORIDE 0.9% FLUSH 10 ML FLUSH IV FLUSH SCH ×2 (09:00→21:52)
[2018-02-19] MEDS: POLYETHYLENE GLYCOL 17 GM PKG PO SCH (09:00)
[2018-02-19] MEDS ORDERED: SOD PHOSPHATE/SOD BIPHOSPHATE (ADULT) ENEMA 133ML RECTAL PRN (09:00)
[2018-02-19] MEDS ORDERED: POTASSIUM CHLORIDE 10 MEQ CONTROLLED RELEASE TAB PO ONE (09:15)
[2018-02-19] MEDS ORDERED: FUROSEMIDE 40 MG/4 ML VIAL IV PUSH ONE (09:15)
[2018-02-19] MEDS: DOCUSATE SODIUM 100 MG CAP PO SCH ×2 (09:23→21:53)
[2018-02-19] MEDS: DILTIAZEM-CD 240 MG CAP ER PO SCH (09:23)
[2018-02-19] MEDS: MAGNESIUM HYDROXIDE SUSP 30 ML CUP PO SCH (09:23)
[2018-02-19] MEDS: ASPIRIN 81 MG CHEW TAB PO SCH (09:23)
[2018-02-19] MEDS: MULTIVITAMINS/MINERALS THERAPEUTIC TAB PO SCH (09:23)
--- NOTE | 2018-02-19 15:44 | PD.CAR.PN ---
CVT Progress Note Subjective/Hospital Course: 77-year-old patient of Dr. Tanesha Gomez and Dr. Alvin Mcdermott. The patient presented with a non-ST segment MD. He was admitted on the 02/06/2018. Apparently woke up early a.m. He apparently goes to bed very late about 2 a.m. and about 4 a.m., he woke up with significant heartburn, which persisted. He went to check his blood pressure, which was over 200 systolic, so his brought him into the emergency room. Pain was also moderate to severe substernal into the left chest, nonradiating. He has a prior history of coronary artery disease with MD and stent to the LAD 10/2011. Patient initially went to the [facility] on 02/09/2018 and was found to have severe 3- vessel disease also heavily thrombosed ostial to the proximal right coronary artery, questionable lesion at the ostium of the LAD. EF is 65. The decision was to place the patient on anticoagulation for 2-3 days and relook of the right coronary artery and possibly perform intravascular ultrasound imaging of the LAD. The patient developed a right groin hematoma post and then went back on the 02/12/2018 after being on heparin for 2 days. The left main had about a 15% stenosis, and a widely patent stent in the LAD. The second diagonal had a 60-70% ostial stenosis. The left circumflex had a 70% stenosis. There were collaterals from the left circumflex to the distal right. The RCA was 95% occluded. PAST MEDICAL HISTORY: Includes atrial fibrillation with prior ablation [address] Franz. He is on Xarelto at home for that. He has since been off the Xarelto since the 02/05/2018. He is also on Tikosyn which his last dose was on 02/05/2018. History of prior MD in 2011, CHF, hyperlipidemia, hypertension, morbid obesity, peripheral neuropathy, peripheral arterial disease , tremors, renal insufficiency, PAST SURGICAL HISTORY: Include cardiac catheterization, ablation, stent to the LAD, 02/15/18 Denies chest pain. Anemic with HCT 24%. He will require blood products based on ischemic heart disease and CABG. 02/16 CABG x 3 SVG to OM2 - fair SVG to D@ - good SVG to PDA - good EVH Resection left atrial appendage Sternal plates for closure s/p 3 units PRBC, crystalloid 3600cc, 560cc cell saver , EBL 1200cc extubated after surgery 02/17 went into afib early this am rate >150 bolused with amiodarone / followed by amiodarone gtt remained in afib RVR, BB resumed, discussed with Dr Gomez increase BB as tolerated/ since pt was on 100mg tid at home electrolytes replaced converted to NSR this afternoon, will gently diuresis PT/ OOB 02/18 pt converted to NSR late last night , now back in Afib consult placed to Dr Franz per Dr Campos continue BB, amiodarone, add po cardizem leave chest tubes in for now / eval for removal later today gentle diuresis PT/OT 02/19 pt converted back to NSR BP low this am , discuss with Dr Franz decrease amiodarone, continue cardizem CD decrease BB if needed chest tube dc without difficulty Objective: GENERAL: A&O x 3 SKIN: Warm and dry. prevena dressing to chest , incision intact to left leg HEAD: Normocephalic. EYES: No scleral icterus. No injection or drainage. NECK: Supple, trachea midline. No JVD or lymphadenopathy. CARDIOVASCULAR: Regular rate and rhythm without murmurs, gallops, or rubs. mild general edema RESPIRATORY: Breath sounds equal bilaterally. No accessory muscle use. diminished in bases GASTROINTESTINAL: Abdomen soft, non-tender, nondistended. MUSCULOSKELETAL: No cyanosis, or edema. BACK: Nontender without obvious deformity. No CVA tenderness. Vital Signs Date Time Temp Pulse Resp B/P (MAP) Pulse Ox O2 Delivery O2 Flow Rate FiO2 02/19/18 15:00 97.8 87 20 121/58 (79) 95 02/19/18 15:00 95 Nasal Cannula 2.00 02/19/18 15:00 86 02/19/18 14:00 86 02/19/18 13:00 82 02/19/18 12:00 88 02/19/18 11:00 71 02/19/18 11:00 98.9 80 20 110/80 (90) 96 02/19/18 11:00 96 Nasal Cannula 2.00 02/19/18 10:00 81 02/19/18 09:00 80 02/19/18 08:26 100 Nasal Cannula 2.00 02/19/18 08:00 71 02/19/18 08:00 98.7 100 20 110/56 (74) 94 02/19/18 08:00 94 Nasal Cannula 2.00 02/19/18 06:00 76 02/19/18 05:00 77 02/19/18 04:00 78 02/19/18 03:00 98.1 125 20 103/58 (73) 96 02/19/18 03:00 96 Nasal Cannula 3.00 02/19/18 03:00 125 02/19/18 02:00 127 02/19/18 01:00 124 02/19/18 00:00 122 02/18/18 23:00 133 02/18/18 23:00 97.7 133 20 113/53 (73) 95 02/18/18 23:00 95 Nasal Cannula 4.00 02/18/18 22:00 92 02/18/18 21:00 98 02/18/18 20:00 90 02/18/18 19:00 98.2 83 20 117/61 (79) 94 02/18/18 19:00 92 Nasal Cannula 3.00 02/18/18 19:00 94 Nasal Cannula 3.00 02/18/18 19:00 83 02/18/18 18:00 84 02/18/18 17:30 84 02/18/18 17:07 97.8 100 17 127/66 (86) 96 02/18/18 17:07 96 Nasal Cannula 3.00 Labs: Laboratory Tests Test 02/19/18 03:40 White Blood Count 15.2 TH/MM3 (4.0-11.0) Red Blood Count 2.83 MIL/MM3 (4.50-5.90) Hemoglobin 8.7 GM/DL (13.0-17.0) Hematocrit 26.0 % (39.0-51.0) Mean Corpuscular Volume 92.1 FL (80.0-100.0) Mean Corpuscular Hemoglobin 30.9 PG (27.0-34.0) Mean Corpuscular Hemoglobin Concent 33.5 % (32.0-36.0) Red Cell Distribution Width 16.0 % (11.6-17.2) Platelet Count 130 TH/MM3 (150-450) Mean Platelet Volume 8.2 FL (7.0-11.0) Blood Urea Nitrogen 25 MG/DL (7-18) Creatinine 0.96 MG/DL (0.60-1.30) Random Glucose 87 MG/DL (74-106) Calcium Level 7.8 MG/DL (8.5-10.1) Magnesium Level 2.2 MG/DL (1.5-2.5) Sodium Level 139 MEQ/L (136-145) Potassium Level 4.0 MEQ/L (3.5-5.1) Chloride Level 102 MEQ/L (98-107) Carbon Dioxide Level 30.5 MEQ/L (21.0-32.0) Anion Gap 7 MEQ/L (5-15) Estimat Glomerular Filtration Rate 76 ML/MIN (>89) Result Diagram: 02/19/1833902/19/18339 Telemetry: Afib > NSR (1) Paroxysmal atrial fibrillation Plan: Sinus rhythm on telemetry this morning. He converted overnight. He remains on Cardizem 90 mg p.o. every 6 hours. Blood pressure has been low overnight. Will convert to Cardizem CD 240 mg p.o. daily and monitor, per my discussion with Dr. Franz. (2) S/P CABG (coronary artery bypass graft) Plan: ASA, BB, amiodarone, statin po cardizem per Dr Franz start xarelto this evening pulm toileting OOB / PT/OT may need SNF or rehab at discharge gentle diuresis (3) Hypertension Plan: controlled (4) Hyperlipidemia Plan: Acceptable lipid profile. Continue statin therapy. (5) Coronary artery disease (6) Resection left atrial appendage Problem Qualifiers (1) Hypertension: Qualified Codes: I10 - Essential (primary) hypertension (2) Hyperlipidemia: Qualified Codes: E78.2 - Mixed hyperlipidemia Janeen Goel Feb 19, 2018 15:44
[2018-02-19] MEDS: ATORVASTATIN 40 MG TAB PO SCH (21:53)
[2018-02-19] MEDS: SENNOSIDES 8.6 MG TAB PO SCH (21:53)
[2018-02-20] VITALS (19 sets, daily range): BP systolic 104–132; BP diastolic 55–62; PULSE 72–97; RESP 18–20; TEMP 97.6–98.9; O2SAT 91–95
[2018-02-20 05:49] LABS: BICARBONATE 30.4 MEQ/L (21.0-32.0); CALCIUM 7.6 MG/DL (8.5-10.1); CREATININE 0.88 MG/DL (0.60-1.30); MAGNESIUM 2.3 MG/DL (1.5-2.5)
--- NOTE | 2018-02-20 05:49 | RADRPT ---
EXAM DATE/TIME: 02/20/2018 04:55 [facility] COMPARISON: CHEST SINGLE AP, February 17, 2018, 3:35. INDICATIONS : Chest tube removal- rule out pneumothorax. MEDICAL HISTORY : Diabetes mellitus type II SURGICAL HISTORY : CABG. Coronary artery stent. ENCOUNTER: Subsequent ACUITY: 1 day PAIN SCORE: Non-responsive. LOCATION: Bilateral chest FINDINGS: Interval removal of left chest drainage tube and mediastinal drain. No evidence of pneumothorax. Pa tchy areas of partially consolidated infiltrate in the medial lower lungs bilaterally, similar to eulalia or. The heart is stable in size. CONCLUSION: 1. No evidence of pneumothorax status post removal of left chest drainage tube. 2. Persistent bilateral medial lower lung infiltrates. Cosme Rivas MD on February 20, 2018 at 5:47 Board Certified Radiologist. This report was verified electronically.
[2018-02-20] MEDS: PANTOPRAZOLE SOD 40 MG DELAYED RELEASE TAB PO SCH (06:08)
[2018-02-20] MEDS: METOPROLOL TARTRATE 50 MG TAB PO SCH (06:08)
[2018-02-20] MEDS ORDERED: AMIODARONE 200 MG TAB PO SCH (09:00)
[2018-02-20] MEDS ORDERED: RIVAROXABAN 20 MG TAB PO SCH (09:15)
[2018-02-20] MEDS: POLYETHYLENE GLYCOL 17 GM PKG PO SCH (09:37)
[2018-02-20] MEDS: MAGNESIUM HYDROXIDE SUSP 30 ML CUP PO SCH (09:37)
[2018-02-20] MEDS: INSULIN ASPART SUPPLEMENTAL SCALE SQ SCH ×2 (09:37→12:22)
[2018-02-20] MEDS: MULTIVITAMINS/MINERALS THERAPEUTIC TAB PO SCH (09:40)
[2018-02-20] MEDS: DOCUSATE SODIUM 100 MG CAP PO SCH (09:40)
[2018-02-20] MEDS: ASPIRIN 81 MG CHEW TAB PO SCH (09:40)
[2018-02-20] MEDS: DILTIAZEM-CD 240 MG CAP ER PO SCH (09:45)
[2018-02-20] MEDS: glipiZIDE 5 MG TAB PO SCH (09:45)
[2018-02-20] MEDS: SODIUM CHLORIDE 0.9% FLUSH 10 ML FLUSH IV FLUSH SCH (09:46)
[2018-02-20] MEDS: RESP: IPRATROPIUM 0.5 MG/2.5 ML NEB NEB SCH ×2 (09:50→13:24)
[2018-02-20] MEDS ORDERED: AMIO200T PO (11:21)
[2018-02-20] MEDS ORDERED: METO-309 PO (11:21)
[2018-02-20] MEDS ORDERED: THERM PO (11:21)
[2018-02-20] MEDS ORDERED: DILT240C44 PO (11:21)
[2018-02-20] MEDS ORDERED: ASPI81 PO (11:21)
[2018-02-20] MEDS ORDERED: OXYC1TAB63 PO (11:21)
[2018-02-20] MEDS ORDERED: DOCU1CAP39 PO (11:21)
--- NOTE | 2018-02-20 11:29 | HHI.DS ---
Discharge Summary Admission Date Feb 06, 2018 at 10:08 Discharge Date: Feb 20, 2018 Admitting Diagnosis non STEMI, CHF,HTN, CAD, DM (1) Paroxysmal atrial flutter Diagnosis: Principal ICD Codes: I48.92 - Unspecified atrial flutter Status: Resolved (2) Hypertension Diagnosis: Principal ICD Codes: I10 - Essential (primary) hypertension Status: Chronic (3) ATRIAL FIBRILLATION Diagnosis: Principal Status: Acute (4) S/P CABG (coronary artery bypass graft) Diagnosis: Secondary ICD Codes: Z95.1 - Presence of aortocoronary bypass graft (5) SATURNINO (acute kidney injury) Diagnosis: Principal ICD Codes: N17.9 - Acute kidney failure, unspecified Status: Resolved (6) Non-STEMI (non-ST elevated myocardial infarction) Diagnosis: Principal ICD Codes: I21.4 - Non-ST elevation (NSTEMI) myocardial infarction Status: Acute (7) Resection left atrial appendage Diagnosis: Secondary Procedures CABG x 3 02/16 SVG to OM2 - fair SVG to D@ - good SVG to PDA - good EVH Resection left atrial appendage Sternal plates for closure Brief History 77-year-old patient of Dr. Tanesha Gomez and Dr. Alvin Mcdermott. The patient presented with a non-ST segment WA. He was admitted on the 02/06/2018. Apparently woke up early a.m. He apparently goes to bed very late about 2 a.m. and about 4 a.m., he woke up with significant heartburn, which persisted. He went to check his blood pressure, which was over 200 systolic, so his brought him into the emergency room. Pain was also moderate to severe substernal into the left chest, nonradiating. He has a prior history of coronary artery disease with WA and stent to the LAD 10/2011. Patient initially went to the [facility] lab[facility] on 02/09/2018 and was found to have severe 3- vessel disease also heavily thrombosed ostial to the proximal right coronary artery, questionable lesion at the ostium of the LAD. EF is 65. The decision was to place the patient on anticoagulation for 2-3 days and relook of the right coronary artery and possibly perform intravascular ultrasound imaging of the LAD. The patient developed a right groin hematoma post and then went back on the 02/12/2018 after being on heparin for 2 days. The left main had about a 15% stenosis, and a widely patent stent in the LAD. The second diagonal had a 60-70% ostial stenosis. The left circumflex had a 70% stenosis. There were collaterals from the left circumflex to the distal right. The RCA was 95% occluded. PAST MEDICAL HISTORY: Includes atrial fibrillation with prior ablation [address] Franz. He is on Xarelto at home for that. He has since been off the Xarelto since the 02/05/2018. He is also on Tikosyn which his last dose was on 02/05/2018. History of prior WA in 2011, CHF, hyperlipidemia, hypertension, morbid obesity, peripheral neuropathy, peripheral arterial disease , tremors, renal insufficiency, PAST SURGICAL HISTORY: Include cardiac catheterization, ablation, stent to the LAD, CBC/BMP: 02/19/18 0340 02/20/18 0349 Significant Findings Laboratory Tests Test 02/18/18 04:05 02/19/18 03:40 02/20/18 03:49 White Blood Count 15.9 TH/MM3 (4.0-11.0) 15.2 TH/MM3 (4.0-11.0) Red Blood Count 2.77 MIL/MM3 (4.50-5.90) 2.83 MIL/MM3 (4.50-5.90) Hemoglobin 8.6 GM/DL (13.0-17.0) 8.7 GM/DL (13.0-17.0) Hematocrit 25.6 % (39.0-51.0) 26.0 % (39.0-51.0) Platelet Count 137 TH/MM3 (150-450) 130 TH/MM3 (150-450) Neutrophils % (Manual) 77 % (16-70) Neutrophils # (Manual) 12.9 TH/MM3 (1.8-7.7) Nucleated Red Blood Cells 2 /100 WBC (0-0) Platelet Estimate LOW (NORMAL) Blood Urea Nitrogen 20 MG/DL (7-18) 25 MG/DL (7-18) 26 MG/DL (7-18) Random Glucose 116 MG/DL (74-106) Calcium Level 7.6 MG/DL (8.5-10.1) 7.8 MG/DL (8.5-10.1) 7.6 MG/DL (8.5-10.1) Estimat Glomerular Filtration Rate 76 ML/MIN (>89) 76 ML/MIN (>89) 84 ML/MIN (>89) Imaging Last Impressions Chest X-Ray 02/20/18 0600 Signed Impressions: Service Date/Time: Tuesday, February 20, 2018 04:55 - CONCLUSION: 1. No evidence of pneumothorax status post removal of left chest drainage tube. 2. Persistent bilateral medial lower lung infiltrates. Cosme Rivas MD Chest CT 02/14/18 0000 Signed Impressions: Service Date/Time: Wednesday, February 14, 2018 08:03 - CONCLUSION: 1. Extensive coronary artery calcifications. 2. The lungs are clear and there is no acute or pulmonary disease. Kamari Sabillon MD Lower Extremity Ultrasound 02/13/18 0000 Signed Impressions: Service Date/Time: Tuesday, February 13, 2018 19:33 - CONCLUSION: Greater saphenous vein measurements as delineated above. Hasmukh Shi MD Carotid Artery Ultrasound 02/11/18 1409 Signed Impressions: Service Date/Time: Sunday, February 11, 2018 14:31 - CONCLUSION: 1. Mild increased velocities throughout the left carotid arteries which may reflect a mild to moderate proximal common carotid stenosis. 2. Bilateral carotid plaque without significant additional flow-limiting stenoses. 3. Antegrade vertebral artery flow bilaterally. Rob Gamez MD PE at Discharge GENERAL: A&O x 3 SKIN: Warm and dry. Prevena dresssing to chest / incision intact left leg HEAD: Normocephalic. EYES: No scleral icterus. No injection or drainage. NECK: Supple, trachea midline. No JVD or lymphadenopathy. CARDIOVASCULAR: Regular rate and rhythm without murmurs, gallops, or rubs. mild general edema RESPIRATORY: Breath sounds equal bilaterally. No accessory muscle use. diminished in bases, GASTROINTESTINAL: Abdomen soft, non-tender, nondistended. MUSCULOSKELETAL: No cyanosis, or edema. BACK: Nontender without obvious deformity. No CVA tenderness. Hospital Course 02/15/18 Denies chest pain. Anemic with HCT 24%. He will require blood products based on ischemic heart disease and CABG. 02/16 CABG x 3 SVG to OM2 - fair SVG to D@ - good SVG to PDA - good EVH Resection left atrial appendage Sternal plates for closure s/p 3 units PRBC, crystalloid 3600cc, 560cc cell saver , EBL 1200cc extubated after surgery 02/17 went into afib early this am rate >150 bolused with amiodarone / followed by amiodarone gtt remained in afib RVR, BB resumed, discussed with Dr Gomez increase BB as tolerated/ since pt was on 100mg tid at home electrolytes replaced converted to NSR this afternoon, will gently diuresis PT/ OOB 02/18 pt converted to NSR late last night , now back in Afib consult placed to Dr Franz per Dr Campos continue BB, amiodarone, add po cardizem leave chest tubes in for now / eval for removal later today gentle diuresis PT/OT 02/19 pt converted back to NSR BP low this am , discuss with Dr Franz decrease amiodarone, continue cardizem CD decrease BB if needed chest tube dc without difficulty 02/20 pt on room air CXR noted, stable for discharge/ continue pulm toileting remains in NSR started back on xarelto Pt Condition on Discharge: Good Discharge Disposition: Rehab Inpatient Discharge Instructions DIET: Follow Instructions for: Heart Healthy Diet, Diabetic Diet Follow up Referrals: Cardiology - 1 Week @ [facility] with Diann Franz MD Cardiology, Interventional - 4 Weeks @ [facility] with Tanesha Gomez MD PCP Follow-up - 1 Week PCP Follow-up - 2 Weeks with Jacoby Mccloud D.o. Surgical - 2 Weeks with Argenis Campos MD New Orders: BASIC METABOLIC PROF - 2 Weeks CBC NO DIFF - 2 Weeks X-RAY CHEST PA & LAT - 2 Weeks New Medications: Amiodarone (Amiodarone) 200 Mg Tab 200 MG PO DAILY for heart rhythm, #30 TAB 1 Refill Aspirin (Tgt Aspirin) 81 Mg Chw 81 MG PO DAILY for Blood Clot Prevention, #30 EA 2 Refills Diltiazem CD 24 HR (Diltiazem CD 24 HR) 240 Mg Caper 240 MG PO DAILY for Blood Pressure Management, #30 CAP 2 Refills Docusate Sodium (Dok) 100 Mg Cap 100 MG PO BID for Constipation, #60 CAP 0 Refills Metoprolol Tartrate (Lopressor) 50 Mg Tab 50 MG PO Q8HR for Blood Pressure Management, #90 TAB 2 Refills Multiple Vitamins W/ Minerals (Thera M Plus) 1 Tab 1 TAB PO DAILY for multi vitamin, #30 TAB 2 Refills Oxycodone HCl/Acetaminophen (Oxycodone-Acetaminophen 5-325) 5 Mg-325 Mg Tablet 1 TAB PO Q4HR PRN for PAIN SCALE 1 TO 5, #30 TAB 0 Refills Continued Medications: Atorvastatin (Atorvastatin) 40 Mg Tab 40 MG PO HS for Cholesterol Management, #30 TAB 0 Refills Furosemide (Furosemide) 20 Mg Tab 20 MG PO DAILY, #30 TAB 0 Refills Glipizide (Glipizide) 5 Mg Tab 5 MG PO BIDAC for Blood Sugar Management, #60 TAB 0 Refills Take 30 minutes before a meal Potassium Chloride ER (Klor-Con 10) 10 Meq Tab 10 MEQ PO DAILY for Electrolyte Replacement, #30 TAB 0 Refills Rivaroxaban (Xarelto) 20 Mg Tab 20 MG PO DAILY for Blood Clot Prevention, TAB 0 Refills Discontinued Medications: Dofetilide (Tikosyn) 500 Mcg Cap 500 MCG PO BID for Regulate Heart Beat, #30 CAP 0 Refills For Creatinine Clearance >60 mL/min Metoprolol Tartrate (Metoprolol Tartrate) 100 Mg Tab 100 MG PO TID, #60 TAB 0 Refills Janeen Goel Feb 20, 2018 11:29
[2018-02-20] MEDS ORDERED: METOPROLOL TARTRATE 50 MG TAB PO SCH (14:00)
== END 2018-02-20 16:40 | DRG 234 ==
LOC: NEPC 07:09 → NEDA 10:08 → NEDH 19:15 → HCIS 20:53 → HCVI 02-16 12:42 → HCPC 02-18 16:50
PROVIDERS: ADMIT Thoracic Surgery (Cardiothoracic Vascular Surgery); ATTEND Thoracic Surgery (Cardiothoracic Vascular Surgery)
PROC: B2111ZZ Fluoroscopy of Multiple Coronary Arteries using Low Osmolar Contrast (ICD-10-PCS; 2018-02-09)
PROC: B2151ZZ Fluoroscopy of Left Heart using Low Osmolar Contrast (ICD-10-PCS; 2018-02-09)
PROC: 4A023N7 Measurement of Cardiac Sampling and Pressure, Left Heart, Percutaneous Approach (ICD-10-PCS; principal; 2018-02-09 13:30)
PROC: B2111ZZ Fluoroscopy of Multiple Coronary Arteries using Low Osmolar Contrast (ICD-10-PCS; 2018-02-12)
PROC: B240ZZ3 Ultrasonography of Single Coronary Artery, Intravascular (ICD-10-PCS; 2018-02-12)
PROC: 30233N1 Transfusion of Nonautologous Red Blood Cells into Peripheral Vein, Percutaneous Approach (ICD-10-PCS; 2018-02-15)
PROC: 06BQ4ZZ Excision of Left Saphenous Vein, Percutaneous Endoscopic Approach (ICD-10-PCS; 2018-02-16)
PROC: 02B70ZK Excision of Left Atrial Appendage, Open Approach (ICD-10-PCS; 2018-02-16)
PROC: 5A1221Z Performance of Cardiac Output, Continuous (ICD-10-PCS; 2018-02-16)
PROC: 021209W Bypass Coronary Artery, Three Arteries from Aorta with Autologous Venous Tissue, Open Approach (ICD-10-PCS; 2018-02-16 07:20)
DX: I21.4 Non-ST elevation (NSTEMI) myocardial infarction (principal); N17.9 Acute kidney failure, unspecified; I47.2 Ventricular tachycardia; E11.42 Type 2 diabetes mellitus with diabetic polyneuropathy; E11.22 Type 2 diabetes mellitus with diabetic chronic kidney disease; I48.92 Unspecified atrial flutter; E11.51 Type 2 diabetes mellitus with diabetic peripheral angiopathy without gangrene; I50.9 Heart failure, unspecified; I48.0 Paroxysmal atrial fibrillation; G62.9 Polyneuropathy, unspecified; E11.65 Type 2 diabetes mellitus with hyperglycemia; I13.0 Hypertensive heart and chronic kidney disease with heart failure and stage 1 through stage 4 chronic kidney disease, or unspecified chronic kidney disease; Z68.41 Body mass index [BMI] 40.0-44.9, adult; S30.1XXA Contusion of abdominal wall, initial encounter; D64.9 Anemia, unspecified; H53.8 Other visual disturbances; E78.2 Mixed hyperlipidemia; I25.110 Atherosclerotic heart disease of native coronary artery with unstable angina pectoris; N18.9 Chronic kidney disease, unspecified; E66.01 Morbid (severe) obesity due to excess calories; I97.630 Postprocedural hematoma of a circulatory system organ or structure following a cardiac catheterization; Y84.0 Cardiac catheterization as the cause of abnormal reaction of the patient, or of later complication, without mention of misadventure at the time of the procedure; Y92.239 Unspecified place in hospital as the place of occurrence of the external cause; I25.2 Old myocardial infarction; Z79.899 Other long term (current) drug therapy; Z79.01 Long term (current) use of anticoagulants; Z79.84 Long term (current) use of oral hypoglycemic drugs; Z87.891 Personal history of nicotine dependence; Z95.5 Presence of coronary angioplasty implant and graft; Z82.49 Family history of ischemic heart disease and other diseases of the circulatory system; Z82.41 Family history of sudden cardiac death
CPT/HCPCS: 36430; 71045; 71046; 71250; 76937; 80048; 80053; 80061; 81001; 82550; 82552; 82948; 83036; 83735; 83880; 84100; 84443; 84484; 85007; 85014; 85018; 85025; 85027; 85610; 85730; 86850; 86900; 86901; 86920; 87641; 88305; 92978; 93005; 93308; 93454; 93458; 93880; 93970; 93998; 94002; 94010; 94150; 94640; 94664; 94667; 94668; 99152; 99153; 99285; C1753; C1760; C1769; C1887; C1893; G0269; J0131; J0171; J0282; J0690; J1644; J1650; J1815; J1940; J2150; J2250; J2270; J2370; J2440; J2710; J2720; J2765; J2930; J3010; J3370; J3475; J3480; J7030; J7040; J7050; J7120; J7644; P9016; P9045; P9047; Q0163; Q9967